=== PATIENT | female | born 1940 | race Caucasian/White ===

== ENCOUNTER → 2016-08-01 | Outpatient (CLI) | payer MEDICARE, BC | END | disposition home or self-care (01) | LOC: LABWHC1 08:01 | PROVIDERS: ATTEND Internal Medicine Endocrinology, Diabetes & Metabolism | DX: C73 Malignant neoplasm of thyroid gland (principal); R53.83 Other fatigue | CPT/HCPCS: 36415; 82533; 84443 ==

== ENCOUNTER → 2016-11-04 | Outpatient (CLI) | payer MEDICARE, BC | END | disposition home or self-care (01) | LOC: LABWHC1 13:14 | PROVIDERS: ATTEND Internal Medicine Endocrinology, Diabetes & Metabolism | DX: C73 Malignant neoplasm of thyroid gland (principal) | CPT/HCPCS: 36415; 84432; 84443; 86800 ==

== ENCOUNTER → 2016-12-16 | Outpatient (CLI) | payer MEDICARE, BC ==
--- NOTE | 2016-12-16 23:31 | MR ---
EXAMINATION TYPE: MR shoulder LT wo con DATE OF EXAM: 12/16/2016 6:09 PM COMPARISON: NONE HISTORY: Left shoulder pain x 3 years, no trauma TECHNIQUE: Multiplanar, multisequence imaging of the left shoulder is performed without contrast. FINDINGS: Biceps tendon is intact. Subscapularis tendon is intact. There are foci of increased fluid signal at the greater tuberosity of the humerus. There is linear defect related to reconstructive surgery at th e greater tuberosity. There is narrowing at the glenohumeral joint with spur formation. There is spur ring at the inferior glenoid labrum. The anterior and posterior labrum appear intact. There is no bel dence of a fracture. There is some thinning of the supraspinatus tendon with increased signal. IMPRESSION: Osteoarthritis in the glenohumeral joint. Previous surgery. Degenerative cysts in the greater tuberos ity. There is a full-thickness tear of the supraspinatus tendon without any significant retraction.
== END | disposition home or self-care (01) ==
LOC: RADMRIMAIN 17:30
PROVIDERS: ATTEND Family Medicine
DX: M19.012 Primary osteoarthritis, left shoulder (principal); M75.122 Complete rotator cuff tear or rupture of left shoulder, not specified as traumatic; Z98.890 Other specified postprocedural states

== ENCOUNTER 2017-01-21 17:11 | Emergency (ER) | payer MEDICARE, BC ==
[2017-01-21 17:23] VITALS: TEMP 99
--- NOTE | 2017-01-21 18:02 | ED ---
General Adult HPI - General Chief complaint: Recheck/Abnormal Lab/Rx Stated complaint: poss shingles-DrDennis Sent Time Seen by Provider: 01/21/17 17:31 Source: patient, RN notes reviewed Mode of arrival: ambulatory Limitations: no limitations - History of Present Illness Initial comments: 76-year-old presented emergency department with chief complaint of possible singles in his mouth. Patient states that her primary care physician diagnosed her with she was a month ago she had some pain, tingling and felt that her lip was swollen. Patient states it was on both sides of her mouth, tongue and her upper and lower lips. Patient states she's had zoster back shot. Patient states she never had any open lesions or sores. Patient states that she started feeling better after starting steroids in antibiotics was states that it got worse today so her doctor told her to come emergency department to be checked out. Patient states that she does feel run down does not feel well generalized. She denies any chest pain, shortness of breath, headache, dizziness, blurred vision, focal weakness, nausea vomiting. - Related Data Home Medications Medication Instructions Recorded Confirmed HYDROcodone/APAP 7.5-325MG [[place] 1 tab PO Q6HR PRN 06/13/14 01/21/17 7.5-325] Lisinopril [Zestril] 5 mg PO HS 06/13/14 01/21/17 Verapamil HCl [Verapamil ER] 240 mg PO QAM 06/13/14 01/21/17 PARoxetine [Paxil] 20 mg PO HS 01/18/15 01/21/17 Aspirin 81 mg PO DAILY 02/21/16 01/21/17 Atorvastatin [Lipitor] 40 mg PO DAILY 02/21/16 01/21/17 ALPRAZolam [Xanax] 0.25 mg PO DAILY PRN 01/21/17 01/21/17 Levothyroxine Sodium [Synthroid] 100 mcg PO DAILY 01/21/17 01/21/17 Omeprazole [PriLOSEC] 20 mg PO DAILY 01/21/17 01/21/17 methylPREDNISolone Dose Pack See Taper PO DAILY 01/21/17 01/21/17 [Medrol Dose Pack] valACYclovir HCL [Valtrex] 1,000 mg PO Q12H 01/21/17 01/21/17 Allergies Allergy/AdvReac Type Severity Reaction Status Date / Time Sulfa (Sulfonamide Allergy Unknown Verified 01/21/17 17:50 Antibiotics) Review of Systems ROS Statement: Those systems with pertinent positive or pertinent negative responses have been documented in the HPI. ROS Other: All systems not noted in ROS Statement are negative. Past Medical History Past Medical History: Cancer, GERD/Reflux, Hyperlipidemia, Hypertension, Osteoarthritis (OA), Pneumonia, Thyroid Disorder Additional Past Medical History / Comment(s): HX THYROID CA with surgery, HEART MURMUR, SPINAL STENOSIS, post op pneumonia, iron deficiency anemia. History of Any Multi-Drug Resistant Organisms: None Reported Past Surgical History: Appendectomy, Back Surgery, Bladder Surgery, Hysterectomy , Joint Replacement, Orthopedic Surgery Additional Past Surgical History / Comment(s): CERVICAL SURGERY. TOTAL LT KNEE AND RT HIP. , SAVANNA ROTATOR CUFF REPAIR, THYROIDECTOMY. EXC SAVANNA CATARACTS. Bladder suspension, EGDs with bx's/colonoscopy Past Anesthesia/Blood Transfusion Reactions: Motion Sickness, Postoperative Nausea & Vomiting (PONV) Additional Past Anesthesia/Blood Transfusion Reaction / Comment(s): DEVELOPED PNEUMONIA AFTER KNEE REPLACED. SOME NAUSEA PO, NO VOMITING. Past Psychological History: Anxiety, Depression Smoking Status: Former smoker Past Alcohol Use History: Occasional Past Drug Use History: None Reported - Past Family History Father Family Medical History: Cancer Additional Family Medical History / Comment(s): Father had prostate cancer. He at the age of 92 yrs. Mother Family Medical History: No Reported History Additional Family Medical History / Comment(s): Mother is 98yrs old. She has eyesight problems. General Exam Limitations: no limitations General appearance: alert, in no apparent distress Head exam: Present: atraumatic, normocephalic, normal inspection Eye exam: Present: normal appearance, PERRL, EOMI. Absent: scleral icterus, conjunctival injection, periorbital swelling ENT exam: Present: mucous membranes moist. Absent: normal exam, normal oropharynx (small macular on the palate no open lesions or sores no swelling noted) Neck exam: Present: normal inspection. Absent: tenderness, meningismus, lymphadenopathy Respiratory exam: Present: normal lung sounds bilaterally. Absent: respiratory distress, wheezes, rales, rhonchi, stridor Cardiovascular Exam: Present: regular rate, normal rhythm, normal heart sounds. Absent: systolic murmur, diastolic murmur, rubs, gallop, clicks Neurological exam: Present: alert, oriented X3, CN II-XII intact, reflexes normal. Absent: motor sensory deficit Skin exam: Present: warm, dry, intact, normal color. Absent: rash Course Vital Signs 01/21/17 17:21 Temperature 99.0 F Pulse Rate 82 Respiratory 20 Rate Blood Pressure 128/59 O2 Sat by Pulse 96 Oximetry Medical Decision Making - Medical Decision Making 76-year-old female presented for evaluation of abnormal feeling of her mouth. Patient's laboratory does not reveal any abnormality's. Patient did have one macular sore on the palate of her mouth. There is no open lesions or sores. This is less likely to be herpes zoster. The rash her feeling has been bilateral. Patient is likely has some sort of viral illness. Patiently discharges time return parameters were discussed. - Lab Data Result diagrams: 01/21/17 18:15 01/21/17 18:15 Lab Results 01/21/17 01/21/17 Range/Units 18:15 18:15 WBC 15.7 H (3.8-10.6) k/uL RBC 4.61 (3.80-5.40) m/uL Hgb 13.3 (11.4-16.0) gm/dL Hct 39.0 (34.0-46.0) % MCV 84.6 (80.0-100.0) fL MCH 28.9 (25.0-35.0) pg MCHC 34.1 (31.0-37.0) g/dL RDW 14.1 (11.5-15.5) % Plt Count 346 (150-450) k/uL Neutrophils % 86 % Lymphocytes % 11 % Monocytes % 3 % Eosinophils % 0 % Basophils % 0 % Neutrophils # 13.4 H (1.3-7.7) k/uL Lymphocytes # 1.6 (1.0-4.8) k/uL Monocytes # 0.5 (0-1.0) k/uL Eosinophils # 0.0 (0-0.7) k/uL Basophils # 0.0 (0-0.2) k/uL Sodium 140 (137-145) mmol/L Potassium 4.2 (3.5-5.1) mmol/L Chloride 101 (98-107) mmol/L Carbon Dioxide 26 (22-30) mmol/L Anion Gap 13 mmol/L BUN 21 H (7-17) mg/dL Creatinine 0.90 (0.52-1.04) mg/dL Est GFR (MDRD) Af Amer >60 (>60 ml/min/1.73 sqM) Est GFR (MDRD) Non-Af >60 (>60 ml/min/1.73 sqM) Glucose 136 H (74-99) mg/dL Calcium 9.7 (8.4-10.2) mg/dL Total Bilirubin 0.5 (0.2-1.3) mg/dL AST 15 (14-36) U/L ALT 29 (9-52) U/L Alkaline Phosphatase 92 (38-126) U/L C-Reactive Protein <5.0 (<10.0) mg/L Total Protein 6.9 (6.3-8.2) g/dL Albumin 4.4 (3.5-5.0) g/dL Disposition Clinical Impression: Viral illness, Mouth problem Disposition: HOME SELF-CARE Condition: Stable Instructions: Viral Syndrome (ED) Additional Instructions: Please return to the Emergency Department if symptoms worsen or any other concerns. Referrals: Juana Borrero MD [Primary Care Provider] - 1-2 days Time of Disposition: 19:27
[2017-01-21 18:35] LABS: Basophils % (A) 0 %; CHCM 33.3; Eosinophils % (A) 0 %; HDW 2.52; HGB 13.3 gm/dL (11.4-16.0); Luc # (Auto) 0.07; Luc % (Auto) 0; Lymphocytes # (A) 1.6 k/uL (1.0-4.8); Lymphocytes % (A) 11 %; MCH 28.9 pg (25.0-35.0); MCHC 34.1 g/dL (31.0-37.0); MCV 84.6 fL (80.0-100.0); Mean Platelet Volume 7.4; Monocytes # (A) 0.5 k/uL (0-1.0); Monocytes % (A) 3 %; Neutrophils # (A) 13.4 k/uL (1.3-7.7); Neutrophils % (A) 86 %; RBC 4.61 m/uL (3.80-5.40); RDW 14.1 % (11.5-15.5); WBC 15.7 k/uL (3.8-10.6)
[2017-01-21 18:53] LABS: ALT 29 U/L (9-52); AST 15 U/L (14-36); Alkaline Phosphatase 92 U/L (38-126); Anion Gap 13 mmol/L; Blood Urea Nitrogen 21 mg/dL (7-17); C Reactive Protein <5.0 mg/L (<10.0); Calcium 9.7 mg/dL (8.4-10.2); Carbon Dioxide 26 mmol/L (22-30); Chloride 101 mmol/L (98-107); Glucose 136 mg/dL (74-99); Non-African American GFR(MDRD) >60 (>60 ml/min/1.73 sqM); Potassium 4.2 mmol/L (3.5-5.1); Sodium 140 mmol/L (137-145); Total Bilirubin 0.5 mg/dL (0.2-1.3); Total Protein 6.9 g/dL (6.3-8.2)
[2017-01-21 19:41] VITALS: BP 129/60; PULSE 71; RESP 18
== END 2017-01-21 19:41 | disposition home or self-care (01) ==
LOC: EC 17:11
DX: B34.9 Viral infection, unspecified (principal); K21.9 Gastro-esophageal reflux disease without esophagitis; E78.5 Hyperlipidemia, unspecified; I10 Essential (primary) hypertension; M19.90 Unspecified osteoarthritis, unspecified site; E07.9 Disorder of thyroid, unspecified; F32.9 Major depressive disorder, single episode, unspecified; F41.9 Anxiety disorder, unspecified; Z87.891 Personal history of nicotine dependence; Z79.82 Long term (current) use of aspirin; Z79.52 Long term (current) use of systemic steroids; Z79.899 Other long term (current) drug therapy; Z88.2 Allergy status to sulfonamides
CPT/HCPCS: 36415; 80053; 85025; 86140; 86787; 99283

== ENCOUNTER 2017-01-26 13:57 | Inpatient (IN) | payer MEDICARE, BC ==
[2017-01-26] MEDS ORDERED: SODIUM CHLORIDE 0.9% 500 ML IV STA (14:21)
[2017-01-26] MEDS ORDERED: ACETAMINOPHEN TAB 500 MG TAB PO STA (14:21)
[2017-01-26] MEDS ORDERED: LORazepam 2 MG/ML SYRINGE IV STA (14:23)
[2017-01-26 14:25] LABS: Glucose,Whole Blood 118 mg/dL (75-99)
[2017-01-26 14:31] LABS: Basophils % (A) 0 %; CHCM 33.3; Eosinophils # (A) 0.1 k/uL (0-0.7); Eosinophils % (A) 1 %; HCT 39.7 % (34.0-46.0); HGB 13.4 gm/dL (11.4-16.0); Luc # (Auto) 0.07; Luc % (Auto) 0; Lymphocytes # (A) 1.8 k/uL (1.0-4.8); Lymphocytes % (A) 11 %; MCH 28.5 pg (25.0-35.0); MCHC 33.7 g/dL (31.0-37.0); MCV 84.7 fL (80.0-100.0); Monocytes # (A) 0.4 k/uL (0-1.0); Monocytes % (A) 3 %; Neutrophils # (A) 14.2 k/uL (1.3-7.7); Neutrophils % (A) 86 %; RBC 4.68 m/uL (3.80-5.40); RDW 14.7 % (11.5-15.5); WBC 16.6 k/uL (3.8-10.6); WBC (Perox) 16.43
--- NOTE | 2017-01-26 14:33 | ED ---
General Adult HPI - General Chief complaint: Shortness of Breath Stated complaint: shaky/SOB/weakness/headache Time Seen by Provider: 01/26/17 14:05 Source: patient, RN notes reviewed Mode of arrival: wheelchair Limitations: no limitations - History of Present Illness Initial comments: This is a 76 year female who presents emergency department been treated recently for a viral infection she is on Valtrex Neurontin and prednisone. Patient comes in today because at 11:00 she started feeling shaky inside her body and then felt very weak throughout her whole body and at times felt short of breath and had palpitations at different times. Patient denies any chest pain. Patient states he has a mild headache but she has had headaches in the past of similar quality. Patient states she's been evaluated for these headaches in the past and no one can ever find anything. Patient denies any abdominal pain patient denies nausea vomiting or diarrhea. Patient denies any new medications in the last few days so her prednisone and Valtrex Neurontin are new within the last 10 days. Patient denies any [id number] medications. Patient states she had some yogurt for lunch which is normal. Patient denies any rashes lesions or erythematous areas. Patient denies any dysuria hematuria urinary frequency - Related Data Home Medications Medication Instructions Recorded Confirmed HYDROcodone/APAP 7.5-325MG [[place] 1 tab PO Q6HR PRN 06/13/14 01/26/17 7.5-325] Lisinopril [Zestril] 5 mg PO HS 06/13/14 01/26/17 Verapamil HCl [Verapamil ER] 240 mg PO QAM 06/13/14 01/26/17 Aspirin 81 mg PO DAILY 02/21/16 01/26/17 Atorvastatin [Lipitor] 40 mg PO DAILY 02/21/16 01/26/17 ALPRAZolam [Xanax] 0.25 mg PO DAILY PRN 01/21/17 01/26/17 Levothyroxine Sodium [Synthroid] 100 mcg PO DAILY 01/21/17 01/26/17 Omeprazole [PriLOSEC] 20 mg PO DAILY 01/21/17 01/26/17 valACYclovir HCL [Valtrex] 1,000 mg PO Q8H 01/21/17 01/26/17 Gabapentin [Neurontin] 300 mg PO TID 01/26/17 01/26/17 PARoxetine HCL [Paxil] 40 mg PO HS 01/26/17 01/26/17 predniSONE See Taper PO DAILY 01/26/17 01/26/17 Allergies Allergy/AdvReac Type Severity Reaction Status Date / Time Sulfa (Sulfonamide Allergy Unknown Verified 01/26/17 14:43 Antibiotics) Review of Systems ROS Statement: Those systems with pertinent positive or pertinent negative responses have been documented in the HPI. ROS Other: All systems not noted in ROS Statement are negative. Past Medical History Past Medical History: Cancer, GERD/Reflux, Hyperlipidemia, Hypertension, Osteoarthritis (OA), Pneumonia, Thyroid Disorder Additional Past Medical History / Comment(s): HX THYROID CA with surgery, HEART MURMUR, SPINAL STENOSIS, post op pneumonia, iron deficiency anemia. History of Any Multi-Drug Resistant Organisms: None Reported Past Surgical History: Appendectomy, Back Surgery, Bladder Surgery, Hysterectomy , Joint Replacement, Orthopedic Surgery Additional Past Surgical History / Comment(s): CERVICAL SURGERY. TOTAL LT KNEE AND RT HIP. , SAVANNA ROTATOR CUFF REPAIR, THYROIDECTOMY. EXC SAVANNA CATARACTS. Bladder suspension, EGDs with bx's/colonoscopy Past Anesthesia/Blood Transfusion Reactions: Motion Sickness, Postoperative Nausea & Vomiting (PONV) Additional Past Anesthesia/Blood Transfusion Reaction / Comment(s): DEVELOPED PNEUMONIA AFTER KNEE REPLACED. SOME NAUSEA PO, NO VOMITING. Past Psychological History: Anxiety, Depression Smoking Status: Former smoker Past Alcohol Use History: Occasional Past Drug Use History: None Reported - Past Family History Father Family Medical History: Cancer Additional Family Medical History / Comment(s): Father had prostate cancer. He at the age of 92 yrs. Mother Family Medical History: No Reported History Additional Family Medical History / Comment(s): Mother is 98yrs old. She has eyesight problems. General Exam - General Exam Comments Initial Comments: GENERAL: Patient is well-developed and well-nourished. Patient is nontoxic and well- hydrated and is in mild distress. ENT: Neck is soft and supple. No significant lymphadenopathy is noted. Oropharynx is clear. Moist mucous membranes. Neck has full range of motion without eliciting any pain. EYES: The sclera were anicteric and conjunctiva were pink and moist. Extraocular movements were intact and pupils were equal round and reactive to light. Eyelids were unremarkable. PULMONARY: Unlabored respirations. Good breath sounds bilaterally. No audible rales rhonchi or wheezing was noted. CARDIOVASCULAR: There is a regular rate and rhythm without any murmurs gallops or rubs. ABDOMEN: Soft and nontender with normal bowel sounds. No palpable organomegaly was noted. There is no palpable pulsatile mass. SKIN: Skin is clear with no lesions or rashes and otherwise unremarkable. NEUROLOGIC: Patient is alert and oriented x3. Cranial nerves II through XII are grossly intact. Motor and sensory are also intact. Normal speech, volume and content. Symmetrical smile. MUSCULOSKELETAL: Normal extremities with adequate strength and full range of motion. No lower extremity swelling or edema. No calf tenderness. LYMPHATICS: No significant lymphadenopathy is noted PSYCHIATRIC: Normal psychiatric evaluation. Normal interpersonal interactions appears functionally intact in deals appropriately with others. No signs of depression. Mildly anxious Limitations: no limitations Course Vital Signs 01/26/17 01/26/17 01/26/17 14:04 14:26 15:03 Temperature 98.1 F Pulse Rate 72 65 Respiratory 20 18 16 Rate Blood Pressure 123/57 157/65 O2 Sat by Pulse 97 98 Oximetry 01/26/17 16:15 Temperature Pulse Rate 76 Respiratory 18 Rate Blood Pressure 158/68 O2 Sat by Pulse 96 Oximetry Medical Decision Making - Medical Decision Making EKG shows a normal sinus rhythm at 72 bpm FL interval is 174 QRS is 84 QT interval 380 QTC is 416. Patient's EKG shows no ST segment elevation or depression or T wave abnormalities are noted - Lab Data Result diagrams: 01/26/17 14:15 01/26/17 14:15 Lab Results 01/26/17 01/26/17 01/26/17 Range/Units 14:15 14:15 14:15 WBC 16.6 H (3.8-10.6) k/uL RBC 4.68 (3.80-5.40) m/uL Hgb 13.4 (11.4-16.0) gm/dL Hct 39.7 (34.0-46.0) % MCV 84.7 (80.0-100.0) fL MCH 28.5 (25.0-35.0) pg MCHC 33.7 (31.0-37.0) g/dL RDW 14.7 (11.5-15.5) % Plt Count 367 (150-450) k/uL Neutrophils % 86 % Lymphocytes % 11 % Monocytes % 3 % Eosinophils % 1 % Basophils % 0 % Neutrophils # 14.2 H (1.3-7.7) k/uL Lymphocytes # 1.8 (1.0-4.8) k/uL Monocytes # 0.4 (0-1.0) k/uL Eosinophils # 0.1 (0-0.7) k/uL Basophils # 0.0 (0-0.2) k/uL PT 9.5 (9.0-12.0) sec INR 0.9 (<1.1) APTT 22.1 (22.0-30.0) sec D-Dimer 0.24 (<0.60) mg/L FEU Sodium 139 (137-145) mmol/L Potassium 4.4 (3.5-5.1) mmol/L Chloride 100 (98-107) mmol/L Carbon Dioxide 27 (22-30) mmol/L Anion Gap 12 mmol/L BUN 22 H (7-17) mg/dL Creatinine 0.82 (0.52-1.04) mg/dL Est GFR (MDRD) Af Amer >60 (>60 ml/min/1.73 sqM) Est GFR (MDRD) Non-Af >60 (>60 ml/min/1.73 sqM) Glucose 116 H (74-99) mg/dL POC Glucose (mg/dL) (75-99) mg/dL POC Glu Craniologist ID Calcium 9.3 (8.4-10.2) mg/dL Magnesium 2.1 (1.6-2.3) mg/dL Total Bilirubin 0.8 (0.2-1.3) mg/dL AST 16 (14-36) U/L ALT 18 (9-52) U/L Alkaline Phosphatase 82 (38-126) U/L Total Creatine Kinase (30-135) U/L CK-MB (CK-2) (0.0-2.4) ng/mL CK-MB (CK-2) Rel Index Troponin I (0.000-0.034) ng/mL Total Protein 7.0 (6.3-8.2) g/dL Albumin 4.2 (3.5-5.0) g/dL TSH 0.910 (0.465-4.680) mIU/L Free T4 1.10 (0.78-2.19) ng/dL Urine Color Urine Appearance (Clear) Urine pH (5.0-8.0) Ur Specific [place] (1.001-1.035) Urine Protein (Negative) Urine Glucose (UA) (Negative) Urine Ketones (Negative) Urine Blood (Negative) Urine Nitrite (Negative) Urine Bilirubin (Negative) Urine Urobilinogen (<2.0) mg/dL Ur Leukocyte Esterase (Negative) Urine RBC (0-5) /hpf Urine WBC (0-5) /hpf Ur Squamous Epith Cells (0-4) /hpf Hyaline Casts (0-2) /lpf Urine Mucus (None) /hpf 01/26/17 01/26/17 01/26/17 Range/Units 14:15 14:22 14:40 WBC (3.8-10.6) k/uL RBC (3.80-5.40) m/uL Hgb (11.4-16.0) gm/dL Hct (34.0-46.0) % MCV (80.0-100.0) fL MCH (25.0-35.0) pg MCHC (31.0-37.0) g/dL RDW (11.5-15.5) % Plt Count (150-450) k/uL Neutrophils % % Lymphocytes % % Monocytes % % Eosinophils % % Basophils % % Neutrophils # (1.3-7.7) k/uL Lymphocytes # (1.0-4.8) k/uL Monocytes # (0-1.0) k/uL Eosinophils # (0-0.7) k/uL Basophils # (0-0.2) k/uL PT (9.0-12.0) sec INR (<1.1) APTT (22.0-30.0) sec D-Dimer (<0.60) mg/L FEU Sodium (137-145) mmol/L Potassium (3.5-5.1) mmol/L Chloride (98-107) mmol/L Carbon Dioxide (22-30) mmol/L Anion Gap mmol/L BUN (7-17) mg/dL Creatinine (0.52-1.04) mg/dL Est GFR (MDRD) Af Amer (>60 ml/min/1.73 sqM) Est GFR (MDRD) Non-Af (>60 ml/min/1.73 sqM) Glucose (74-99) mg/dL POC Glucose (mg/dL) 118 H (75-99) mg/dL POC Glu Craniologist ID Emily Jacques Calcium (8.4-10.2) mg/dL Magnesium (1.6-2.3) mg/dL Total Bilirubin (0.2-1.3) mg/dL AST (14-36) U/L ALT (9-52) U/L Alkaline Phosphatase (38-126) U/L Total Creatine Kinase 29 L (30-135) U/L CK-MB (CK-2) 0.3 (0.0-2.4) ng/mL CK-MB (CK-2) Rel Index 1.0 Troponin I <0.012 (0.000-0.034) ng/mL Total Protein (6.3-8.2) g/dL Albumin (3.5-5.0) g/dL TSH (0.465-4.680) mIU/L Free T4 (0.78-2.19) ng/dL Urine Color Yellow Urine Appearance Clear (Clear) Urine pH 6.0 (5.0-8.0) Ur Specific [place] 1.013 (1.001-1.035) Urine Protein Negative (Negative) Urine Glucose (UA) Negative (Negative) Urine Ketones Negative (Negative) Urine Blood Negative (Negative) Urine Nitrite Negative (Negative) Urine Bilirubin Negative (Negative) Urine Urobilinogen <2.0 (<2.0) mg/dL Ur Leukocyte Esterase Trace H (Negative) Urine RBC <1 (0-5) /hpf Urine WBC <1 (0-5) /hpf Ur Squamous Epith Cells <1 (0-4) /hpf Hyaline Casts 4 H (0-2) /lpf Urine Mucus Rare H (None) /hpf Disposition Clinical Impression: Dyspnea, Tremors of nervous system, Facial twitching Disposition: ADMITTED IP TO THIS [facility] Referrals: Juana Borrero MD [Primary Care Provider] - 1-2 days Time of Disposition: 16:18
[2017-01-26 14:44] LABS: Partial Thromboplastin Time 22.1 sec (22.0-30.0)
[2017-01-26 14:47] LABS: ALT 18 U/L (9-52); AST 16 U/L (14-36); Alkaline Phosphatase 82 U/L (38-126); Anion Gap 12 mmol/L; Blood Urea Nitrogen 22 mg/dL (7-17); Calcium 9.3 mg/dL (8.4-10.2); Carbon Dioxide 27 mmol/L (22-30); Chloride 100 mmol/L (98-107); Glucose 116 mg/dL (74-99); Magnesium 2.1 mg/dL (1.6-2.3); Non-African American GFR(MDRD) >60 (>60 ml/min/1.73 sqM); Potassium 4.4 mmol/L (3.5-5.1); Sodium 139 mmol/L (137-145); Total Bilirubin 0.8 mg/dL (0.2-1.3)
[2017-01-26 14:48] LABS: INR 0.9 (<1.1); Prothrombin Time 9.5 sec (9.0-12.0)
[2017-01-26 14:49] LABS: Creatine Kinase 29 U/L (30-135)
--- NOTE | 2017-01-26 14:57 | XR ---
EXAMINATION TYPE: XR chest 2V DATE OF EXAM: 01/26/2017 COMPARISON: 02/24/2016 HISTORY: Shortness of breath TECHNIQUE: Frontal and lateral views of the chest are obtained. FINDINGS: Scattered senescent parenchymal changes noted. Hyperinflation compatible with COPD. No evidence for infiltrate. No evidence for atelectasis. Heart size is stable. Mediastinal structures are stable and grossly unremarkable. No evidence for hilar prominence. Degenerative changes dorsal spine. IMPRESSION: 1. No evidence for acute pulmonary disease.
[2017-01-26 15:02] LABS: Creatine Kinase MB 0.3 ng/mL (0.0-2.4); Troponin I <0.012 ng/mL (0.000-0.034)
[2017-01-26 15:05] LABS: Appearance,Urine Clear (Clear); Bilirubin,Urine Negative (Negative); Glucose,Urine (UA) Negative (Negative); Ketones,Urine Negative (Negative); Leukocyte Esterase,Urine Trace (Negative); Mucus,Urine Rare /hpf; Nitrite,Urine Negative (Negative); Particle Count 1488; Protein,Urine Negative (Negative); RBC,Urine <1 /hpf (0-5); Specific Gravity,Urine 1.013 (1.001-1.035); Squamous Epithelial Cell,Urine <1 /hpf (0-4); UA Billing (MACRO vs. MICRO) MICRO; Urobilinogen,Urine <2.0 mg/dL (<2.0); WBC,Urine <1 /hpf (0-5)
[2017-01-26] MEDS ORDERED: diphenhydrAMINE 50 MG/ML 1 ML VIAL IVP STA (16:02)
[2017-01-26] MEDS ORDERED: SODIUM CHLORIDE 0.9% 1,000 ML IV ONE (16:20)
[2017-01-26] MEDS ORDERED: ALPRAZolam 0.25 MG TAB PO PRN (18:00)
[2017-01-26] MEDS: valACYclovir HCL 1,000 MG TABLET PO SCH (19:27)
[2017-01-26] MEDS: HYDROcodone/APAP 7.5-325MG 1 EACH TAB PO PRN (19:30)
--- NOTE | 2017-01-26 19:40 | P.CNNES ---
History of Present Illness Consult date: 01/26/17 Reason for Consult: Patient with oral numbness and headaches with tremors. History of Present Illness: This patient is a 76-year-old right-handed white female who apparently a week ago was seen by her primary care physician Dr. Borrero for symptoms of numbness involving her mouth and tongue as well as the lip area. Her primary care physician felt this was likely a viral syndrome and started her on treatment which included prednisone, Valtrex, and Neurontin. She has been taking this medication since the onset of symptoms last week. There has been some improvement but still she complains of burning sensation around the lip area bilaterally. She states that her to stop on is also still burning in nature. The patient went to see her physician again due to these symptoms and was told to continue on her treatment. Today the symptoms did not seem to improve and she decided to come to the emergency room for further evaluation. She was seen in the ER at [facility] by Dr. Ballard. In the ER she complained of having tremors however these were not visual tremors. On further questioning she states she feels tremors are inside and not visible. She states these are in her tremors and she attributes some of this to anxiety and nervousness. She does have a history of underlying anxiety disorder for which she is taking Paxil. Patient states that she does have a history of thyroid disorder which is followed by her creative project manager. She states her last check of her thyroid function was all within normal limits. The patient denies any previous history of TIA or stroke. She did describe some in her tremors but was not specific whether any of the tremors involve one side of the body or not. She states it's her entire body when she does experience these symptoms. She states that when she stands to ambulate she becomes more tremulous. She does have history of thyroid cancer for which she underwent surgery. As noted she follows with her creative project manager. She is otherwise been doing fine until this recent episode of burning sensation involving the lips and tongue area. She did check her mouth and this was also checked by her primary care physician whether she may have signs of shingles. There were no lesions. There is no evidence of any cold sores in her mouth. She has not had any recent dental work done. In the ER she also complained of headache. The headaches are nuisance headaches as she has been suffering with headaches for years. On examination today she is noted to have bilateral occipital tenderness on palpation suggesting occipital neuritis. The patient is now admitted and neurology has been consulted for further evaluation and recommendations. Review of Systems Constitutional: Denies chills, Denies fever Eyes: denies blurred vision, denies pain Ears, nose, mouth and throat: Denies headache, Denies sore throat Cardiovascular: Denies chest pain, Denies shortness of breath Respiratory: Denies cough Gastrointestinal: Denies abdominal pain, Denies diarrhea, Denies nausea, Denies vomiting Genitourinary: Denies dysuria, Denies hematuria Musculoskeletal: Denies myalgias Integumentary: Denies pruritus, Denies rash Neurological: Reports burning pain, Reports headaches, Reports sensory deficit, Reports tingling, Denies numbness, Denies weakness Psychiatric: Denies anxiety, Denies depression Endocrine: Denies fatigue, Denies weight change Past Medical History Past Medical History: Cancer, GERD/Reflux, Hyperlipidemia, Hypertension, Osteoarthritis (OA), Pneumonia, Thyroid Disorder Additional Past Medical History / Comment(s): HX THYROID CA with surgery, HEART MURMUR, SPINAL STENOSIS, post op pneumonia, iron deficiency anemia. History of Any Multi-Drug Resistant Organisms: None Reported Past Surgical History: Appendectomy, Back Surgery, Bladder Surgery, Hysterectomy , Joint Replacement, Orthopedic Surgery Additional Past Surgical History / Comment(s): CERVICAL SURGERY. TOTAL LT KNEE AND RT HIP. , SAVANNA ROTATOR CUFF REPAIR, THYROIDECTOMY. EXC SAVANNA CATARACTS. Bladder suspension, EGDs with bx's/colonoscopy Past Anesthesia/Blood Transfusion Reactions: Motion Sickness, Postoperative Nausea & Vomiting (PONV) Additional Past Anesthesia/Blood Transfusion Reaction / Comment(s): DEVELOPED PNEUMONIA AFTER KNEE REPLACED. SOME NAUSEA PO, NO VOMITING. Past Psychological History: Anxiety, Depression Additional Psychological History / Comment(s): Pt states her 99 yr old mother lives with her. Pt is independent. She uses no assistive device. She drives. Smoking Status: Former smoker Past Alcohol Use History: Occasional Past Drug Use History: None Reported - Past Family History Father Family Medical History: Cancer Additional Family Medical History / Comment(s): Father had prostate cancer. He at the age of 92 yrs. Mother Family Medical History: No Reported History Additional Family Medical History / Comment(s): Mother is 99yrs old. She has eyesight problems. Medications and Allergies Home Medications Medication Instructions Recorded Confirmed Type HYDROcodone/APAP 7.5-325MG [[place] 1 tab PO Q6HR PRN 06/13/14 01/26/17 History 7.5-325] Lisinopril [Zestril] 5 mg PO HS 06/13/14 01/26/17 History Verapamil HCl [Verapamil ER] 240 mg PO QAM 06/13/14 01/26/17 History Aspirin 81 mg PO DAILY 02/21/16 01/26/17 History Atorvastatin [Lipitor] 40 mg PO DAILY 02/21/16 01/26/17 History ALPRAZolam [Xanax] 0.25 mg PO DAILY PRN 01/21/17 01/26/17 History Levothyroxine Sodium [Synthroid] 100 mcg PO DAILY 01/21/17 01/26/17 History Omeprazole [PriLOSEC] 20 mg PO DAILY 01/21/17 01/26/17 History valACYclovir HCL [Valtrex] 1,000 mg PO Q8H 01/21/17 01/26/17 History Gabapentin [Neurontin] 300 mg PO TID 01/26/17 01/26/17 History PARoxetine HCL [Paxil] 40 mg PO HS 01/26/17 01/26/17 History predniSONE See Taper PO DAILY 01/26/17 01/26/17 History Allergies Allergy/AdvReac Type Severity Reaction Status Date / Time Sulfa (Sulfonamide Allergy Unknown Verified 01/26/17 14:43 Antibiotics) Physical Examination - Vital Signs Vital Signs: Vital Signs Temp Pulse Pulse Resp BP BP Pulse Ox 01/26/17 17:01 98.7 F 69 16 162/87 95 01/26/17 16:30 96 01/26/17 16:15 97.9 F 76 18 158/68 96 01/26/17 15:03 65 16 157/65 98 01/26/17 14:26 18 01/26/17 14:04 98.1 F 72 20 123/57 97 Intake and Output 01/26/17 01/26/17 01/26/17 06:59 14:59 22:59 Intake Total 236 Balance 236 Intake: Oral 236 Other: Weight 73.482 kg 74.1 kg Patient Weight 01/27/17 06:59 Weight 74.1 kg - Constitutional General appearance: average body habitus, cooperative - EENT EENT: PERRL, mucous membranes moist - Respiratory Respiratory: lungs clear, normal breath sounds - Cardiovascular Cardiovascular: regular rate, normal S1, normal S2 Extremities: no peripheral edema bilaterally - Gastrointestinal Gastrointestinal: normoactive bowel sounds - Integumentary Integumentary: normal - Neurologic Cranial nerve examination: PERRL, EOMI, VFF, V1/V2/V3 grossly intact, face symmetric, tongue midline, intact gag reflex, intact corneal reflex, normal palatal elevation Speech examination: intact Sensorimotor examination: intact Detailed motor examination: grossly full strength in all extremities Motor examination - right side: 45: biceps, triceps, wrist flexion, wrist extension, director corporate communications, hip flexors, knee extensors, dorsiflexion, toe extension (EHL) , plantarflexion Motor examination - left side: 45: biceps, triceps, wrist flexion, wrist extension, director corporate communications, hip flexors, knee extensors, dorsiflexion, toe extension (EHL) , plantarflexion Detailed sensory examination: intact Reflex and gait examination: intact Reflexes: 1+: ankle, bicep, knee, tricep - Musculoskeletal Musculoskeletal: no pain - Psychiatric Psychiatric: mood/affect appropriate, cooperative Results - Laboratory Findings CBC and BMP: 01/26/17 14:15 01/26/17 14:15 Abnormal Lab Findings: Abnormal Labs 01/26/17 01/26/17 01/26/17 14:15 14:15 14:15 WBC 16.6 H Neutrophils # 14.2 H BUN 22 H Glucose 116 H POC Glucose (mg/dL) Total Creatine Kinase 29 L Ur Leukocyte Esterase Hyaline Casts Urine Mucus 01/26/17 01/26/17 14:22 14:40 WBC Neutrophils # BUN Glucose POC Glucose (mg/dL) 118 H Total Creatine Kinase Ur Leukocyte Esterase Trace H Hyaline Casts 4 H Urine Mucus Rare H Assessment and Plan (1) Vertebrobasilar ischemia Status: Acute Code(s): G45.0 - VERTEBRO-BASILAR ARTERY SYNDROME (2) Occipital neuritis Status: Acute Code(s): M54.81 - OCCIPITAL NEURALGIA (3) Benign essential tremor Status: Acute Code(s): G25.0 - ESSENTIAL TREMOR (4) Viral syndrome Status: Acute Code(s): B34.9 - VIRAL INFECTION, UNSPECIFIED Plan: This patient is a 76-year-old female who was admitted to Hospital for symptoms of burning sensation involving the oral cavity lips and tongue area. Symptoms began over a week ago for which she had seen her primary care physician Dr. Borrero. She was told that she likely had a viral syndrome and was started on treatment with Valtrex, Neurontin, and prednisone. She has been taking these medications for over a week with only slight improvement. She was admitted to the hospital due to worsening symptoms and also symptoms of tremors. Patient describes these errors in her tremors which are not visible at all times. She feels very shaky and tremulous when ambulating. She denies any history of dizziness or vertigo at this time. Her neurological examination is nonfocal. Examination of the oral cavity fails to reveal any evidence of ulceration or cold sores. At this time we have recommended that she be evaluated for possibility of brainstem ischemia. We will obtain a MRI of the brain for further evaluation to rule out brainstem ischemia. She may continue on her current medications for treatment of viral syndrome. She does have evidence on examination today of bilateral occipital neuritis. We will obtain a anesthesia consultation for bilateral occipital nerve block procedure. At this time there is no evidence of viral syndrome at this time however she may complete her current course of therapy. We will continue close neurological follow-up of this patient during this admission. Her overall prognosis at this time remains guarded. Time with Patient: Greater than 30
[2017-01-26] MEDS: PARoxetine 20 MG TAB PO SCH (20:48)
[2017-01-26] MEDS: GABAPENTIN 300 MG CAP PO SCH (20:48)
[2017-01-26] MEDS ORDERED: LISINOPRIL 5 MG TAB PO SCH (21:00)
[2017-01-27] MEDS: HYDROcodone/APAP 7.5-325MG 1 EACH TAB PO PRN ×3 (01:24→21:10)
[2017-01-27] MEDS: valACYclovir HCL 1,000 MG TABLET PO SCH ×3 (02:52→18:46)
[2017-01-27] MEDS: LEVOTHYROXINE 100 MCG TAB PO SCH (06:23)
[2017-01-27] MEDS: PANTOPRAZOLE 40 MG TABLET PO SCH (08:27)
[2017-01-27] MEDS: GABAPENTIN 300 MG CAP PO SCH (08:29)
[2017-01-27] MEDS: ATORVASTATIN 40 MG TAB PO SCH (08:29)
[2017-01-27] MEDS: ASPIRIN 81 MG CHEW PO SCH (08:29)
[2017-01-27] MEDS: VERAPAMIL SR 240 MG TABLET.ER PO SCH (08:29)
[2017-01-27] MEDS: predniSONE 10 MG TAB PO SCH (08:31)
--- NOTE | 2017-01-27 13:45 | P.HPIM ---
History of Present Illness H&P Date: 01/27/17 Chief Complaint: Bilateral lips following with burning sensation 1 week This is a 76-year-old female, patient of Dr. Perdomo. She has known past medical history of hypertension, hyperlipidemia, and thyroid cancer with thyroidectomy. Patient presents to the emergency room with complaints of upper and lower lip swelling with burning sensation also some tongue swelling and discomfort of her mouth. She initially was seen by her primary care physician and was thought of had a viral syndrome was started on prednisone, Valtrex and Neurontin. Patient reports she was taken his medication symptoms worsened she went back to see Dr. Perdomo and the Neurontin dose was increased to 300 mg 3 times a day. Patient reports also having kind of a jittery sensation in her belly and throughout her body. Since symptoms were not improving she came into the emergency room for further evaluation and treatment. She reports the initial symptoms had started about a week ago. She has noted some improvement in her lip swelling. She denies any fevers chills or sweats. Denies any shortness of breath. Denies any chest pain. Denies a nausea or vomiting. Denies any bowel movement changes or urinary symptoms. Denies any vision changes. Denies any balance changes. She does admit to having headaches. She was admitted to the observation unit. Neurology service was consulted. Chest x -ray was negative EKG had shown normal sinus rhythm. White count was elevated at 16.6 but she has been on prednisone. There are concerns about a possible brainstem infarct therefore an MRI of the brain and EEG were also ordered by neurology. There is evidence of occipital neuritis and neurology had ordered pain service consult for epidural injection. Pain service not available until Friday due to the holiday. Patient has been on lisinopril for several years for her hypertension. This may be a contributing factor to patient's symptoms with possible angioedema. The lisinopril will be discontinued. Neurontin doses been decreased 100 mg 3 times a day. Review of Systems Please refer to HPI otherwise unremarkable Past Medical History Past Medical History: Cancer, GERD/Reflux, Hyperlipidemia, Hypertension, Osteoarthritis (OA), Pneumonia, Thyroid Disorder Additional Past Medical History / Comment(s): HX THYROID CA with surgery, HEART MURMUR, SPINAL STENOSIS, post op pneumonia, iron deficiency anemia. History of Any Multi-Drug Resistant Organisms: None Reported Past Surgical History: Appendectomy, Back Surgery, Bladder Surgery, Hysterectomy , Joint Replacement, Orthopedic Surgery Additional Past Surgical History / Comment(s): CERVICAL SURGERY. TOTAL LT KNEE AND RT HIP. , SAVANNA ROTATOR CUFF REPAIR, THYROIDECTOMY. EXC SAVANNA CATARACTS. Bladder suspension, EGDs with bx's/colonoscopy Past Anesthesia/Blood Transfusion Reactions: Motion Sickness, Postoperative Nausea & Vomiting (PONV) Additional Past Anesthesia/Blood Transfusion Reaction / Comment(s): DEVELOPED PNEUMONIA AFTER KNEE REPLACED. SOME NAUSEA PO, NO VOMITING. Past Psychological History: Anxiety, Depression Additional Psychological History / Comment(s): Pt states her 99 yr old mother lives with her. Pt is independent. She uses no assistive device. She drives. Smoking Status: Former smoker Past Alcohol Use History: Occasional Past Drug Use History: None Reported - Past Family History Father Family Medical History: Cancer Additional Family Medical History / Comment(s): Father had prostate cancer. He at the age of 92 yrs. Mother Family Medical History: No Reported History Additional Family Medical History / Comment(s): Mother is 99yrs old. She has eyesight problems. Medications and Allergies Home Medications Medication Instructions Recorded Confirmed Type HYDROcodone/APAP 7.5-325MG [[place] 1 tab PO Q6HR PRN 06/13/14 01/26/17 History 7.5-325] Lisinopril [Zestril] 5 mg PO HS 06/13/14 01/26/17 History Verapamil HCl [Verapamil ER] 240 mg PO QAM 06/13/14 01/26/17 History Aspirin 81 mg PO DAILY 02/21/16 01/26/17 History Atorvastatin [Lipitor] 40 mg PO DAILY 02/21/16 01/26/17 History ALPRAZolam [Xanax] 0.25 mg PO DAILY PRN 01/21/17 01/26/17 History Levothyroxine Sodium [Synthroid] 100 mcg PO DAILY 01/21/17 01/26/17 History Omeprazole [PriLOSEC] 20 mg PO DAILY 01/21/17 01/26/17 History valACYclovir HCL [Valtrex] 1,000 mg PO Q8H 01/21/17 01/26/17 History Gabapentin [Neurontin] 300 mg PO TID 01/26/17 01/26/17 History PARoxetine HCL [Paxil] 40 mg PO HS 01/26/17 01/26/17 History predniSONE See Taper PO DAILY 01/26/17 01/26/17 History Allergies Allergy/AdvReac Type Severity Reaction Status Date / Time Sulfa (Sulfonamide Allergy Unknown Verified 01/26/17 14:43 Antibiotics) Physical Exam Vitals: Vital Signs Temp Pulse Pulse Resp BP BP Pulse Ox 01/27/17 11:50 98.1 F 69 16 179/75 95 01/27/17 07:21 97.9 F 65 16 152/60 94 L 01/27/17 03:36 60 16 01/27/17 03:06 97.9 F 60 16 133/62 97 01/26/17 23:34 18 01/26/17 20:00 98 F 69 18 136/60 96 01/26/17 19:57 69 16 01/26/17 17:01 98.7 F 69 16 162/87 95 01/26/17 16:30 96 01/26/17 16:15 97.9 F 76 18 158/68 96 01/26/17 15:03 65 16 157/65 98 01/26/17 14:26 18 01/26/17 14:04 98.1 F 72 20 123/57 97 Intake and Output 01/26/17 01/27/17 01/27/17 22:59 06:59 14:59 Intake Total 1086 900 350 Balance 1086 900 350 Intake: Intake, IV Titration 300 600 Amount Sodium Chloride 0.9% 1, 300 600 000 ml @ 75 mls/hr IV . [id number] Rx#:[id number] Oral 786 300 350 Other: Voiding Method Toilet Toilet Toilet # Voids 2 3 Weight 74.1 kg HEENT no lip swelling or tongue swelling at this time. Head normocephalic Neck supple Lungs clear to auscultation bilaterally no wheezing or crackles Heart regular rate and rhythm S1-S2, no rub or gallop Abdomen is soft nontender nondistended positive bowel sounds no hepatosplenomegaly Extremities no edema Neuro alert and orientated to 3 Results CBC & Chem 7: 01/26/17 14:15 01/26/17 14:15 Labs: Abnormal Lab Results - Last 24 Hours (Table) 01/26/17 01/26/17 01/26/17 Range/Units 14:15 14:15 14:15 WBC 16.6 H (3.8-10.6) k/uL Neutrophils # 14.2 H (1.3-7.7) k/uL BUN 22 H (7-17) mg/dL Glucose 116 H (74-99) mg/dL POC Glucose (mg/dL) (75-99) mg/dL Total Creatine Kinase 29 L (30-135) U/L Ur Leukocyte Esterase (Negative) Hyaline Casts (0-2) /lpf Urine Mucus (None) /hpf 01/26/17 01/26/17 Range/Units 14:22 14:40 WBC (3.8-10.6) k/uL Neutrophils # (1.3-7.7) k/uL BUN (7-17) mg/dL Glucose (74-99) mg/dL POC Glucose (mg/dL) 118 H (75-99) mg/dL Total Creatine Kinase (30-135) U/L Ur Leukocyte Esterase Trace H (Negative) Hyaline Casts 4 H (0-2) /lpf Urine Mucus Rare H (None) /hpf Thrombosis Risk Factor Assmnt - DVT/VTE Prophylaxis DVT/VTE Prophylaxis: Pharmacologic Prophylaxis ordered - Choose All That Apply Each Factor Represents 1 point: Age 41-60 years, Obesity (BMI >25) Each Risk Factor Represents 3 Points: Age 75 years or older Thrombosis Risk Factor Assessment Total Risk Factor Score: 5 Thrombosis Risk Factor Assessment Level: High Risk Assessment and Plan Plan: 1. Lip and tongue swelling with burning sensation. Possibly an angioedema from CARSON inhibitor. The lisinopril will be discontinued. Continue to monitor. Neurology was consulted. MRI of the brain is ordered been ordered to rule out brainstem ischemia. Await EEG results. 2. Occipital neuritis: Pain service was consulted. Pain service is not available until Friday due to January 28 holiday 3. Tremor sensation on the inside of her body. Possibly related to the high dose of Neurontin was increased in the short time span. We'll taper down the Neurontin to 100 mg 3 times a day. Continue to monitor 4. Possible viral syndrome: Currently on prednisone, the dose of Neurontin was decreased, and Valtrex. Case discussed with neurology. Continue Valtrex until dosages complete. 5. History of essential hypertension: Blood pressures are slightly elevated plus the lisinopril will be discontinued. We will add the Norvasc 2.5 mg daily 6. Leukocytosis likely steroid related continue to monitor 7. Hyperlipidemia continue Lipitor. Check fasting lipid profile in the morning 8. History of thyroid cancer status post thyroidectomy. Continue the Synthroid. Thyroid levels within normal range 9. GI prophylaxis Protonix and DVT prophylaxis subcu heparin Time with Patient: Greater than 30 (Greater than 50% of the total time spent in counseling and coordination of care.I performed an examination of the patient and discussed their management with the physician Childcare Attendant. I have reviewed the Physician Childcare Attendant's notes and agree with the documented findings and plan of care)
--- NOTE | 2017-01-27 16:11 | MR ---
EXAMINATION TYPE: MR brain wo con DATE OF EXAM: 01/27/2017 COMPARISON: 08/24/2015 HISTORY: Perioral numbness, facial twitching T1-weighted sagittal, T2, FLAIR, and diffusion axial, and T2 coronal coronal views of the brain are s ubmitted. There is no evidence of acute ischemia. The ventricles, basal cisterns, and sulci overlying the conv exities are consistent with mild degenerative change. There are numerous areas of abnormal signal scattered throughout the white matter bilaterally. Findin gs are nonspecific. More focal area of abnormal signal within the right parietal lobe posteriorly is suggestive of an area of remote ischemia.. Craniocervical junction maintained. 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 No cerebellopontine angle mass. IMPRESSION: 1. No acute intracranial process. 2. Diffuse nonspecific white matter findings. Remote microvascular ischemia favored. 3. Area of encephalomalacia involving the right parietal lobe stable suggestive of remote ischemia.
--- NOTE | 2017-01-27 16:48 | P.PN ---
Subjective This patient is 76-year-old female who was admitted yesterday for evaluation of perioral numbness and burning sensation involving her lips and tongue area. Patient states symptoms have been progressing over 1 week. Patient was seen by her primary care physician Dr. Borrero who felt she had some form of a viral syndrome. She was started on a combination of Valtrex, prednisone, and Neurontin with very little improvement in her symptoms. She was recommended to undergo MRI of the brain for further evaluation. MRI is to be scheduled later today. Patient's medications have been adjusted as there may be some concern for medication effect producing these symptoms. Patient was also found to have evidence of possible occipital neuritis producing recurrent headaches for the last several months. She was recommended to undergo a occipital nerve block procedure through the anesthesia Department. The pain service is not available until Friday due to the holiday. She may have this seizure done as outpatient. Where waiting for the results of her MRI of the brain. She has been taking lisinopril for several years for treatment of her hypertension. It was felt this may be contributing to possible angioedema in the lip region. Her dose of Neurontin was also produced a lower dose of 100 mg 3 times a day. We will have to see if this adjustments makes improvement in her overall symptoms of burning sensation in the lips tongue and oral cavity. As noted we have recommended the MRI to rule out brainstem ischemia in this patient as well. Patient underwent MRI of the brain today. The MRI fails to reveal any evidence of acute stroke. Specifically no evidence of brainstem ischemia. Diffuse nonspecific white matter changes were noted. Remote area of encephalomalacia was noted in the right parietal lobe. Her neurological examination today is nonfocal. Patient is to schedule for occipital nerve block procedure in the outpatient setting. She may follow-up in the outpatient neurology clinic as needed. We will continue close neurological follow-up with the patient during this admission. Objective - Vital Signs Vital signs: Vital Signs Temp 98.1 F 01/27/17 11:50 Pulse 69 01/27/17 11:50 Resp 16 01/27/17 11:50 BP 179/75 01/27/17 11:50 Pulse Ox 95 01/27/17 11:50 Intake & Output 01/26/17 01/27/17 01/27/17 18:59 06:59 18:59 Intake Total 236 1750 350 Balance 236 1750 350 Weight 74.1 kg Intake: Intake, IV Titration 900 Amount Sodium Chloride 0.9% 1, 900 000 ml @ 75 mls/hr IV . [id number] ONE Rx#:[id number] Oral 236 850 350 Other: Voiding Method Toilet Toilet # Voids 3 - Exam Physical examination: PHYSICAL EXAMINATION: Patient is resting comfortably in bed. VITAL SIGNS: Blood pressure is [179/75]. Heart rate is [69]. Respiration is [16] . Temperature is [98.1]. HEENT: Head is atraumatic, neck is supple, there were no carotid bruits. CHEST: Lungs are clear to auscultation and percussion. CARDIAC: S1, S2 normal rate and rhythm. There is no murmur. ABDOMEN: Soft and nontender. Bowel sounds are present. EXTREMITIES: There is no pedal edema. Peripheral pulses are present. Neurological examination: Patient has a nonfocal neurological examination today. - Labs CBC & Chem 7: 01/26/17 14:15 01/26/17 14:15 Labs: Abnormal Lab Results - Last 24 Hours (Table) 01/26/17 01/26/17 01/26/17 Range/Units 14:15 14:15 14:15 WBC 16.6 H (3.8-10.6) k/uL Neutrophils # 14.2 H (1.3-7.7) k/uL BUN 22 H (7-17) mg/dL Glucose 116 H (74-99) mg/dL POC Glucose (mg/dL) (75-99) mg/dL Total Creatine Kinase 29 L (30-135) U/L Ur Leukocyte Esterase (Negative) Hyaline Casts (0-2) /lpf Urine Mucus (None) /hpf 01/26/17 01/26/17 Range/Units 14:22 14:40 WBC (3.8-10.6) k/uL Neutrophils # (1.3-7.7) k/uL BUN (7-17) mg/dL Glucose (74-99) mg/dL POC Glucose (mg/dL) 118 H (75-99) mg/dL Total Creatine Kinase (30-135) U/L Ur Leukocyte Esterase Trace H (Negative) Hyaline Casts 4 H (0-2) /lpf Urine Mucus Rare H (None) /hpf Assessment and Plan (1) Vertebrobasilar ischemia Status: Acute Code(s): G45.0 - VERTEBRO-BASILAR ARTERY SYNDROME (2) Occipital neuritis Status: Acute Code(s): M54.81 - OCCIPITAL NEURALGIA (3) Benign essential tremor Status: Acute Code(s): G25.0 - ESSENTIAL TREMOR (4) Viral syndrome Status: Acute Code(s): B34.9 - VIRAL INFECTION, UNSPECIFIED Plan: This patient is a 76-year-old female who was admitted to Hospital for symptoms of burning sensation involving the oral cavity lips and tongue area. Symptoms began over a week ago for which she had seen her primary care physician Dr. Borrero. She was told that she likely had a viral syndrome and was started on treatment with Valtrex, Neurontin, and prednisone. She has been taking these medications for over a week with only slight improvement. She was admitted to the hospital due to worsening symptoms and also symptoms of tremors. Patient describes these errors in her tremors which are not visible at all times. She feels very shaky and tremulous when ambulating. She denies any history of dizziness or vertigo at this time. Her neurological examination is nonfocal. Examination of the oral cavity fails to reveal any evidence of ulceration or cold sores. At this time we have recommended that she be evaluated for possibility of brainstem ischemia. We will obtain a MRI of the brain for further evaluation to rule out brainstem ischemia. She may continue on her current medications for treatment of viral syndrome. She does have evidence on examination today of bilateral occipital neuritis. We will obtain a anesthesia consultation for bilateral occipital nerve block procedure. Apparently this procedure cannot be done until Friday. This may be arranged for her in the outpatient setting. Patient was able to complete MRI of the brain today which was reviewed and is as noted above. There is no evidence for brain stem ischemia or brainstem stroke. Patient may be considered for discharge home tomorrow. At this time there is no evidence of viral syndrome at this time however she may complete her current course of therapy. She may follow-up in the outpatient neurology clinic as needed. We will continue close neurological follow-up of this patient during this admission. Her overall prognosis at this time remains guarded.
--- NOTE | 2017-01-27 17:43 | P.PCN ---
Date of Procedure: 01/27/17 Preoperative Diagnosis: This patient is a 76-year-old female being evaluated for burning sensation involving the lips and tongue and inner mouth area. Patient has been symptomatic for 2 weeks. Patient being considered for viral syndrome versus brainstem ischemia. Postoperative Diagnosis: Procedure(s) Performed: Routine EEG Implants: Indications for Procedure: This patient is a 76-year-old female being evaluated for perioral burning sensation and numbness also involving her tongue and inner oral cavity. Symptoms have been present for the past 2 weeks. Patient being evaluated for possible brainstem ischemia. Operative Findings: Description of Procedure: A routine 21 channel awake digital EEG recording was accomplished utilizing the 10-20 international system with bipolar and referential montages. the background activity in the most alert resting state consists of a low to medium amplitude fairly well-developed and well sustained 8 Hz activity over the posterior regions. This posterior rhythm attenuates to eye opening. There was a small amount of low amplitude 18-20 hertz beta activity seen maximally over the anterior head regions. Muscle and movement artifact was observed on a few occasions during the tracing. Hyperventilation was not performed. Photic stimulation at flash frequencies of 2-30 hertz produced a good symmetrical occipital driving response. No epileptiform discharges were seen. Impression: This EEG is within normal limits for the patient's age. The EEG failed to reveal any focal, lateralized, or epileptiform abnormalities. Clinical correlation is recommended. Amanda Henry M.D.
[2017-01-27] MEDS: GABAPENTIN 100 MG CAP PO SCH ×3 (17:47→21:49)
[2017-01-27] MEDS: amLODIPine 2.5 MG TAB PO SCH (17:50)
[2017-01-27] MEDS: PARoxetine 20 MG TAB PO SCH (21:04)
[2017-01-27] MEDS: HEPARIN SODIUM,PORCINE 5,000 UNIT/ML 1 ML VIAL SQ SCH (21:04)
[2017-01-27] MEDS: ZOLPIDEM 10 MG TAB PO PRN (21:49)
[2017-01-28 05:06] LABS: Basophils % (A) 0 %; CH 27.7; CHCM 32.5; Eosinophils # (A) 0.1 k/uL (0-0.7); Eosinophils % (A) 1 %; HCT 35.4 % (34.0-46.0); HDW 2.42; HGB 11.6 gm/dL (11.4-16.0); Luc # (Auto) 0.17; Luc % (Auto) 1; Lymphocytes # (A) 3.1 k/uL (1.0-4.8); Lymphocytes % (A) 23 %; MCHC 32.7 g/dL (31.0-37.0); MCV 85.7 fL (80.0-100.0); Mean Platelet Volume 7.3; Monocytes # (A) 0.7 k/uL (0-1.0); Monocytes % (A) 5 %; Neutrophils # (A) 9.3 k/uL (1.3-7.7); Neutrophils % (A) 70 %; RBC 4.13 m/uL (3.80-5.40); RDW 14.5 % (11.5-15.5); WBC 13.3 k/uL (3.8-10.6); WBC (Perox) 13.87
[2017-01-28 05:23] LABS: ALT 24 U/L (9-52); AST 11 U/L (14-36); Alkaline Phosphatase 78 U/L (38-126); Anion Gap 8 mmol/L; Blood Urea Nitrogen 17 mg/dL (7-17); Carbon Dioxide 30 mmol/L (22-30); Chloride 100 mmol/L (98-107); Cholesterol 156 mg/dL (<200); Glucose 102 mg/dL (74-99); HDL Cholesterol 80 mg/dL (40-60); Non-African American GFR(MDRD) >60 (>60 ml/min/1.73 sqM); Potassium 4.3 mmol/L (3.5-5.1); Sodium 138 mmol/L (137-145); Total Bilirubin 0.3 mg/dL (0.2-1.3); Total Protein 5.6 g/dL (6.3-8.2); Triglycerides 98 mg/dL (<150)
[2017-01-28] MEDS: LEVOTHYROXINE 100 MCG TAB PO SCH (05:59)
[2017-01-28] MEDS: PANTOPRAZOLE 40 MG TABLET PO SCH (05:59)
[2017-01-28] MEDS: HEPARIN SODIUM,PORCINE 5,000 UNIT/ML 1 ML VIAL SQ SCH ×2 (08:17→21:14)
[2017-01-28] MEDS: predniSONE 10 MG TAB PO SCH (08:19)
[2017-01-28] MEDS: ASPIRIN 81 MG CHEW PO SCH (08:19)
[2017-01-28] MEDS: GABAPENTIN 100 MG CAP PO SCH (08:19)
[2017-01-28] MEDS: ATORVASTATIN 40 MG TAB PO SCH (08:19)
[2017-01-28] MEDS: VERAPAMIL SR 240 MG TABLET.ER PO SCH (08:19)
[2017-01-28] MEDS: amLODIPine 2.5 MG TAB PO SCH (08:19)
[2017-01-28] MEDS ORDERED: ALPRAZolam 0.25 MG TAB PO PRN (13:58)
[2017-01-28] MEDS ORDERED: clonazePAM 0.5 MG TAB PO SCH (14:00)
--- NOTE | 2017-01-28 14:07 | P.PN ---
Subjective Principal diagnosis: Angioedema Patient is a 76-year-old female who presented to [facility] with swelling and burning sensation of both upper and lower lips and her tongue. Patient is maintained on lisinopril. Most likely diagnosis is angioedema lisinopril was discontinued yesterday As outpatient patient was maintained on oral steroids oral Valtrex and oral Neurontin Neurontin and prednisone are being weaned off Valtrex was discontinued Objective - Vital Signs Vital signs: Vital Signs Temp 97.5 F L 01/28/17 08:00 Pulse 76 01/28/17 13:48 Resp 18 01/28/17 08:00 BP 143/58 01/28/17 13:48 Pulse Ox 93 L 01/28/17 13:48 Intake & Output 01/27/17 01/28/17 01/28/17 18:59 06:59 18:59 Intake Total 350 800 900 Balance 350 800 900 Intake: Oral 350 800 900 Other: Voiding Method Toilet Toilet Toilet # Voids 2 - Exam In general patient is alert and oriented 3 in no apparent distress HEENT head normocephalic and atraumatic Neck is supple no JVD no goiter no lymphadenopathy Chest exam reveals a few scattered crackles in both bases no wheezing Cardiac exam reveals regular heart sounds no gallops no murmurs Abdomen is soft nontender no organomegaly with normal bowel sounds Extremity exam reveals no edema no cyanosis or clubbing - Labs CBC & Chem 7: 01/28/17 04:51 01/28/17 04:51 Labs: Abnormal Lab Results - Last 24 Hours (Table) 01/28/17 01/28/17 Range/Units 04:51 04:51 WBC 13.3 H (3.8-10.6) k/uL Neutrophils # 9.3 H (1.3-7.7) k/uL Glucose 102 H (74-99) mg/dL AST 11 L (14-36) U/L Total Protein 5.6 L (6.3-8.2) g/dL Albumin 3.3 L (3.5-5.0) g/dL HDL Cholesterol 80 H (40-60) mg/dL Assessment and Plan Plan: 1. Lip and tongue swelling with burning sensation. Possibly an angioedema from CARSON inhibitor. The lisinopril will be discontinued. Continue to monitor. Neurology was consulted. MRI of the brain is ordered been ordered to rule out brainstem ischemia. Await EEG results. 2. Occipital neuritis: Pain service was consulted. Pain service is not available until Friday due to January 28 holiday 3. Tremor sensation on the inside of her body. Possibly related to the high dose of Neurontin was increased in the short time span. We'll taper down the Neurontin to 100 mg 3 times a day. Continue to monitor 4. Possible viral syndrome: Currently on prednisone, the dose of Neurontin was decreased, and Valtrex. Case discussed with neurology. Continue Valtrex until dosages complete. 5. History of essential hypertension: Blood pressures are slightly elevated plus the lisinopril will be discontinued. We will add the Norvasc 2.5 mg daily 6. Leukocytosis likely steroid related continue to monitor 7. Hyperlipidemia continue Lipitor. Check fasting lipid profile in the morning 8. History of thyroid cancer status post thyroidectomy. Continue the Synthroid. Thyroid levels within normal range
--- NOTE | 2017-01-28 17:52 | P.PN ---
Subjective This patient is 76-year-old female who was admitted yesterday for evaluation of perioral numbness and burning sensation involving her lips and tongue area. Patient states symptoms have been progressing over 1 week. Patient was seen by her primary care physician Dr. Borrero who felt she had some form of a viral syndrome. She was started on a combination of Valtrex, prednisone, and Neurontin with very little improvement in her symptoms. She was recommended to undergo MRI of the brain for further evaluation. MRI is to be scheduled later today. Patient's medications have been adjusted as there may be some concern for medication effect producing these symptoms. Patient was also found to have evidence of possible occipital neuritis producing recurrent headaches for the last several months. She was recommended to undergo a occipital nerve block procedure through the anesthesia Department. The pain service is not available until Friday due to the holiday. She may have this seizure done as outpatient. Where waiting for the results of her MRI of the brain. She has been taking lisinopril for several years for treatment of her hypertension. It was felt this may be contributing to possible angioedema in the lip region. Her dose of Neurontin was also produced a lower dose of 100 mg 3 times a day. We will have to see if this adjustments makes improvement in her overall symptoms of burning sensation in the lips tongue and oral cavity. As noted we have recommended the MRI to rule out brainstem ischemia in this patient as well. Patient underwent MRI of the brain today. The MRI fails to reveal any evidence of acute stroke. Specifically no evidence of brainstem ischemia. Diffuse nonspecific white matter changes were noted. Remote area of encephalomalacia was noted in the right parietal lobe. Her neurological examination today is nonfocal. Patient is to schedule for occipital nerve block procedure in the outpatient setting. She may be considered for discharge home tomorrow. She may undergo nerve block procedure if she is still wishing to proceed while an inpatient. Patient states she had been feeling better this morning but again this afternoon is noted recurrence of numbness of the tongue. She also feels her lips are somewhat swollen. We reviewed all of her test results with the patient once again today in detail. She may follow-up in the outpatient neurology clinic as needed. We will continue close neurological follow-up with the patient during this admission. We will await further recommendations from Dr. Ho regarding discharge plan for tomorrow. Objective - Vital Signs Vital signs: Vital Signs Temp 98.4 F 01/28/17 16:00 Pulse 71 01/28/17 16:00 Resp 18 01/28/17 16:00 BP 138/63 01/28/17 16:00 Pulse Ox 96 01/28/17 16:00 Intake & Output 01/27/17 01/28/17 01/28/17 18:59 06:59 18:59 Intake Total 350 800 900 Balance 350 800 900 Intake: Oral 350 800 900 Other: Voiding Method Toilet Toilet Toilet # Voids 2 - Exam Physical examination: PHYSICAL EXAMINATION: Patient is resting comfortably in bed. VITAL SIGNS: Blood pressure is [179/75]. Heart rate is [69]. Respiration is [16] . Temperature is [98.1]. HEENT: Head is atraumatic, neck is supple, there were no carotid bruits. CHEST: Lungs are clear to auscultation and percussion. CARDIAC: S1, S2 normal rate and rhythm. There is no murmur. ABDOMEN: Soft and nontender. Bowel sounds are present. EXTREMITIES: There is no pedal edema. Peripheral pulses are present. Neurological examination: Patient has a nonfocal neurological examination today. - Labs CBC & Chem 7: 01/28/17 04:51 01/28/17 04:51 Labs: Abnormal Lab Results - Last 24 Hours (Table) 01/28/17 01/28/17 Range/Units 04:51 04:51 WBC 13.3 H (3.8-10.6) k/uL Neutrophils # 9.3 H (1.3-7.7) k/uL Glucose 102 H (74-99) mg/dL AST 11 L (14-36) U/L Total Protein 5.6 L (6.3-8.2) g/dL Albumin 3.3 L (3.5-5.0) g/dL HDL Cholesterol 80 H (40-60) mg/dL Assessment and Plan (1) Vertebrobasilar ischemia Status: Acute Code(s): G45.0 - VERTEBRO-BASILAR ARTERY SYNDROME (2) Occipital neuritis Status: Acute Code(s): M54.81 - OCCIPITAL NEURALGIA (3) Benign essential tremor Status: Acute Code(s): G25.0 - ESSENTIAL TREMOR (4) Viral syndrome Status: Acute Code(s): B34.9 - VIRAL INFECTION, UNSPECIFIED
[2017-01-28] MEDS: HYDROcodone/APAP 7.5-325MG 1 EACH TAB PO PRN (21:09)
[2017-01-28] MEDS: PARoxetine 20 MG TAB PO SCH (21:10)
[2017-01-28] MEDS: ZOLPIDEM 10 MG TAB PO PRN (21:10)
[2017-01-29 06:22] LABS: Basophils % (A) 0 %; CH 27.9; Eosinophils # (A) 0.1 k/uL (0-0.7); Eosinophils % (A) 1 %; HCT 33.6 % (34.0-46.0); HDW 2.39; HGB 11.4 gm/dL (11.4-16.0); Luc % (Auto) 1; Lymphocytes # (A) 3.2 k/uL (1.0-4.8); Lymphocytes % (A) 22 %; MCH 28.7 pg (25.0-35.0); MCHC 33.8 g/dL (31.0-37.0); Mean Platelet Volume 7.1; Monocytes # (A) 0.9 k/uL (0-1.0); Monocytes % (A) 6 %; Neutrophils # (A) 10.6 k/uL (1.3-7.7); Neutrophils % (A) 71 %; RBC 3.95 m/uL (3.80-5.40); RDW 14.6 % (11.5-15.5)
[2017-01-29 06:31] LABS: ALT 17 U/L (9-52); AST 12 U/L (14-36); Alkaline Phosphatase 77 U/L (38-126); Anion Gap 8 mmol/L; Blood Urea Nitrogen 21 mg/dL (7-17); Calcium 8.8 mg/dL (8.4-10.2); Carbon Dioxide 30 mmol/L (22-30); Chloride 99 mmol/L (98-107); Glucose 96 mg/dL (74-99); Non-African American GFR(MDRD) >60 (>60 ml/min/1.73 sqM); Sodium 137 mmol/L (137-145); Total Bilirubin 0.5 mg/dL (0.2-1.3)
[2017-01-29] MEDS: ASPIRIN 81 MG CHEW PO SCH (08:08)
[2017-01-29] MEDS: ATORVASTATIN 40 MG TAB PO SCH (08:08)
[2017-01-29] MEDS: PANTOPRAZOLE 40 MG TABLET PO SCH (08:08)
[2017-01-29] MEDS: VERAPAMIL SR 180 MG TABLET.ER PO SCH (08:08)
[2017-01-29] MEDS: LEVOTHYROXINE 100 MCG TAB PO SCH (08:08)
[2017-01-29] MEDS: HEPARIN SODIUM,PORCINE 5,000 UNIT/ML 1 ML VIAL SQ SCH ×2 (08:10→20:38)
[2017-01-29] MEDS ORDERED: predniSONE 10 MG TAB PO SCH (09:00)
--- NOTE | 2017-01-29 10:46 | P.CON ---
Consult Note - . Consult date: 01/29/17 Assessment/Plan:: Patient seen and examined, chart reviewed including medical/surgical/social/ family histories and allergies. Ms. King is a 76-year-old female who presented to the hospital with facial twitching, oral numbness, and other neurologic facial symptoms. Medical and neurology services are working up this condition to determine cause, including MRI studies and EEG. Patient has also had headaches for many years and is complaining of pain in her neck and the back of her head. Neurology service recommended consultation for occipital nerve block. Upon examination, patient does have tenderness over the occipital ridges bilaterally and would likely benefit from ONB. That said, she wishes to defer procedures at this time until the acute neurologic issues resolve. I requested nursing staff to give contact information for the pain clinic and she will be seen as an outpatient for further evaluation if she wishes. Thank you very much for this consultation; please call back with any further questions.
[2017-01-29] MEDS: HYDROcodone/APAP 7.5-325MG 1 EACH TAB PO PRN (12:03)
[2017-01-29] MEDS: ALPRAZolam 0.25 MG TAB PO SCH ×2 (15:29→20:38)
--- NOTE | 2017-01-29 17:06 | P.PN ---
Subjective Principal diagnosis: Angioedema Patient is a 76-year-old female who presented to [facility] with swelling and burning sensation of both upper and lower lips and her tongue. Patient is maintained on lisinopril. Most likely diagnosis is angioedema lisinopril was discontinued yesterday As outpatient patient was maintained on oral steroids oral Valtrex and oral Neurontin Neurontin and prednisone are being weaned off Valtrex was discontinued Objective - Vital Signs Vital signs: Vital Signs Temp 98.1 F 01/29/17 15:31 Pulse 67 01/29/17 15:31 Resp 17 01/29/17 15:31 BP 127/70 01/29/17 15:31 Pulse Ox 92 L 01/29/17 15:31 Intake & Output 01/28/17 01/29/17 01/29/17 18:59 06:59 18:59 Intake Total 1140 476 Balance 1140 476 Weight 74.1 kg Intake: Oral 1140 476 Other: Voiding Method Toilet Toilet Toilet # Voids 2 - Exam In general patient is alert and oriented 3 in no apparent distress HEENT head normocephalic and atraumatic Neck is supple no JVD no goiter no lymphadenopathy Chest exam reveals a few scattered crackles in both bases no wheezing Cardiac exam reveals regular heart sounds no gallops no murmurs Abdomen is soft nontender no organomegaly with normal bowel sounds Extremity exam reveals no edema no cyanosis or clubbing - Labs CBC & Chem 7: 01/29/17 05:50 01/29/17 05:50 Labs: Abnormal Lab Results - Last 24 Hours (Table) 01/29/17 01/29/17 Range/Units 05:50 05:50 WBC 15.0 H (3.8-10.6) k/uL Hct 33.6 L (34.0-46.0) % Neutrophils # 10.6 H (1.3-7.7) k/uL BUN 21 H (7-17) mg/dL AST 12 L (14-36) U/L Total Protein 6.0 L (6.3-8.2) g/dL Albumin 3.4 L (3.5-5.0) g/dL Assessment and Plan Plan: 1. Lip and tongue swelling with burning sensation. Possibly an angioedema from CARSON inhibitor. The lisinopril will be discontinued. Continue to monitor. Neurology was consulted. MRI of the brain is ordered been ordered to rule out brainstem ischemia. Await EEG results. 2. Occipital neuritis: Pain service was consulted. Pain service is not available until Friday due to January 28 holiday 3. Tremor sensation on the inside of her body. Possibly related to the high dose of Neurontin was increased in the short time span. We'll taper down the Neurontin to 100 mg 3 times a day. Continue to monitor 4. Possible viral syndrome: Currently on prednisone, the dose of Neurontin was decreased, and Valtrex. Case discussed with neurology. Completed course of Valtrex. Still having significant symptoms patient is convinced that she has an infection, I have discussed case with patient in length today at this time will consult infectious disease. 5. History of essential hypertension: Blood pressures are slightly elevated plus the lisinopril will be discontinued. We will add the Norvasc 2.5 mg daily 6. Leukocytosis likely steroid related continue to monitor 7. Hyperlipidemia continue Lipitor. Check fasting lipid profile in the morning 8. History of thyroid cancer status post thyroidectomy. Continue the Synthroid. Thyroid levels within normal range
[2017-01-29] MEDS: HYDROmorphone 1 MG/ML 1 ML SYRINGE IVP PRN ×2 (17:53→22:10)
[2017-01-29] MEDS: PARoxetine 20 MG TAB PO SCH (20:38)
[2017-01-29 21:01] VITALS: RESP 18
[2017-01-29] MEDS: ZOLPIDEM 10 MG TAB PO PRN (22:10)
--- NOTE | 2017-01-29 22:45 | P.CONS ---
History of Present Illness - Reason for Consult Consult date: 01/29/17 - Chief Complaint Tingling oral cavity - History of Present Illness 76 year old female who is relatively healthy relates that she's been having difficulties for over a week. She woke with some numbness tingling to her tongue as well as to the lower lip area. She related that it felt like her tongue was thick and intubated for her mouth. She fortunately had no difficulty with her speech. She had difficulty with chewing or swallowing. She no difficulty with keeping food or drink within her oral cavity when she was eating. She no difficulty with phonation or swallowing. She had no difficulty with weakness to the tongue or oral cavity. She had no droop to either side of her face. But has had some difficulties with headaches which are not unusual but worse than usual. She was quite anxious. She was seen by her primary care physician Dr. Perdomo. There is concerns as a viral event specifically varicella-zoster. She was placed on Valtrex and steroids. After several days she did not improve and apparently doses were increased. She continued to have worsening over the next several days. Because she had increasing burning sensation to the lower lip and the tongue and the ongoing symptoms she presented to the emergency center. She was admitted because there was concerns that she was complaining of feeling tremors also. Neurology consultation was requested and has been completed. She has had headaches and there was consult for occipital nerve block but she has refused at this time. ID consult was requested for evaluation of potential viral infection. Patient distinctly denies fevers, chills or rigors. The symptoms are limited to the lower lip and oral cavity. Especially the tongue. She still has some tingling numbness and feeling of a thick tongue. Review of Systems HEENT:Denies acute visual change. Denies sinus or mouth discomforts. Denies neck stiffness or pain. Denies significant oral cavity pain. Denies difficulty on swallowing. Lungs: Denies significant shortness of breath, cough, sputum production, or hemoptysis. Cardiovascular: Denies significant shortness of breath, chest pain, chest wall pain, orthopnea, dyspnea on exertion, syncope Gastrointestinal:Denies nausea, vomiting, diarrhea, constipation, hematemesis, melena, hematochezia. No no significant change of bowel habit noticed. Musculoskeletal: denies significant myalgias or arthralgias. No new joint swelling. Denies new back pain. Skin: Denies new rash or lesions. No new ulcers or wounds are related.. Neuro: As per the HPI Psychiatric:Denies anxiety or depression. Endocrine: Denies significant fatigue, denies significant weight loss or weight gain. Past Medical History Past Medical History: Cancer, GERD/Reflux, Hyperlipidemia, Hypertension, Osteoarthritis (OA), Pneumonia, Thyroid Disorder Additional Past Medical History / Comment(s): HX THYROID CA with surgery, HEART MURMUR, SPINAL STENOSIS, post op pneumonia, iron deficiency anemia. History of Any Multi-Drug Resistant Organisms: None Reported Past Surgical History: Appendectomy, Back Surgery, Bladder Surgery, Hysterectomy , Joint Replacement, Orthopedic Surgery Additional Past Surgical History / Comment(s): CERVICAL SURGERY. TOTAL LT KNEE AND RT HIP. , SAVANNA ROTATOR CUFF REPAIR, THYROIDECTOMY. EXC SAVANNA CATARACTS. Bladder suspension, EGDs with bx's/colonoscopy Past Anesthesia/Blood Transfusion Reactions: Motion Sickness, Postoperative Nausea & Vomiting (PONV) Additional Past Anesthesia/Blood Transfusion Reaction / Comm: DEVELOPED PNEUMONIA AFTER KNEE REPLACED. SOME NAUSEA PO, NO VOMITING. Past Psychological History: Anxiety, Depression Additional Psychological History / Comment(s): Pt states her 99 yr old mother lives with her. Pt is independent. She uses no assistive device. 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 No international travel. Goes to [place] to visit her children. No ill contacts Smoking Status: Former smoker Past Alcohol Use History: Occasional Past Drug Use History: None Reported - Past Family History Father Family Medical History: Cancer Additional Family Medical History / Comment(s): Father had prostate cancer. He at the age of 92 yrs. Mother Family Medical History: No Reported History Additional Family Medical History / Comment(s): Mother is 99yrs old. She has eyesight problems. Medications and Allergies Home Medications and Allergies Comment(s): Current Medications Hydrocodone Bitart/Acetaminophen ([place] 7.5-325) 1 each PO Q6HR PRN PRN Reason: Pain Last Admin: 01/29/17 12:03 Dose: 1 each Alprazolam (Xanax) 0.25 mg PO TID [facility] Last Admin: 01/29/17 20:38 Dose: 0.25 mg Aspirin (Aspirin) 81 mg PO DAILY [facility] Last Admin: 01/29/17 08:08 Dose: 81 mg Atorvastatin Calcium (Lipitor) 40 mg PO DAILY [facility] Last Admin: 01/29/17 08:08 Dose: 40 mg Heparin Sodium (Porcine) (Heparin) 5,000 unit SQ Q12HR [facility] Last Admin: 01/29/17 20:38 Dose: 5,000 unit Hydromorphone HCl (Dilaudid) 0.5 mg IVP Q4HR PRN PRN Reason: Pain Last Admin: 01/29/17 22:10 Dose: 0.5 mg Levothyroxine Sodium (Synthroid) 100 mcg PO DAILY@0630 [facility] Last Admin: 01/29/17 08:08 Dose: 100 mcg Pantoprazole Sodium (Protonix) 40 mg PO AC-BRKFST [facility] Last Admin: 01/29/17 08:08 Dose: 40 mg Paroxetine HCl (Paxil) 40 mg PO HS [facility] Last Admin: 01/29/17 20:38 Dose: 40 mg Verapamil HCl (Isoptin Sr) 360 mg PO DAILY [facility] Last Admin: 01/29/17 08:08 Dose: 360 mg Zolpidem Tartrate (Ambien) 10 mg PO HS PRN PRN Reason: Insomnia Last Admin: 01/29/17 22:10 Dose: 10 mg Home Medications Medication Instructions Recorded Confirmed Type HYDROcodone/APAP 7.5-325MG [[place] 1 tab PO Q6HR PRN 06/13/14 01/26/17 History 7.5-325] Lisinopril [Zestril] 5 mg PO HS 06/13/14 01/26/17 History Verapamil HCl [Verapamil ER] 240 mg PO QAM 06/13/14 01/26/17 History Aspirin 81 mg PO DAILY 02/21/16 01/26/17 History Atorvastatin [Lipitor] 40 mg PO DAILY 02/21/16 01/26/17 History ALPRAZolam [Xanax] 0.25 mg PO DAILY PRN 01/21/17 01/26/17 History Levothyroxine Sodium [Synthroid] 100 mcg PO DAILY 01/21/17 01/26/17 History Omeprazole [PriLOSEC] 20 mg PO DAILY 01/21/17 01/26/17 History valACYclovir HCL [Valtrex] 1,000 mg PO Q8H 01/21/17 01/26/17 History Gabapentin [Neurontin] 300 mg PO TID 01/26/17 01/26/17 History PARoxetine HCL [Paxil] 40 mg PO HS 01/26/17 01/26/17 History predniSONE See Taper PO DAILY 01/26/17 01/26/17 History Allergies Allergy/AdvReac Type Severity Reaction Status Date / Time Sulfa (Sulfonamide Allergy Unknown Verified 01/26/17 14:43 Antibiotics) Physical Exam Vitals: Vital Signs Temp Pulse Resp BP Pulse Ox 01/29/17 20:00 97.9 F 59 L 18 128/66 97 01/29/17 15:31 98.1 F 67 17 127/70 92 L 01/29/17 08:00 97.6 F 88 18 135/85 95 01/29/17 04:00 16 01/29/17 00:00 70 16 Intake and Output 01/29/17 01/29/17 01/29/17 06:59 14:59 22:59 Intake Total 476 520 Balance 476 520 Intake: Oral 476 520 Other: Voiding Method Toilet Toilet Toilet # Voids 2 Weight 74.1 kg HEENT: Anicteric conjunctiva are pink and moist nasal mucosa grossly intact without significant lesions, there is no thrush. Neck: The neck is supple without significant lymphadenopathy or thyromegaly. Lungs: Good bilateral air entry without significant crackles or wheezing. There is no significant bronchial sounds. There is no egophony or dullness. Heart: Regular rate and rhythm with an audible S1-S2, no S3 no S4. There is no significant murmur click or rub, PMI was nondisplaced. Abdomen: Positive bowel sounds soft and nontender without palpable masses or organomegaly. There was no guarding or rebound. Extremities: The upper extremities have excellent pulses they are symmetric, no significant petechiae or telangiectasia. No splinter hemorrhages were noted. The lower extremities are free from significant edema. The peripheral pulses were 2+ and symmetric. Neuro: Awake alert oriented to person place and time. There are no acute new gross focal sensory motor deficits. There is no facial droop. The tongue is midline. The tongue has full range of motion. There are no fasciculations to the tongue. Phonation is complete and clear. No difficulty swallowing liquids. No evidence of any lesions within the oral cavity. No evidence of the lesions on the lips. Facial musculature is strong and symmetric Results CBC & Chem 7: 01/29/17 05:50 01/29/17 05:50 Labs: Abnormal Lab Results - Last 24 Hours (Table) 01/29/17 01/29/17 Range/Units 05:50 05:50 WBC 15.0 H (3.8-10.6) k/uL Hct 33.6 L (34.0-46.0) % Neutrophils # 10.6 H (1.3-7.7) k/uL BUN 21 H (7-17) mg/dL AST 12 L (14-36) U/L Total Protein 6.0 L (6.3-8.2) g/dL Albumin 3.4 L (3.5-5.0) g/dL Laboratory Results WBC 15.0 k/uL (3.8-10.6) H 01/29/17 05:50 RBC 3.95 m/uL (3.80-5.40) 01/29/17 05:50 Hgb 11.4 gm/dL (11.4-16.0) 01/29/17 05:50 Hct 33.6 % (34.0-46.0) L 01/29/17 05:50 MCV 85.0 fL (80.0-100.0) 01/29/17 05:50 MCH 28.7 pg (25.0-35.0) 01/29/17 05:50 MCHC 33.8 g/dL (31.0-37.0) 01/29/17 05:50 RDW 14.6 % (11.5-15.5) 01/29/17 05:50 Plt Count 289 k/uL (150-450) 01/29/17 05:50 Neutrophils % 71 % 01/29/17 05:50 Lymphocytes % 22 % 01/29/17 05:50 Monocytes % 6 % 01/29/17 05:50 Eosinophils % 1 % 01/29/17 05:50 Basophils % 0 % 01/29/17 05:50 Neutrophils # 10.6 k/uL (1.3-7.7) H 01/29/17 05:50 Lymphocytes # 3.2 k/uL (1.0-4.8) 01/29/17 05:50 Monocytes # 0.9 k/uL (0-1.0) 01/29/17 05:50 Eosinophils # 0.1 k/uL (0-0.7) 01/29/17 05:50 Basophils # 0.0 k/uL (0-0.2) 01/29/17 05:50 PT 9.5 sec (9.0-12.0) 01/26/17 14:15 INR 0.9 (<1.1) 01/26/17 14:15 APTT 22.1 sec (22.0-30.0) 01/26/17 14:15 D-Dimer 0.24 mg/L FEU (<0.60) 01/26/17 14:15 Sodium 137 mmol/L (137-145) 01/29/17 05:50 Potassium 4.0 mmol/L (3.5-5.1) 01/29/17 05:50 Chloride 99 mmol/L (98-107) 01/29/17 05:50 Carbon Dioxide 30 mmol/L (22-30) 01/29/17 05:50 Anion Gap 8 mmol/L 01/29/17 05:50 BUN 21 mg/dL (7-17) H 01/29/17 05:50 Creatinine 0.76 mg/dL (0.52-1.04) 01/29/17 05:50 Est GFR (MDRD) Af Amer >60 (>60 ml/min/1.73 sqM) 01/29/17 05:50 Est GFR (MDRD) Non-Af >60 (>60 ml/min/1.73 sqM) 01/29/17 05:50 Glucose 96 mg/dL (74-99) 01/29/17 05:50 POC Glucose (mg/dL) 118 mg/dL (75-99) H 01/26/17 14:22 POC Glu Classifying Machine Operator ID Emily Jacques 01/26/17 14:22 Calcium 8.8 mg/dL (8.4-10.2) 01/29/17 05:50 Magnesium 2.1 mg/dL (1.6-2.3) 01/26/17 14:15 Total Bilirubin 0.5 mg/dL (0.2-1.3) 01/29/17 05:50 AST 12 U/L (14-36) L 01/29/17 05:50 ALT 17 U/L (9-52) 01/29/17 05:50 Alkaline Phosphatase 77 U/L (38-126) 01/29/17 05:50 Total Creatine Kinase 29 U/L (30-135) L 01/26/17 14:15 CK-MB (CK-2) 0.3 ng/mL (0.0-2.4) 01/26/17 14:15 CK-MB (CK-2) Rel Index 1.0 01/26/17 14:15 Troponin I <0.012 ng/mL (0.000-0.034) 01/26/17 14:15 Total Protein 6.0 g/dL (6.3-8.2) L 01/29/17 05:50 Albumin 3.4 g/dL (3.5-5.0) L 01/29/17 05:50 Triglycerides 98 mg/dL (<150) 01/28/17 04:51 Cholesterol 156 mg/dL (<200) 01/28/17 04:51 LDL Cholesterol, Calc 56 mg/dL (0-99) 01/28/17 04:51 HDL Cholesterol 80 mg/dL (40-60) H 01/28/17 04:51 TSH 0.910 mIU/L (0.465-4.680) 01/26/17 14:15 Free T4 1.10 ng/dL (0.78-2.19) 01/26/17 14:15 Urine Color Yellow 01/26/17 14:40 Urine Appearance Clear (Clear) 01/26/17 14:40 Urine pH 6.0 (5.0-8.0) 01/26/17 14:40 Ur Specific [place] 1.013 (1.001-1.035) 01/26/17 14:40 Urine Protein Negative (Negative) 01/26/17 14:40 Urine Glucose (UA) Negative (Negative) 01/26/17 14:40 Urine Ketones Negative (Negative) 01/26/17 14:40 Urine Blood Negative (Negative) 01/26/17 14:40 Urine Nitrite Negative (Negative) 01/26/17 14:40 Urine Bilirubin Negative (Negative) 01/26/17 14:40 Urine Urobilinogen <2.0 mg/dL (<2.0) 01/26/17 14:40 Ur Leukocyte Esterase Trace (Negative) H 01/26/17 14:40 Urine RBC <1 /hpf (0-5) 01/26/17 14:40 Urine WBC <1 /hpf (0-5) 01/26/17 14:40 Ur Squamous Epith Cells <1 /hpf (0-4) 01/26/17 14:40 Hyaline Casts 4 /lpf (0-2) H 01/26/17 14:40 Urine Mucus Rare /hpf (None) H 01/26/17 14:40 Assessment and Plan (1) Cervico-occipital neuralgia Status: Acute (2) Numbness around mouth Narrative/Plan: 76-year-old woman presents to hospital with a several-day history of difficulties with her mouth and tongue. Developing tingling discomfort and sensations of thickened tongue. She had concerns and was seen by her primary care physician. Is treated with Valtrex as well as steroids. Etiology of this syndrome is not clear. Potential viral infection is of concern. HSV-1, HSV-2 and varicella antibodies will be obtained. Nish-Pitts and CMV will also be evaluated. It is potential that the symptoms have been worsened by the steroid therapy. This should be discontinued. She's had 7 days of Valtrex that should also be completed. Patient has been seen by neurology. She has had MRI performed. No evidence of any stroke or malignancy. Should be ready for discharge to home with follow-up in the outpatient setting. The leukocytosis is related to the steroid therapy. In is related concern that some of the symptoms she is having are directly related to the steroid therapy. Status: Acute
[2017-01-30] MEDS: HYDROcodone/APAP 7.5-325MG 1 EACH TAB PO PRN ×2 (02:55→08:40)
[2017-01-30] MEDS: HYDROmorphone 1 MG/ML 1 ML SYRINGE IVP PRN (04:01)
[2017-01-30] MEDS: LEVOTHYROXINE 100 MCG TAB PO SCH (06:37)
[2017-01-30 06:52] LABS: Basophils # (A) 0.1 k/uL (0-0.2); Basophils % (A) 0 %; CH 27.8; CHCM 32.2; Eosinophils # (A) 0.2 k/uL (0-0.7); Eosinophils % (A) 1 %; HCT 38.2 % (34.0-46.0); HDW 2.39; HGB 12.7 gm/dL (11.4-16.0); Luc # (Auto) 0.17; Luc % (Auto) 1; Lymphocytes # (A) 3.7 k/uL (1.0-4.8); Lymphocytes % (A) 24 %; MCH 28.7 pg (25.0-35.0); MCHC 33.2 g/dL (31.0-37.0); MCV 86.7 fL (80.0-100.0); Mean Platelet Volume 7.2; Monocytes # (A) 0.8 k/uL (0-1.0); Monocytes % (A) 5 %; Neutrophils # (A) 10.4 k/uL (1.3-7.7); Neutrophils % (A) 68 %; RBC 4.41 m/uL (3.80-5.40); RDW 14.7 % (11.5-15.5); WBC 15.3 k/uL (3.8-10.6); WBC (Perox) 15.56
[2017-01-30 07:07] LABS: ALT 16 U/L (9-52); AST 12 U/L (14-36); Alkaline Phosphatase 80 U/L (38-126); Anion Gap 7 mmol/L; Blood Urea Nitrogen 21 mg/dL (7-17); Calcium 9.1 mg/dL (8.4-10.2); Carbon Dioxide 36 mmol/L (22-30); Chloride 94 mmol/L (98-107); Glucose 92 mg/dL (74-99); Non-African American GFR(MDRD) 57 (>60 ml/min/1.73 sqM); Potassium 4.6 mmol/L (3.5-5.1); Sodium 137 mmol/L (137-145); Total Bilirubin 0.5 mg/dL (0.2-1.3); Total Protein 6.3 g/dL (6.3-8.2)
[2017-01-30 08:01] VITALS: BP 127/65; PULSE 62; TEMP 97.7
[2017-01-30] MEDS: ALPRAZolam 0.25 MG TAB PO SCH (08:32)
[2017-01-30] MEDS: PANTOPRAZOLE 40 MG TABLET PO SCH (08:32)
[2017-01-30] MEDS: HEPARIN SODIUM,PORCINE 5,000 UNIT/ML 1 ML VIAL SQ SCH (08:32)
[2017-01-30] MEDS: VERAPAMIL SR 180 MG TABLET.ER PO SCH (08:32)
[2017-01-30] MEDS: ATORVASTATIN 40 MG TAB PO SCH (08:32)
[2017-01-30] MEDS: ASPIRIN 81 MG CHEW PO SCH (08:35)
--- NOTE | 2017-01-30 10:06 | P.DS ---
Providers Date of admission: 01/30/17 08:25 Expected date of discharge: 01/30/17 Attending physician: Emily Ho Consults: 01/26/17 16:25 Consult Physician Urgent Consulting Provider: Danisha Henry Consult Reason/Comments: Facial twitching, tremors Do you want consulting provider notified?: Yes 01/27/17 08:00 Consult Anesthesia Routine Consulting Provider: Anesthesia,Services Consult Reason/Comments: Bilateral occipital nerve blocks. 01/29/17 13:53 Consult Physician Routine Consulting Provider: Juanito Mirza Consult Reason/Comments: feeling of tongue sweeling Do you want consulting provider notified?: Yes Primary care physician: Juana Borrero [facility] Course: Discharge diagnosis 1. Lip and tongue swelling with burning sensation. Possibly an angioedema from CARSON inhibitor. The lisinopril will be discontinued. Continue to monitor. Neurology was consulted. MRI of the brain is ordered been ordered to rule out brainstem ischemia. Await EEG results. 2. Occipital neuritis: Pain service was consulted. Pain service is not available until Friday due to January 28 holiday 3. Tremor sensation on the inside of her body. Possibly related to the high dose of Neurontin was increased in the short time span. We'll taper down the Neurontin to 100 mg 3 times a day. Continue to monitor 4. Possible viral syndrome: Currently on prednisone, the dose of Neurontin was decreased, and Valtrex. Case discussed with neurology. Completed course of Valtrex. Still having significant symptoms patient is convinced that she has an infection, I have discussed case with patient in length today at this time will consult infectious disease. 5. History of essential hypertension: Blood pressures are slightly elevated plus the lisinopril will be discontinued. We will add the Norvasc 2.5 mg daily 6. Leukocytosis likely steroid related continue to monitor 7. Hyperlipidemia continue Lipitor. 8. History of thyroid cancer status post thyroidectomy. Continue the Synthroid. Thyroid levels within normal range 9. Headache 10. Generalized anxiety disorder Hospital course This is a 76-year-old female, patient of Dr. Perdomo. She has known past medical history of hypertension, hyperlipidemia, and thyroid cancer with thyroidectomy. Patient presents to the emergency room with complaints of upper and lower lip swelling with burning sensation also some tongue swelling and discomfort of her mouth. She initially was seen by her primary care physician and was thought of had a viral syndrome was started on prednisone, Valtrex and Neurontin. Patient reports she was taken his medication symptoms worsened she went back to see Dr. Perdomo and the Neurontin dose was increased to 300 mg 3 times a day. Patient reports also having kind of a jittery sensation in her belly and throughout her body. Since symptoms were not improving she came into the emergency room for further evaluation and treatment. She reports the initial symptoms had started about a week ago. She has noted some improvement in her lip swelling. She denies any fevers chills or sweats. Denies any shortness of breath. Denies any chest pain. Denies a nausea or vomiting. Denies any bowel movement changes or urinary symptoms. Denies any vision changes. Denies any balance changes. She does admit to having headaches. She was admitted to the observation unit. Neurology service was consulted. Chest x -ray was negative EKG had shown normal sinus rhythm. White count was elevated at 16.6 but she has been on prednisone. There are concerns about a possible brainstem infarct therefore an MRI of the brain and EEG were also ordered by neurology. There is evidence of occipital neuritis and neurology had ordered pain service consult for epidural injection. Pain service not available until Friday due to the holiday. Patient has been on lisinopril for several years for her hypertension. This may be a contributing factor to patient's symptoms with possible angioedema. The lisinopril will be discontinued. Neurontin doses been decreased 100 mg 3 times a day. MRI of the brain showed no evidence of any infarcts. Showed no acute intracranial process. There was diffuse nonspecific white matter changes. Remote microvascular ischemia favored. Area of encephalomalacia involving the right parietal lobe stable suggestive of remote ischemia. Patient evaluated by neurology. Patient still concerned that her symptoms might of been viral. Therefore, infectious disease was consulted. Infectious disease did order lab tests for CMV, Nish-Pitts virus, herpes simplex, varicella-zoster. These results can be followed outpatient. Prednisone was discontinued. It was felt that her medications such as the prednisone may have been consuming [place] patient's symptoms. Her tongue swelling has improved. And patient is eager for discharge. Again most likely her symptoms were medication related possibly angioedema from the lisinopril. However underlying virus is a possibility. Awaiting those blood work results. Patient will follow-up with her PCP to go over those results. No evidence of stroke. Her Valtrex was completed during this admission. The Neurontin was discontinued as well as prednisone. Patient also evaluated by pain service regarding her headaches. She was found have occipital neuritis and they recommended a nerve block. Patient wants to do this outpatient. She'll continue with the [place] as needed for pain control. She will also be given a prescription for Xanax 3 times a day as needed for her anxiety disorder. Patient is medically stable for discharge. She'll follow-up with her PCP in 1 week. Follow-up with pain service outpatient in 2 weeks. Patient medical stable for discharge. Please refer to chart for any further details. Patient Condition at Discharge: Stable Plan - Discharge Summary New Discharge Prescriptions: New ALPRAZolam [Xanax] 0.25 mg PO TID PRN #30 tab PRN Reason: Anxiety Verapamil Sr [Isoptin Sr] 360 mg PO DAILY #30 tab Continue Atorvastatin [Lipitor] 40 mg PO DAILY Aspirin 81 mg PO DAILY Omeprazole [PriLOSEC] 20 mg PO DAILY Levothyroxine Sodium [Synthroid] 100 mcg PO DAILY PARoxetine HCL [Paxil] 40 mg PO HS Gabapentin [Neurontin] 300 mg PO TID HYDROcodone/APAP 7.5-325MG [[place] 7.5-325] 1 tab PO Q6HR PRN #30 PRN Reason: Pain Discontinued Verapamil HCl [Verapamil ER] 240 mg PO QAM Lisinopril [Zestril] 5 mg PO HS ALPRAZolam [Xanax] 0.25 mg PO DAILY PRN PRN Reason: Anxiety valACYclovir HCL [Valtrex] 1,000 mg PO Q8H predniSONE See Taper PO DAILY Discharge Medication List Aspirin 81 mg PO DAILY 02/21/16 [History] Atorvastatin [Lipitor] 40 mg PO DAILY 02/21/16 [History] Levothyroxine Sodium [Synthroid] 100 mcg PO DAILY 01/21/17 [History] Omeprazole [PriLOSEC] 20 mg PO DAILY 01/21/17 [History] Gabapentin [Neurontin] 300 mg PO TID 01/26/17 [History] PARoxetine HCL [Paxil] 40 mg PO HS 01/26/17 [History] ALPRAZolam [Xanax] 0.25 mg PO TID PRN #30 tab 01/30/17 [Rx] HYDROcodone/APAP 7.5-325MG [[place] 7.5-325] 1 tab PO Q6HR PRN #30 01/30/17 [Rx] Verapamil Sr [Isoptin Sr] 360 mg PO DAILY #30 tab 01/30/17 [Rx] Follow up Appointment(s)/Referral(s): Irvin Veras MD [STAFF PHYSICIAN] - 2 Weeks (Please call the office to set up outpatient appointment for nerve block) Juana Borrero MD [Primary Care Provider] - 1 Week Activity/Diet/Wound Care/Special Instructions: Diet: regular Activity: as tolerated Discharge Disposition: HOME SELF-CARE
[2017-01-30] MEDS ORDERED: BUTA/APAP/CAF/COD 50-325-40-30 CAP PO STA (10:57)
[2017-01-30 12:27] LABS: HSV I IgG Interp POSITIVE (NEGATIVE); HSV II IgG Interp NEGATIVE (NEGATIVE); Varicella zoster IgG Interp POSITIVE (NEGATIVE); Varicella zoster IgG Result 4.1 AI
[2017-01-31 06:22] LABS: EBV - EA (IgG) 41.8 U/mL (<9.0); EBV - EBNA (IgG) 91.7 U/mL (<18.0); EBV - VCA IgM <10.0 U/mL (<36.0)
== END 2017-01-30 11:51 | disposition home or self-care (01) | DRG 916 ==
LOC: EC 13:57 → 3OBS 16:20 → OBSVTOIN 01-30 08:25
PROVIDERS: ADMIT Internal Medicine; ATTEND Internal Medicine
DX: T78.3XXA Angioneurotic edema, initial encounter (principal); G93.89 Other specified disorders of brain; G45.0 Vertebro-basilar artery syndrome; I10 Essential (primary) hypertension; M54.81 Occipital neuralgia; T46.4X5A Adverse effect of angiotensin-converting-enzyme inhibitors, initial encounter; D72.829 Elevated white blood cell count, unspecified; M48.00 Spinal stenosis, site unspecified; T38.0X5A Adverse effect of glucocorticoids and synthetic analogues, initial encounter; B34.9 Viral infection, unspecified; F32.9 Major depressive disorder, single episode, unspecified; G25.0 Essential tremor; E78.5 Hyperlipidemia, unspecified; F41.1 Generalized anxiety disorder; K21.9 Gastro-esophageal reflux disease without esophagitis; Z85.850 Personal history of malignant neoplasm of thyroid; Z90.710 Acquired absence of both cervix and uterus; Z87.891 Personal history of nicotine dependence; Z79.82 Long term (current) use of aspirin; Z79.899 Other long term (current) drug therapy
CPT/HCPCS: 36415; 70551; 71020; 80053; 80061; 81001; 82550; 82553; 83735; 84439; 84443; 84484; 85025; 85379; 85610; 85730; 86644; 86645; 86663; 86664; 86665; 86695; 86696; 86787; 93005; 95816

== ENCOUNTER 2017-02-05 17:52 | Inpatient (IN) | payer MEDICARE, BC ==
[2017-02-05] MEDS ORDERED: SODIUM CHLORIDE 0.9% 1,000 ML IV STA (18:40)
[2017-02-05] MEDS ORDERED: SODIUM CHLORIDE 0.9% 500 ML IV STA ×2 (18:40→19:29)
--- NOTE | 2017-02-05 18:43 | ED ---
General Adult HPI - General Chief complaint: Syncope Stated complaint: Nausea/Dizziness Time Seen by Provider: 02/05/17 18:31 Source: EMS Mode of arrival: EMS Limitations: no limitations - History of Present Illness Initial comments: This 76-year-old white female presents after having a spell where she apparently felt very dizzy and then possibly passed out. She cannot remember the exact event but apparently fell to the ground. She denies any actual injuries. She apparently got very sweaty and had some nausea. She had some shortness of breath as well but denies any known fever or chest pain. She denies any previous similar incidents. She apparently was just a hospital last week with possible viral syndrome. She has been doing well since discharge until today. She does complain of some mild chronic neck pain as well as some mild pain into her occipital region which may be chronic as well. She does complain of having 5-6 episodes of diarrhea today. No other complaints or modifying factors. - Related Data Home Medications Medication Instructions Recorded Confirmed Atorvastatin [Lipitor] 40 mg PO DAILY 02/21/16 02/05/17 Levothyroxine Sodium [Synthroid] 100 mcg PO DAILY 01/21/17 02/05/17 Omeprazole [PriLOSEC] 20 mg PO HS 01/21/17 02/05/17 PARoxetine HCL [Paxil] 40 mg PO HS 01/26/17 02/05/17 ALPRAZolam [Xanax] 0.25 mg PO TID PRN 02/05/17 02/05/17 Aspirin EC [Ecotrin Low Dose] 81 mg PO DAILY 02/05/17 02/05/17 Verapamil Sr [Isoptin Sr] 240 mg PO DAILY 02/05/17 02/05/17 Previous Rx's Medication Instructions Recorded HYDROcodone/APAP 7.5-325MG [[place] 1 tab PO Q6HR PRN #30 01/30/17 7.5-325] Allergies Allergy/AdvReac Type Severity Reaction Status Date / Time Sulfa (Sulfonamide Allergy Unknown Verified 02/05/17 19:34 Antibiotics) Childhood Review of Systems ROS Statement: Those systems with pertinent positive or pertinent negative responses have been documented in the HPI. ROS Other: All systems not noted in ROS Statement are negative. Past Medical History Past Medical History: Cancer, GERD/Reflux, Hyperlipidemia, Hypertension, Osteoarthritis (OA), Pneumonia, Thyroid Disorder Additional Past Medical History / Comment(s): HX THYROID CA with surgery, HEART MURMUR, SPINAL STENOSIS, post op pneumonia, iron deficiency anemia. History of Any Multi-Drug Resistant Organisms: None Reported Past Surgical History: Appendectomy, Back Surgery, Bladder Surgery, Hysterectomy , Joint Replacement, Orthopedic Surgery Additional Past Surgical History / Comment(s): CERVICAL SURGERY. TOTAL LT KNEE AND RT HIP. , SAVANNA ROTATOR CUFF REPAIR, THYROIDECTOMY. EXC SAVANNA CATARACTS. Bladder suspension, EGDs with bx's/colonoscopy Past Anesthesia/Blood Transfusion Reactions: Motion Sickness, Postoperative Nausea & Vomiting (PONV) Additional Past Anesthesia/Blood Transfusion Reaction / Comment(s): DEVELOPED PNEUMONIA AFTER KNEE REPLACED. SOME NAUSEA PO, NO VOMITING. Past Psychological History: Anxiety, Depression Smoking Status: Former smoker Past Alcohol Use History: Occasional Past Drug Use History: None Reported - Past Family History Father Family Medical History: Cancer Additional Family Medical History / Comment(s): Father had prostate cancer. He at the age of 92 yrs. Mother Family Medical History: No Reported History Additional Family Medical History / Comment(s): Mother is 99yrs old. She has eyesight problems. General Exam - General Exam Comments Initial Comments: GENERAL: The patient is well nourished and well hydrated. VITAL SIGNS: Heart rate, blood pressure, respiratory rate reviewed as recorded in nurse's notes. EYES: Pupils are round and reactive. Extraocular movements are intact. No conjunctival / lid redness or swelling. ENT: No external evidence of injury, swelling, or ecchymosis. Airway is patent. Throat is clear. NECK: Nontender. No swelling or evidence of injury. No subcutaneous emphysema. Trachea is midline. No thyroid mass. HEART: Regular rate and rhythm. Good peripheral pulses. LUNGS/CHEST: Breath sounds clear and equal bilaterally. No rales, rhonchi, or wheezes. No ecchymosis, subcutaneous emphysema, or tenderness. ABDOMEN: Abdomen soft without tenderness. No palpable masses or organomegaly. No peritoneal signs. No abdominal wall swelling or ecchymosis. EXTREMITIES: No extremity tenderness. Normal muscle tone and function. No thoracolumbar tenderness. NEUROLOGIC: Sensation is grossly intact. Cranial nerve exam reveals face is symmetrical, tongue is midline, speech is clear. SKIN: No abrasions or ecchymosis is noted. No induration or masses noted. PSYCHIATRIC: Alert and oriented. Appropriate behavior and judgment. Limitations: no limitations Course Vital Signs 02/05/17 02/05/17 02/05/17 17:54 18:55 19:32 Temperature 98.6 F 98.1 F Pulse Rate 90 79 74 Respiratory 18 20 18 Rate Blood Pressure 111/51 106/54 119/57 Blood Pressure [Right Arm Sitting] Blood Pressure [Right Arm Standing] Blood Pressure [Right Arm Supine] O2 Sat by Pulse 96 97 96 Oximetry 02/05/17 19:45 Temperature Pulse Rate Respiratory Rate Blood Pressure Blood Pressure 127/60 [Right Arm Sitting] Blood Pressure 125/57 [Right Arm Standing] Blood Pressure 123/57 [Right Arm Supine] O2 Sat by Pulse Oximetry Medical Decision Making - Medical Decision Making The patient was seen and examined. All diagnostics were reviewed. An IV is established and she is placed on cardiac cath technologist. No ectopy is identified. The EKG shows a normal sinus rhythm at a rate of 91. No acute ST-T wave changes are identified. The [place] interval is 186, QRS duration is 86, and the QTc interval is 425. She is hydrated. Her white blood cell count is significantly elevated and her CO2 is decreased. The possibility of infection and dehydration certainly is possible. The exact cause of the diarrhea is not definitively determined. The chest x-ray does not show any evidence of acute processes. Due to her headache and neck pain and falls a computed tomography scan of her head and neck was done and this is negative for acute processes. The urine does show evidence of a urinary tract infection. It is felt as though she would benefit from admission to the hospital for further treatment. She started on Rocephin. Case will be discussed with medicine shortly. The patient is requesting Dr. Mirza to consult as well as he saw her this past week and did some viral testing with unknown results and also because she has an acute infection again. - Lab Data Result diagrams: 02/05/17 18:13 02/05/17 18:13 Lab Results 02/05/17 02/05/17 02/05/17 Range/Units 18:13 18:13 18:13 WBC 22.5 H (3.8-10.6) k/uL RBC 4.50 (3.80-5.40) m/uL Hgb 13.0 (11.4-16.0) gm/dL Hct 38.2 (34.0-46.0) % MCV 85.0 (80.0-100.0) fL MCH 28.9 (25.0-35.0) pg MCHC 34.0 (31.0-37.0) g/dL RDW 15.2 (11.5-15.5) % Plt Count 335 (150-450) k/uL Neutrophils % 89 % Lymphocytes % 5 % Monocytes % 5 % Eosinophils % 1 % Basophils % 0 % Neutrophils # 20.0 H (1.3-7.7) k/uL Lymphocytes # 1.2 (1.0-4.8) k/uL Monocytes # 1.1 H (0-1.0) k/uL Eosinophils # 0.1 (0-0.7) k/uL Basophils # 0.0 (0-0.2) k/uL PT (9.0-12.0) sec INR (<1.1) APTT (22.0-30.0) sec Sodium 139 (137-145) mmol/L Potassium 3.5 (3.5-5.1) mmol/L Chloride 105 (98-107) mmol/L Carbon Dioxide 18 L (22-30) mmol/L Anion Gap 16 mmol/L BUN 18 H (7-17) mg/dL Creatinine 1.03 (0.52-1.04) mg/dL Est GFR (MDRD) Af Amer >60 (>60 ml/min/1.73 sqM) Est GFR (MDRD) Non-Af 52 (>60 ml/min/1.73 sqM) Glucose 124 H (74-99) mg/dL Calcium 9.4 (8.4-10.2) mg/dL Magnesium 2.5 H (1.6-2.3) mg/dL Total Bilirubin 0.6 (0.2-1.3) mg/dL AST 28 (14-36) U/L ALT 24 (9-52) U/L Alkaline Phosphatase 100 (38-126) U/L Total Creatine Kinase 45 (30-135) U/L CK-MB (CK-2) 0.3 (0.0-2.4) ng/mL CK-MB (CK-2) Rel Index 0.7 Troponin I <0.012 (0.000-0.034) ng/mL Total Protein 6.4 (6.3-8.2) g/dL Albumin 3.7 (3.5-5.0) g/dL Urine Color Urine Appearance (Clear) Urine pH (5.0-8.0) Ur Specific [place] (1.001-1.035) Urine Protein (Negative) Urine Glucose (UA) (Negative) Urine Ketones (Negative) Urine Blood (Negative) Urine Nitrite (Negative) Urine Bilirubin (Negative) Urine Urobilinogen (<2.0) mg/dL Ur Leukocyte Esterase (Negative) Urine RBC (0-5) /hpf Urine WBC (0-5) /hpf Ur Squamous Epith Cells (0-4) /hpf Amorphous Sediment (None) /hpf Urine Bacteria (None) /hpf Hyaline Casts (0-2) /lpf Urine Mucus (None) /hpf 02/05/17 02/05/17 Range/Units 18:13 19:24 WBC (3.8-10.6) k/uL RBC (3.80-5.40) m/uL Hgb (11.4-16.0) gm/dL Hct (34.0-46.0) % MCV (80.0-100.0) fL MCH (25.0-35.0) pg MCHC (31.0-37.0) g/dL RDW (11.5-15.5) % Plt Count (150-450) k/uL Neutrophils % % Lymphocytes % % Monocytes % % Eosinophils % % Basophils % % Neutrophils # (1.3-7.7) k/uL Lymphocytes # (1.0-4.8) k/uL Monocytes # (0-1.0) k/uL Eosinophils # (0-0.7) k/uL Basophils # (0-0.2) k/uL PT 9.9 (9.0-12.0) sec INR 1.0 (<1.1) APTT 23.3 (22.0-30.0) sec Sodium (137-145) mmol/L Potassium (3.5-5.1) mmol/L Chloride (98-107) mmol/L Carbon Dioxide (22-30) mmol/L Anion Gap mmol/L BUN (7-17) mg/dL Creatinine (0.52-1.04) mg/dL Est GFR (MDRD) Af Amer (>60 ml/min/1.73 sqM) Est GFR (MDRD) Non-Af (>60 ml/min/1.73 sqM) Glucose (74-99) mg/dL Calcium (8.4-10.2) mg/dL Magnesium (1.6-2.3) mg/dL Total Bilirubin (0.2-1.3) mg/dL AST (14-36) U/L ALT (9-52) U/L Alkaline Phosphatase (38-126) U/L Total Creatine Kinase (30-135) U/L CK-MB (CK-2) (0.0-2.4) ng/mL CK-MB (CK-2) Rel Index Troponin I (0.000-0.034) ng/mL Total Protein (6.3-8.2) g/dL Albumin (3.5-5.0) g/dL Urine Color Dark Brown Urine Appearance Cloudy H (Clear) Urine pH 5.5 (5.0-8.0) Ur Specific [place] 1.015 (1.001-1.035) Urine Protein 1+ H (Negative) Urine Glucose (UA) Negative (Negative) Urine Ketones Negative (Negative) Urine Blood Negative (Negative) Urine Nitrite Negative (Negative) Urine Bilirubin Negative (Negative) Urine Urobilinogen 4.0 (<2.0) mg/dL Ur Leukocyte Esterase Large H (Negative) Urine RBC 2 (0-5) /hpf Urine WBC 40 H (0-5) /hpf Ur Squamous Epith Cells 15 H (0-4) /hpf Amorphous Sediment Rare H (None) /hpf Urine Bacteria Occasional H (None) /hpf Hyaline Casts 153 H (0-2) /lpf Urine Mucus Rare H (None) /hpf Disposition Clinical Impression: Syncope, Weakness, Diarrhea, UTI (urinary tract infection), Leukocytosis, Dehydration, Fall, Headache, Neck pain Disposition: ADMITTED IP TO THIS HOSP Condition: Fair Referrals: Juana Borrero MD [Primary Care Provider] - 1-2 days Time of Disposition: 20:12 Decision Date: 02/05/17 Decision Time: 20:12
[2017-02-05 18:50] LABS: Basophils % (A) 0 %; CH 27.8; CHCM 32.9; Eosinophils # (A) 0.1 k/uL (0-0.7); Eosinophils % (A) 1 %; HCT 38.2 % (34.0-46.0); HDW 2.47; Luc # (Auto) 0.09; Luc % (Auto) 0; Lymphocytes # (A) 1.2 k/uL (1.0-4.8); Lymphocytes % (A) 5 %; MCH 28.9 pg (25.0-35.0); Mean Platelet Volume 7.8; Monocytes # (A) 1.1 k/uL (0-1.0); Monocytes % (A) 5 %; Neutrophils % (A) 89 %; RDW 15.2 % (11.5-15.5); WBC 22.5 k/uL (3.8-10.6); WBC (Perox) 22.89
[2017-02-05 18:59] LABS: Partial Thromboplastin Time 23.3 sec (22.0-30.0); Prothrombin Time 9.9 sec (9.0-12.0)
--- NOTE | 2017-02-05 19:12 | XR ---
EXAMINATION TYPE: XR chest 2V DATE OF EXAM: 02/05/2017 COMPARISON: January 26, 2017 HISTORY: Shortness of breath TECHNIQUE: Frontal and lateral views of the chest are obtained. FINDINGS: Scattered senescent parenchymal changes noted. Hyperinflation compatible with COPD. No evidence for infiltrate. No evidence for atelectasis. Heart size is stable. Mediastinal structures are stable and grossly unremarkable. No evidence for hilar prominence. Degenerative changes dorsal spine. IMPRESSION: 1. No evidence for acute pulmonary disease.
[2017-02-05 19:13] LABS: ALT 24 U/L (9-52); AST 28 U/L (14-36); Alkaline Phosphatase 100 U/L (38-126); Anion Gap 16 mmol/L; Blood Urea Nitrogen 18 mg/dL (7-17); Calcium 9.4 mg/dL (8.4-10.2); Carbon Dioxide 18 mmol/L (22-30); Chloride 105 mmol/L (98-107); Glucose 124 mg/dL (74-99); Magnesium 2.5 mg/dL (1.6-2.3); Non-African American GFR(MDRD) 52 (>60 ml/min/1.73 sqM); Potassium 3.5 mmol/L (3.5-5.1); Sodium 139 mmol/L (137-145); Total Bilirubin 0.6 mg/dL (0.2-1.3); Total Protein 6.4 g/dL (6.3-8.2)
[2017-02-05 19:23] LABS: Creatine Kinase 45 U/L (30-135)
--- NOTE | 2017-02-05 19:26 | CT ---
EXAMINATION TYPE: CT brain paulo hernandez DATE OF EXAM: 02/05/2017 COMPARISON: NONE HISTORY: Dizziness with fall injuries. CT DLP: 1319.[address] of the brain was performed. The ventricles, basal cisterns and sulci overlying the cerebral convexities demonstrate enlargement. There is no evidence for intracranial hemorrhage or sulcal effacement. There is decreased attenuatio n about the periventricular white matter and deep white matter of both cerebral hemispheres, compatib le with chronic small vessel ischemia. No mass effects are seen. If symptoms persist consider MRI. Osseous calvarium is intact. IMPRESSION: 1. Age related atrophic and chronic small vessel ischemic change without acute intracranial process seen at this time. CT Cervical Spine: Unenhanced CT of the cervical spine was performed with bone and soft tissue window settings submitted . Coronal and sagittal reconstruction is obtained. There is normal alignment and prevertebral soft tissues. No evidence for acute cervical fracture . Postoperative change of anterior cervical discectomy and fusion at C4-5 C5-6 and C6-7. Scattered dege nerative disc disease and spondylosis. Biapical scarring. IMPRESSION: 1. No evidence for acute fracture or subluxation of the cervical spine.
[2017-02-05 19:36] LABS: Creatine Kinase MB 0.3 ng/mL (0.0-2.4); Troponin I <0.012 ng/mL (0.000-0.034)
[2017-02-05] MEDS ORDERED: MAG HYDROX/AL HYDROX/SIMETH 30 ML, HYOSCYAMINE ELIXIR 10 ML, CIMETIDINE HCL 300 MG, LID... PO STA ×4 (19:38)
[2017-02-05 19:48] LABS: Amorphous Sediment,Urine Rare /hpf; Appearance,Urine Cloudy (Clear); Bacteria,Urine Occasional /hpf; Bilirubin,Urine Negative (Negative); Glucose,Urine (UA) Negative (Negative); Ketones,Urine Negative (Negative); Leukocyte Esterase,Urine Large (Negative); Mucus,Urine Rare /hpf; Nitrite,Urine Negative (Negative); PH, Urine 5.5 (5.0-8.0); Particle Count 5236; Protein,Urine 1+ (Negative); RBC,Urine 2 /hpf (0-5); Specific Gravity,Urine 1.015 (1.001-1.035); Squamous Epithelial Cell,Urine 15 /hpf (0-4); UA Billing (MACRO vs. MICRO) MICRO; WBC,Urine 40 /hpf (0-5)
[2017-02-05] MEDS ORDERED: ACETAMINOPHEN TAB 325 MG TAB PO PRN (20:14)
[2017-02-05] MEDS ORDERED: LOPERAMIDE 2 MG CAP PO PRN (20:14)
[2017-02-05] MEDS ORDERED: NALOXONE 0.4 MG/ML 1 ML VIAL IV PRN (20:14)
[2017-02-05] MEDS ORDERED: ONDANSETRON 4 MG/2 ML VIAL IVP PRN (20:14)
[2017-02-05] MEDS: PARoxetine 20 MG TAB PO SCH (23:41)
[2017-02-05] MEDS: HYDROcodone/APAP 7.5-325MG 1 EACH TAB PO PRN (23:41)
[2017-02-06 02:20] LABS: Basophils % (A) 0 %; CH 27.4; CHCM 32.3; Eosinophils # (A) 0.1 k/uL (0-0.7); Eosinophils % (A) 1 %; HCT 34.9 % (34.0-46.0); HGB 11.8 gm/dL (11.4-16.0); Luc % (Auto) 1; Lymphocytes # (A) 1.5 k/uL (1.0-4.8); Lymphocytes % (A) 9 %; MCH 28.8 pg (25.0-35.0); MCHC 33.7 g/dL (31.0-37.0); MCV 85.4 fL (80.0-100.0); Mean Platelet Volume 7.5; Monocytes # (A) 0.7 k/uL (0-1.0); Monocytes % (A) 4 %; Neutrophils # (A) 15.7 k/uL (1.3-7.7); Neutrophils % (A) 87 %; RBC 4.09 m/uL (3.80-5.40); RDW 15.2 % (11.5-15.5); WBC 18.1 k/uL (3.8-10.6)
[2017-02-06] MEDS: ALPRAZolam 0.25 MG TAB PO PRN (04:55)
[2017-02-06 05:05] LABS: Basophils % (A) 0 %; CH 27.1; CHCM 30.1; Eosinophils # (A) 0.1 k/uL (0-0.7); Eosinophils % (A) 1 %; HCT 36.5 % (34.0-46.0); HDW 2.32; HGB 11.5 gm/dL (11.4-16.0); Hypochromasia Moderate; Luc # (Auto) 0.12; Luc % (Auto) 1; Lymphocytes # (A) 1.6 k/uL (1.0-4.8); Lymphocytes % (A) 12 %; MCH 28.5 pg (25.0-35.0); MCHC 31.5 g/dL (31.0-37.0); Mean Platelet Volume 7.4; Monocytes # (A) 0.5 k/uL (0-1.0); Monocytes % (A) 4 %; Neutrophils # (A) 11.2 k/uL (1.3-7.7); Neutrophils % (A) 83 %; RBC 4.04 m/uL (3.80-5.40); RDW 15.2 % (11.5-15.5); WBC 13.5 k/uL (3.8-10.6); WBC (Perox) 13.64
[2017-02-06 05:06] LABS: MCV 90.5 fL (80.0-100.0)
[2017-02-06 05:16] LABS: ALT 30 U/L (9-52); AST 18 U/L (14-36); Alkaline Phosphatase 82 U/L (38-126); Anion Gap 9 mmol/L; Blood Urea Nitrogen 14 mg/dL (7-17); Calcium 8.3 mg/dL (8.4-10.2); Carbon Dioxide 24 mmol/L (22-30); Chloride 105 mmol/L (98-107); Glucose 108 mg/dL (74-99); Magnesium 2.2 mg/dL (1.6-2.3); Non-African American GFR(MDRD) 54 (>60 ml/min/1.73 sqM); Phosphorous 4.1 mg/dL (2.5-4.5); Potassium 4.8 mmol/L (3.5-5.1); Sodium 138 mmol/L (137-145); Total Bilirubin 0.4 mg/dL (0.2-1.3); Total Protein 5.3 g/dL (6.3-8.2)
[2017-02-06] MEDS: HYDROcodone/APAP 7.5-325MG 1 EACH TAB PO PRN ×3 (06:13→18:13)
[2017-02-06] MEDS: LEVOTHYROXINE 100 MCG TAB PO SCH (06:14)
[2017-02-06] MEDS: ASPIRIN 81 MG CHEW PO SCH (08:34)
[2017-02-06] MEDS: ATORVASTATIN 40 MG TAB PO SCH (08:49)
[2017-02-06] MEDS: PANTOPRAZOLE 40 MG/10 ML VIAL IV SCH (08:49)
[2017-02-06] MEDS: VERAPAMIL SR 240 MG TABLET.ER PO SCH (08:49)
[2017-02-06] MEDS ORDERED: ENOXAPARIN 30 MG/0.3 ML SYRINGE SQ SCH (09:00)
[2017-02-06] MEDS ORDERED: RX INFO: IV CONTRAST WAS GIVEN 1 EACH MISC MISCELLANE PRN (10:51)
--- NOTE | 2017-02-06 10:51 | P.CONS ---
History of Present Illness - Reason for Consult Consult date: 02/06/17 GI bleed Requesting physician: Emily Ho - History of Present Illness 76-year-old female Dr. Borrero patient with a history of iron deficiency anemia, hypertension, hyperlipidemia presents with weakness, status post fall and abdominal pain with diarrhea. She was recently hospitalized with flulike symptoms numbness tingling around her mouth possibly viral in nature and prescribed antivirals/steroids in outpatient setting. Recent brain MRI no acute process. Over the course of the last few days her symptoms worsened with more lightheadedness weakness and development of multiple episodes of nonbloody diarrhea and crampy menstrual type lower abdominal pain. She lives with her 99- year-old mother and slowly fell in the kitchen waking up on the floor not realizing she fell. C-spine negative for acute fracture. Last night she passed 3 loose bowel movements that were red in nature. Pain is mostly located in the lower abdomen crampy. No history of GI bleeding. White count 22.5 presently 13.5. Hemoglobin 11.5. INR 1.0. BUN 18. Creatinine 1.0. C. diff negative. Stool WBCs few white blood cells seen. Stool culture pending. No fever melena or hematemesis. No documented episodes of hyoptension but patient states her BP in the ER on arrival was less than 100 mmHg. Receiving IV antibiotics for suspected UTI. EGD December 2014 for evaluation of iron deficiency anemia reported mild antral gastritis no evidence of esophagitis or peptic ulcer disease. Colonoscopy May 2014 1 cm ascending colon polyp that was removed. Review of Systems Constitutional: Denies fever, chills, sweats, weight gain, or loss. HEENT: Negative for migraines, blurred vision or loss, earaches, drainage, tinnitus, oral mucosal lesions, dysphagia, or odynophagia. CARDIAC: Hypertension. Hyperlipidemia. Negative for chest pain, arrhythmias, or palpitation. RESPIRATORY: Negative for shortness of breath, hemoptysis, cough, or sputum production. GI: See HPI for pertinent findings. : Negative for hematuria, urgency, frequency, polyuria, or dysuria. GYNc: Denies possibility of . Negative vaginal discharge. MUSCULOSKELETAL: Negative for muscle aches, swelling, arthritis, and arthralgias. NEUROLOGIC: Negative for stroke or TIA. ENDOCRINE: History of thyroid carcinoma. SKIN: Negative for rash or itching. PSYCHIATRIC: History of depression and anxietymale Past Medical History Past Medical History: Cancer, GERD/Reflux, Hyperlipidemia, Hypertension, Osteoarthritis (OA), Pneumonia, Thyroid Disorder Additional Past Medical History / Comment(s): HX THYROID CA with surgery, HEART MURMUR, SPINAL STENOSIS, post op pneumonia, iron deficiency anemia. History of Any Multi-Drug Resistant Organisms: None Reported Past Surgical History: Appendectomy, Back Surgery, Bladder Surgery, Hysterectomy , Joint Replacement, Orthopedic Surgery Additional Past Surgical History / Comment(s): CERVICAL SURGERY. TOTAL LT KNEE AND RT HIP. , SAVANNA ROTATOR CUFF REPAIR, THYROIDECTOMY. EXC SAVANNA CATARACTS. Bladder suspension, EGDs with bx's/colonoscopy Past Anesthesia/Blood Transfusion Reactions: Motion Sickness, Postoperative Nausea & Vomiting (PONV) Additional Past Anesthesia/Blood Transfusion Reaction / Comm: DEVELOPED PNEUMONIA AFTER KNEE REPLACED. SOME NAUSEA PO, NO VOMITING. Past Psychological History: Anxiety, Depression Additional Psychological History / Comment(s): Pt states her 99 yr old mother lives with her. Pt is independent. She uses no assistive device. She drives. 17 years. Worked some [employer] no experience. No international travel. Goes to [place] to visit her children. No ill contacts Smoking Status: Former smoker Past Alcohol Use History: Occasional Past Drug Use History: None Reported - Past Family History Father Family Medical History: Cancer Additional Family Medical History / Comment(s): Father had prostate cancer. He at the age of 92 yrs. Mother Family Medical History: No Reported History Additional Family Medical History / Comment(s): Mother is 99yrs old. She has eyesight problems. Medications and Allergies Home Medications Medication Instructions Recorded Confirmed Type Atorvastatin [Lipitor] 40 mg PO DAILY 02/21/16 02/05/17 History Levothyroxine Sodium [Synthroid] 100 mcg PO DAILY 01/21/17 02/05/17 History Omeprazole [PriLOSEC] 20 mg PO HS 01/21/17 02/05/17 History PARoxetine HCL [Paxil] 40 mg PO HS 01/26/17 02/05/17 History ALPRAZolam [Xanax] 0.25 mg PO TID PRN 02/05/17 02/05/17 History Aspirin EC [Ecotrin Low Dose] 81 mg PO DAILY 02/05/17 02/05/17 History Verapamil Sr [Isoptin Sr] 240 mg PO DAILY 02/05/17 02/05/17 History Allergies Allergy/AdvReac Type Severity Reaction Status Date / Time Sulfa (Sulfonamide Allergy Unknown Verified 02/05/17 19:34 Antibiotics) Childhood Physical Exam Vitals: Vital Signs Temp Pulse Pulse Resp BP BP BP 02/06/17 10:00 68 18 129/56 02/06/17 09:00 67 10 L 126/64 02/06/17 08:00 98.3 F 68 70 18 148/67 02/06/17 07:00 75 30 H 148/67 02/06/17 06:00 69 12 145/80 02/06/17 05:02 69 32 H 02/06/17 04:00 70 18 02/06/17 02:00 70 02/06/17 01:30 66 142/65 02/05/17 22:32 98.5 F 74 18 131/62 02/05/17 21:17 98.6 F 73 18 132/67 02/05/17 20:46 65 18 118/57 02/05/17 19:45 127/60 125/57 02/05/17 19:32 98.1 F 74 18 119/57 02/05/17 18:55 79 20 106/54 02/05/17 17:54 98.6 F 90 18 111/51 BP Pulse Ox 02/06/17 10:00 95 02/06/17 09:00 97 02/06/17 08:00 96 02/06/17 07:00 96 02/06/17 06:00 96 02/06/17 05:02 02/06/17 04:00 02/06/17 02:00 155/67 02/06/17 01:30 02/05/17 22:32 96 02/05/17 21:17 97 02/05/17 20:46 98 02/05/17 19:45 123/57 02/05/17 19:32 96 02/05/17 18:55 97 02/05/17 17:54 96 Intake and Output 02/05/17 02/06/17 02/06/17 22:59 06:59 14:59 Intake Total 220 400 Output Total 300 Balance 220 100 Intake: IV 100 400 Sodium Chloride 0.9% 1, 100 400 000 ml @ 100 mls/hr IV . Q10H STA Rx#:[id number] Oral 120 Output: Urine 300 Other: Voiding Method Toilet # Voids 2 2 1 # Bowel Movements 1 Weight 73.936 kg 74 kg General appearance: The patient is alert, oriented, in no acute distress. HET: Head is normocephalic and atraumatic. Pupils are equal and reactive. Oropharynx is clear without lesions. Neck: Supple without lymphadenopathy. Trachea midline. Heart: S1 S2. Regular rate and rhythm. Lungs: No crackles or wheezes are heard. Abdomen: Soft, tenderness left lower quadrant, nondistended with bowel sounds. No peritoneal signs. No palpable organomegaly or masses. Extremities: Normal skin color and turgor. No cyanosis, rash, ulceration, clubbing, or edema. Radial and pedal pulses are 2/4 bilaterally. Neurological: No focal deficits. Strength and sensation are grossly intact. Results CBC & Chem 7: 02/06/17 04:34 02/06/17 04:34 Labs: Abnormal Lab Results - Last 24 Hours (Table) 02/05/17 02/05/17 02/05/17 Range/Units 18:13 18:13 19:24 WBC 22.5 H (3.8-10.6) k/uL Neutrophils # 20.0 H (1.3-7.7) k/uL Monocytes # 1.1 H (0-1.0) k/uL Carbon Dioxide 18 L (22-30) mmol/L BUN 18 H (7-17) mg/dL Glucose 124 H (74-99) mg/dL Calcium (8.4-10.2) mg/dL Magnesium 2.5 H (1.6-2.3) mg/dL Total Protein (6.3-8.2) g/dL Albumin (3.5-5.0) g/dL Urine Appearance Cloudy H (Clear) Urine Protein 1+ H (Negative) Ur Leukocyte Esterase Large H (Negative) Urine WBC 40 H (0-5) /hpf Ur Squamous Epith Cells 15 H (0-4) /hpf Amorphous Sediment Rare H (None) /hpf Urine Bacteria Occasional H (None) /hpf Hyaline Casts 153 H (0-2) /lpf Urine Mucus Rare H (None) /hpf Stool Occult Blood (Negative) 02/05/17 02/06/17 02/06/17 Range/Units 21:36 02:00 04:34 WBC 18.1 H 13.5 H (3.8-10.6) k/uL Neutrophils # 15.7 H 11.2 H (1.3-7.7) k/uL Monocytes # (0-1.0) k/uL Carbon Dioxide (22-30) mmol/L BUN (7-17) mg/dL Glucose (74-99) mg/dL Calcium (8.4-10.2) mg/dL Magnesium (1.6-2.3) mg/dL Total Protein (6.3-8.2) g/dL Albumin (3.5-5.0) g/dL Urine Appearance (Clear) Urine Protein (Negative) Ur Leukocyte Esterase (Negative) Urine WBC (0-5) /hpf Ur Squamous Epith Cells (0-4) /hpf Amorphous Sediment (None) /hpf Urine Bacteria (None) /hpf Hyaline Casts (0-2) /lpf Urine Mucus (None) /hpf Stool Occult Blood Positive H (Negative) 02/06/17 Range/Units 04:34 WBC (3.8-10.6) k/uL Neutrophils # (1.3-7.7) k/uL Monocytes # (0-1.0) k/uL Carbon Dioxide (22-30) mmol/L BUN (7-17) mg/dL Glucose 108 H (74-99) mg/dL Calcium 8.3 L (8.4-10.2) mg/dL Magnesium (1.6-2.3) mg/dL Total Protein 5.3 L (6.3-8.2) g/dL Albumin 3.1 L (3.5-5.0) g/dL Urine Appearance (Clear) Urine Protein (Negative) Ur Leukocyte Esterase (Negative) Urine WBC (0-5) /hpf Ur Squamous Epith Cells (0-4) /hpf Amorphous Sediment (None) /hpf Urine Bacteria (None) /hpf Hyaline Casts (0-2) /lpf Urine Mucus (None) /hpf Stool Occult Blood (Negative) Microbiology - Last 24 Hours (Table) 02/05/17 21:36 Stool for WBCs - Final Stool 02/05/17 21:36 Stool Culture - Preliminary Stool Assessment and Plan (1) Rectal bleeding Narrative/Plan: Suspect ischemic colitis with reports of lightheadedness and hypotension possible infectious. Status: Acute (2) GI bleed Status: Acute (3) Dehydration Status: Acute (4) Diarrhea Status: Acute (5) Fall Status: Acute (6) Anemia Narrative/Plan: History of iron deficiency anemia suspect component of mild acute blood loss. Status: Acute Plan: 1. Ct abdomen. IV abx. Clear liquid diet and observe. Hold Lovenox. 2. Endoscopic exam not planned at this time but contingent on clinical course. Outpatient colonoscopy was discussed after discharge upon reevaluation in GI office 1-2 weeks patient is agreeable with this plan. 3. Will follow with you. CBC monitoring. Thank you for this kind referral and the opportunity to participate in the care of your patient. This consultation was discussed with Dr. Morin. The impression and plan of care have been directed as dictated.
[2017-02-06 11:00] LABS: Appearance,Urine Clear (Clear); Bilirubin,Urine Negative (Negative); Glucose,Urine (UA) Negative (Negative); Ketones,Urine Negative (Negative); Leukocyte Esterase,Urine Negative (Negative); Nitrite,Urine Negative (Negative); Protein,Urine Negative (Negative); Specific Gravity,Urine 1.004 (1.001-1.035); UA Billing (MACRO vs. MICRO) CHEM; Urobilinogen,Urine <2.0 mg/dL (<2.0)
[2017-02-06] MEDS: IOHEXOL 350 MG/ML 25 ML BOTTLE (ORAL USE) PO PRN ×2 (11:17→12:19)
--- NOTE | 2017-02-06 11:53 | P.HPIM ---
History of Present Illness H&P Date: 02/06/17 Chief Complaint: Diarrhea with abdominal pain and syncopal episode This is a 76-year-old female, a patient of Dr. Perdomo. She has a known past medical history of hypertension, hyperlipidemia and thyroid cancer with thyroidectomy. She was initially in the hospital on January 27 due to a possible viral illness as well as possible angioedema due to CARSON inhibitor. Patient reports that she was doing well on Friday and then Friday she started to have lower abdominal cramping and then the diarrhea started. She had multiple episodes of watery stools. I'm one of the times to the restroom patient felt weak and may have passed out landing on the floor. She reports that she passed out for possibly a second. Did not injure herself. Patient was also having some shortness of breath. Called EMS. Is brought into the hospital for further evaluation and treatment. In the emergency room she had another couple of bouts of diarrhea and then developed blood in the stools. And then was having bowel movements without stool and just blood. She was then brought to the ICU from the fourth floor. Started on IV Protonix. GI consult was placed. Her hemoglobin dropped from 13-11.5. Stool was positive for occult blood C. diff was negative. There was questionable UTI on admission but likely urinalysis was contaminated by the loose stools. And she was initially started on Rocephin. Repeat urinalysis is negative. EKG shows normal sinus rhythm chest x-ray was negative CAT scan of the brain and neck shows no acute changes. White count on admission was elevated at 22.5 and has come down to 13.5. Patient seen by GI service to not planning on any endoscopy at this point likely they felt that patient likely has colitis possibly ischemic versus infectious. They recommended continuing antibiotics for now. Patient denies any chest pain. Denies any nausea or vomiting. Denies any burning with urination. She does report that she still feels that there is some swelling in the bottom lip. But still better than when she was in the hospital on the last mission. Dr. Martins has been consulted for ICU management. We'll also check a echo and carotid. Review of Systems Refer to HPI otherwise unremarkable Past Medical History Past Medical History: Cancer, GERD/Reflux, Hyperlipidemia, Hypertension, Osteoarthritis (OA), Pneumonia, Thyroid Disorder Additional Past Medical History / Comment(s): HX THYROID CA with surgery, HEART MURMUR, SPINAL STENOSIS, post op pneumonia, iron deficiency anemia. History of Any Multi-Drug Resistant Organisms: None Reported Past Surgical History: Appendectomy, Back Surgery, Bladder Surgery, Hysterectomy , Joint Replacement, Orthopedic Surgery Additional Past Surgical History / Comment(s): CERVICAL SURGERY. TOTAL LT KNEE AND RT HIP. , SAVANNA ROTATOR CUFF REPAIR, THYROIDECTOMY. EXC SAVANNA CATARACTS. Bladder suspension, EGDs with bx's/colonoscopy Past Anesthesia/Blood Transfusion Reactions: Motion Sickness, Postoperative Nausea & Vomiting (PONV) Additional Past Anesthesia/Blood Transfusion Reaction / Comment(s): DEVELOPED PNEUMONIA AFTER KNEE REPLACED. SOME NAUSEA PO, NO VOMITING. Past Psychological History: Anxiety, Depression Additional Psychological History / Comment(s): Pt states her 99 yr old mother lives with her. Pt is independent. She uses no assistive device. She drives. 17 years. Worked some [employer] no experience. No international travel. Goes to [place] to visit her children. No ill contacts Smoking Status: Former smoker Past Alcohol Use History: Occasional Past Drug Use History: None Reported - Past Family History Father Family Medical History: Cancer Additional Family Medical History / Comment(s): Father had prostate cancer. He at the age of 92 yrs. Mother Family Medical History: No Reported History Additional Family Medical History / Comment(s): Mother is 99yrs old. She has eyesight problems. Medications and Allergies Home Medications Medication Instructions Recorded Confirmed Type Atorvastatin [Lipitor] 40 mg PO DAILY 02/21/16 02/05/17 History Levothyroxine Sodium [Synthroid] 100 mcg PO DAILY 01/21/17 02/05/17 History Omeprazole [PriLOSEC] 20 mg PO HS 01/21/17 02/05/17 History PARoxetine HCL [Paxil] 40 mg PO HS 01/26/17 02/05/17 History ALPRAZolam [Xanax] 0.25 mg PO TID PRN 02/05/17 02/05/17 History Aspirin EC [Ecotrin Low Dose] 81 mg PO DAILY 02/05/17 02/05/17 History Verapamil Sr [Isoptin Sr] 240 mg PO DAILY 02/05/17 02/05/17 History Allergies Allergy/AdvReac Type Severity Reaction Status Date / Time Sulfa (Sulfonamide Allergy Unknown Verified 02/05/17 19:34 Antibiotics) Childhood Physical Exam Vitals: Vital Signs Temp Pulse Pulse Resp BP BP BP 02/06/17 10:00 68 18 129/56 02/06/17 09:00 67 10 L 126/64 02/06/17 08:00 98.3 F 68 70 18 148/67 02/06/17 07:00 75 30 H 148/67 02/06/17 06:00 69 12 145/80 02/06/17 05:02 69 32 H 02/06/17 04:00 70 18 02/06/17 02:00 70 02/06/17 01:30 66 142/65 02/05/17 22:32 98.5 F 74 18 131/62 02/05/17 21:17 98.6 F 73 18 132/67 02/05/17 20:46 65 18 118/57 02/05/17 19:45 127/60 125/57 02/05/17 19:32 98.1 F 74 18 119/57 02/05/17 18:55 79 20 106/54 02/05/17 17:54 98.6 F 90 18 111/51 BP Pulse Ox 02/06/17 10:00 95 02/06/17 09:00 97 02/06/17 08:00 96 02/06/17 07:00 96 02/06/17 06:00 96 02/06/17 05:02 02/06/17 04:00 02/06/17 02:00 155/67 02/06/17 01:30 02/05/17 22:32 96 02/05/17 21:17 97 02/05/17 20:46 98 02/05/17 19:45 123/57 02/05/17 19:32 96 02/05/17 18:55 97 02/05/17 17:54 96 Intake and Output 02/05/17 02/06/17 02/06/17 22:59 06:59 14:59 Intake Total 220 400 Output Total 300 Balance 220 100 Intake: IV 100 400 Sodium Chloride 0.9% 1, 100 400 000 ml @ 100 mls/hr IV . Q10H STA Rx#:[id number] Oral 120 Output: Urine 300 Other: Voiding Method Toilet # Voids 2 2 1 # Bowel Movements 1 Weight 73.936 kg 74 kg Mouth minimal swelling of the bottom lip Head normocephalic Neck supple Lungs clear to auscultation bilaterally no wheezing or crackles Heart regular rate and rhythm S1-S2, no rub or gallop Abdomen is soft tender in the lower abdominal quadrants. Positive bowel sounds nondistended Extremities no edema Neuro alert and orientated to 3 Results CBC & Chem 7: 02/06/17 04:34 02/06/17 04:34 Labs: Abnormal Lab Results - Last 24 Hours (Table) 02/05/17 02/05/17 02/05/17 Range/Units 18:13 18:13 19:24 WBC 22.5 H (3.8-10.6) k/uL Neutrophils # 20.0 H (1.3-7.7) k/uL Monocytes # 1.1 H (0-1.0) k/uL Carbon Dioxide 18 L (22-30) mmol/L BUN 18 H (7-17) mg/dL Glucose 124 H (74-99) mg/dL Calcium (8.4-10.2) mg/dL Magnesium 2.5 H (1.6-2.3) mg/dL Total Protein (6.3-8.2) g/dL Albumin (3.5-5.0) g/dL Urine Appearance Cloudy H (Clear) Urine Protein 1+ H (Negative) Ur Leukocyte Esterase Large H (Negative) Urine WBC 40 H (0-5) /hpf Ur Squamous Epith Cells 15 H (0-4) /hpf Amorphous Sediment Rare H (None) /hpf Urine Bacteria Occasional H (None) /hpf Hyaline Casts 153 H (0-2) /lpf Urine Mucus Rare H (None) /hpf Stool Occult Blood (Negative) 02/05/17 02/06/17 02/06/17 Range/Units 21:36 02:00 04:34 WBC 18.1 H 13.5 H (3.8-10.6) k/uL Neutrophils # 15.7 H 11.2 H (1.3-7.7) k/uL Monocytes # (0-1.0) k/uL Carbon Dioxide (22-30) mmol/L BUN (7-17) mg/dL Glucose (74-99) mg/dL Calcium (8.4-10.2) mg/dL Magnesium (1.6-2.3) mg/dL Total Protein (6.3-8.2) g/dL Albumin (3.5-5.0) g/dL Urine Appearance (Clear) Urine Protein (Negative) Ur Leukocyte Esterase (Negative) Urine WBC (0-5) /hpf Ur Squamous Epith Cells (0-4) /hpf Amorphous Sediment (None) /hpf Urine Bacteria (None) /hpf Hyaline Casts (0-2) /lpf Urine Mucus (None) /hpf Stool Occult Blood Positive H (Negative) 02/06/17 Range/Units 04:34 WBC (3.8-10.6) k/uL Neutrophils # (1.3-7.7) k/uL Monocytes # (0-1.0) k/uL Carbon Dioxide (22-30) mmol/L BUN (7-17) mg/dL Glucose 108 H (74-99) mg/dL Calcium 8.3 L (8.4-10.2) mg/dL Magnesium (1.6-2.3) mg/dL Total Protein 5.3 L (6.3-8.2) g/dL Albumin 3.1 L (3.5-5.0) g/dL Urine Appearance (Clear) Urine Protein (Negative) Ur Leukocyte Esterase (Negative) Urine WBC (0-5) /hpf Ur Squamous Epith Cells (0-4) /hpf Amorphous Sediment (None) /hpf Urine Bacteria (None) /hpf Hyaline Casts (0-2) /lpf Urine Mucus (None) /hpf Stool Occult Blood (Negative) Microbiology - Last 24 Hours (Table) 02/05/17 21:36 Stool for WBCs - Final Stool 02/05/17 21:36 Stool Culture - Preliminary Stool Thrombosis Risk Factor Assmnt - Choose All That Apply Any of the Below Risk Factors Present?: Yes Each Factor Represents 1 point: Obesity (BMI >25) Other Risk Factors: Yes Each Risk Factor Represents 3 Points: Age 75 years or older Thrombosis Risk Factor Assessment Total Risk Factor Score: 4 Thrombosis Risk Factor Assessment Level: Moderate Risk Assessment and Plan Plan: 1. Syncopal episode likely secondary to dehydration and diarrhea. continue with telemetry monitoring. EKG showed normal sinus rhythm. Also check an echo and carotid Doppler. Computed tomography scan of the brain and neck shows no acute changes 2. Acute lower GI bleed: Evaluated by GI service. They suspect ischemic colitis versus possible infectious colitis. Stool for C. diff negative. Stool for occult blood is positive. And hemoglobin is 11.5. Patient currently on Rocephin. Continue IV fluid hydration. Last colonoscopy was in 2013 with a polyp removed. GI is in for outpatient colonoscopy 3. Dehydration improved with IV fluids 4. Possible UTI on admission ruled out likely urinalysis contaminated by stool. Repeat urinalysis negative 5. Leukocytosis on admission possibly related to colitis. We'll await infectious disease recommendations 6. Recent admission with angioedema due to CARSON inhibitor and possible viral illness. We'll await infectious disease evaluation. They had ordered labs on the last admission. 7. History of thyroid cancer status post thyroidectomy. Continue Synthroid. Thyroid levels normal on last admission 8. Generalized anxiety disorder and use Xanax as needed 9. Hyperlipidemia continue statin 1. Essential hypertension: Continue the verapamil GI prophylaxis Protonix and DVT prophylaxis SCD Time with Patient: Greater than 30 (Greater than 50% of the total time spent in counseling and coordination of care.I performed an examination of the patient and discussed their management with the physician Development Mgr. I have reviewed the Physician Development Mgr's notes and agree with the documented findings and plan of care)
--- NOTE | 2017-02-06 12:56 | US ---
EXAMINATION TYPE: US carotid duplex BILAT DATE OF EXAM: 02/06/2017 COMPARISON: Carotid ultrasound June 06, 2014 CLINICAL HISTORY: syncope. EXAM MEASUREMENTS: RIGHT: Peak Systolic Velocity (PSV) cm/sec ----- Right CCA: 69.0 ----- Right ICA: 77.3 ----- Right ECA: 61.0 ICA/CCA ratio: 1.1 RIGHT: End Diastole cm/sec ----- Right CCA: 19.6 ----- Right ICA: 25.3 ----- Right ECA: 0.0 LEFT: Peak Systolic Velocity (PSV) cm/sec ----- Left CCA: 71.8 ----- Left ICA: 72.4 ----- Left ECA: 69.0 ICA/CCA ratio: 1.0 LEFT: End Diastole cm/sec ----- Left CCA: 21.0 ----- Left ICA: 27.7 ----- Left ECA: 0.0 VERTEBRALS (direction of flow): Right Vertebral: Antegrade Left Vertebral: Antegrade Mild plaque, no significant stenosis seen. Grayscale images show mild eccentric hyperechoic plaque at right carotid bulb. Velocity measurements and ratios are within normal limits in visualized portion of both internal carotid arteries. IMPRESSION: No hemodynamically significant stenosis identified in either internal carotid artery. No significant change from prior study.
--- NOTE | 2017-02-06 15:28 | CT ---
EXAMINATION TYPE: CT abdomen pelvis w con DATE OF EXAM: 02/06/2017 COMPARISON: 12/11/2015 HISTORY: 76-year-old female Diarrhea with rectal bleeding TECHNIQUE: Contiguous axial scanning of the abdomen and pelvis following administration of 100 ml Omn ipaque 300 IV contrast. Delayed images through the kidneys and coronal/sagittal reconstructions perf ormed. CT DLP: 1176 mGycm Automated exposure control for dose reduction was used. FINDINGS: The heart is normal size without pericardial effusion. Strandy atelectasis/scarring at the posterior lung bases without pleural effusion. No focal liver lesion or biliary ductal dilatation. Portal venous system is patent. Gallbladder, adrenal glands, right kidney, spleen, and pancreas within normal limits. Tiny subcentime ter hypodensity anterior lower pole left kidney too small fracture CT characterization, likely cyst. No dilated small bowel or free air. A couple prominent right lower quadrant lymph nodes measuring up to 6 mm are stable from 2016. No mes enteric or retroperitoneal lymphadenopathy seen. Oral contrast has progressed to the mid transverse colon. There is long segment severe edematous wall thickening extending from the distal third transverse col on to the lower descending colon. There is mild surrounding pericolonic fat stranding and some portio ns such as at the splenic flexure show loss of normal haustrations. Bladder is urine distended. Uterus surgically absent. Mild pelvic free fluid is noted. Rectum appears normal. Bones: Right hip total arthroplasty. Mild degenerative changes left hip. Degenerative changes mid to lower lumbar spine. No osseous destructive process. IMPRESSION: 1. SEVERE LONG SEGMENT WALL THICKENING OF THE COLON EXTENDING FROM THE DISTAL THIRD TRANSVERSE COLON DOWN TO THE LOWER DESCENDING COLON. THERE IS MILD SURROUNDING INFLAMMATION. CORRELATE FOR INFECTIOUS OR INFLAMMATORY COLITIS WITH PSEUDOMEMBRANOUS COLITIS INCLUDED IN THE DIFFERENTIAL. 2. SMALL AMOUNT OF PELVIC FREE FLUID LIKELY REACTIVE.
[2017-02-06] MEDS ORDERED: ALBUTEROL NEBULIZED 2.5 MG/3 ML INHALATION PRN (16:09)
--- NOTE | 2017-02-06 16:11 | P.CNPUL ---
History of Present Illness Consult date: 02/06/17 Requesting physician: Emily Ho Reason for consult: COPD Chief complaint: sncopal episode History of present illness: This is a 76-year-old female patient being seen, examined and evaluated today. The patient came into the emergency room after having a syncopal episode. The patient states she had previously been hospitalized a week ago with a viral illness and angioedema due to an CARSON inhibitor. Following her discharge when she came home she started to have abdominal cramping and diarrhea with multiple watery stools. Patient also had some shortness of breath before her syncopal episode. Patient called EMS and was brought in the hospital for further evaluation and treatment. While in the emergency room she had diarrhea with blood in the stools. After being admitted she was noted to have some bright red blood during bowel movement so therefore she was transferred from the fourth floor to the ICU. Her hemoglobin initially was 13 and dropped to 11.5. Stools was positive for occult blood. C. difficile was negative. She was placed on Rocephin. On admission the patient's white count was 22.5 after receiving Rocephin came down to 13.5. GI is also on consult and suggest the patient has colitis possibly ischemic versus infectious. Patient has been afebrile. Patient also had a carotid Doppler which was negative. Echo results are not readily available. Upon examination patient's resting up in bed on room air. She occasionally has shortness of breath with exertion intermittently. Review of Systems 14 point review of systems was completed and is negative unless noted above. Past Medical History Past Medical History: Cancer, GERD/Reflux, Hyperlipidemia, Hypertension, Osteoarthritis (OA), Pneumonia, Thyroid Disorder Additional Past Medical History / Comment(s): HX THYROID CA with surgery, HEART MURMUR, SPINAL STENOSIS, post op pneumonia, iron deficiency anemia. History of Any Multi-Drug Resistant Organisms: None Reported Past Surgical History: Appendectomy, Back Surgery, Bladder Surgery, Hysterectomy , Joint Replacement, Orthopedic Surgery Additional Past Surgical History / Comment(s): CERVICAL SURGERY. TOTAL LT KNEE AND RT HIP. , SAVANNA ROTATOR CUFF REPAIR, THYROIDECTOMY. EXC SAVANNA CATARACTS. Bladder suspension, EGDs with bx's/colonoscopy Past Anesthesia/Blood Transfusion Reactions: Motion Sickness, Postoperative Nausea & Vomiting (PONV) Additional Past Anesthesia/Blood Transfusion Reaction / Comment(s): DEVELOPED PNEUMONIA AFTER KNEE REPLACED. SOME NAUSEA PO, NO VOMITING. Past Psychological History: Anxiety, Depression Additional Psychological History / Comment(s): Pt states her 99 yr old mother lives with her. Pt is independent. She uses no assistive device. 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 No international travel. Goes to [place] to visit her children. No ill contacts Smoking Status: Former smoker Past Alcohol Use History: Occasional Past Drug Use History: None Reported - Past Family History Father Family Medical History: Cancer Additional Family Medical History / Comment(s): Father had prostate cancer. He at the age of 92 yrs. Mother Family Medical History: No Reported History Additional Family Medical History / Comment(s): Mother is 99yrs old. She has eyesight problems. Medications and Allergies Home Medications Medication Instructions Recorded Confirmed Type Atorvastatin [Lipitor] 40 mg PO DAILY 02/21/16 02/05/17 History Levothyroxine Sodium [Synthroid] 100 mcg PO DAILY 01/21/17 02/05/17 History Omeprazole [PriLOSEC] 20 mg PO HS 01/21/17 02/05/17 History PARoxetine HCL [Paxil] 40 mg PO HS 01/26/17 02/05/17 History ALPRAZolam [Xanax] 0.25 mg PO TID PRN 02/05/17 02/05/17 History Aspirin EC [Ecotrin Low Dose] 81 mg PO DAILY 02/05/17 02/05/17 History Verapamil Sr [Isoptin Sr] 240 mg PO DAILY 02/05/17 02/05/17 History Allergies Allergy/AdvReac Type Severity Reaction Status Date / Time Sulfa (Sulfonamide Allergy Unknown Verified 02/05/17 19:34 Antibiotics) Childhood Physical Exam Vitals: Vital Signs Temp Pulse Pulse Resp BP BP BP 02/06/17 14:00 63 21 122/48 02/06/17 13:02 64 23 02/06/17 12:00 98.1 F 65 21 02/06/17 11:00 70 22 129/56 02/06/17 10:00 68 18 129/56 02/06/17 09:00 67 10 L 126/64 02/06/17 08:00 98.3 F 68 70 18 148/67 02/06/17 07:00 75 30 H 148/67 02/06/17 06:00 69 12 145/80 02/06/17 05:02 69 32 H 02/06/17 04:00 70 18 02/06/17 02:00 70 02/06/17 01:30 66 142/65 02/05/17 22:32 98.5 F 74 18 131/62 02/05/17 21:17 98.6 F 73 18 132/67 02/05/17 20:46 65 18 118/57 02/05/17 19:45 127/60 125/57 02/05/17 19:32 98.1 F 74 18 119/57 02/05/17 18:55 79 20 106/54 02/05/17 17:54 98.6 F 90 18 111/51 BP Pulse Ox 02/06/17 14:00 96 02/06/17 13:02 92 L 02/06/17 12:00 95 02/06/17 11:00 96 02/06/17 10:00 95 02/06/17 09:00 97 02/06/17 08:00 96 02/06/17 07:00 96 02/06/17 06:00 96 02/06/17 05:02 02/06/17 04:00 02/06/17 02:00 155/67 02/06/17 01:30 02/05/17 22:32 96 02/05/17 21:17 97 02/05/17 20:46 98 02/05/17 19:45 123/57 02/05/17 19:32 96 02/05/17 18:55 97 02/05/17 17:54 96 Intake and Output 02/05/17 02/06/17 02/06/17 22:59 06:59 14:59 Intake Total 220 800 Output Total 300 Balance 220 500 Intake: IV 100 800 Sodium Chloride 0.9% 1, 100 800 000 ml @ 100 mls/hr IV . Q10H STA Rx#:[id number] Oral 120 Output: Urine 300 Other: Voiding Method Toilet # Voids 2 2 1 # Bowel Movements 1 Weight 73.936 kg 74 kg GENERAL EXAM: Alert, active, comfortable in no apparent distress. HEAD: Normocephalic. EYES: Normal reaction of pupils, equal size. NOSE: Clear with pink turbinates. THROAT: No erythema or exudates. NECK: No masses, no JVD. CHEST: No chest wall deformity. LUNGS: Equal air entry with no crackles, wheeze, rhonchi or dullness. CVS: S1 and S2 normal with no audible mumurs, regular rhythm. ABDOMEN: No hepatosplenomegaly, normal bowel sounds, no guarding or rigidity. EXTREMITIES: No edema noted, pedal pulses palpable. SKIN: No rashes CENTRAL NERVOUS SYSTEM: No focal deficits, tone is normal in all 4 extremities. Results - Laboratory Findings CBC and BMP: 02/06/17 04:34 02/06/17 04:34 PT/INR, D-dimer PT 9.9 sec (9.0-12.0) 02/05/17 18:13 INR 1.0 (<1.1) 02/05/17 18:13 Abnormal lab findings: Abnormal Labs 02/05/17 02/05/17 02/05/17 18:13 18:13 19:24 WBC 22.5 H Neutrophils # 20.0 H Monocytes # 1.1 H Carbon Dioxide 18 L BUN 18 H Glucose 124 H Calcium Magnesium 2.5 H Total Protein Albumin Urine Appearance Cloudy H Urine Protein 1+ H Ur Leukocyte Esterase Large H Urine WBC 40 H Ur Squamous Epith Cells 15 H Amorphous Sediment Rare H Urine Bacteria Occasional H Hyaline Casts 153 H Urine Mucus Rare H Stool Occult Blood 02/05/17 02/06/17 02/06/17 21:36 02:00 04:34 WBC 18.1 H 13.5 H Neutrophils # 15.7 H 11.2 H Monocytes # Carbon Dioxide BUN Glucose Calcium Magnesium Total Protein Albumin Urine Appearance Urine Protein Ur Leukocyte Esterase Urine WBC Ur Squamous Epith Cells Amorphous Sediment Urine Bacteria Hyaline Casts Urine Mucus Stool Occult Blood Positive H 02/06/17 04:34 WBC Neutrophils # Monocytes # Carbon Dioxide BUN Glucose 108 H Calcium 8.3 L Magnesium Total Protein 5.3 L Albumin 3.1 L Urine Appearance Urine Protein Ur Leukocyte Esterase Urine WBC Ur Squamous Epith Cells Amorphous Sediment Urine Bacteria Hyaline Casts Urine Mucus Stool Occult Blood - Diagnostic Findings Chest x-ray: report reviewed, image reviewed Assessment and Plan Plan: Assessment Syncopal episode likely related to dehydration and diarrhea Acute lower GI bleed Acute blood loss anemia Dehydration Leukocytosis on admission possibly related to colitis History of thyroid cancer status post thyroidectomy Generalized anxiety disorder Hyperlipidemia Essential hypertension Plan Medications have been reviewed and will be continued as ordered. Continue to monitor for any further bleeding or drop in hemoglobin. Continue with pulmonary hygiene, coughing and deep breathing exercises, and supportive care. Supplemental oxygen to maintain oxygen saturations of 92% or better as needed. Continue nebulizer treatments when necessary. GI and DVT prophylaxis. GI on consult. We will continue to monitor labs/results and adjust treatment as necessary. Further recommendations pending. I performed an examination of the patient and discussed their management with the nurse practitioner. I have reviewed the nurse practitioner's note and agree with the documented findings and plan of care.
[2017-02-06] MEDS: PARoxetine 20 MG TAB PO SCH (20:47)
[2017-02-06] MEDS: ZOLPIDEM 5 MG TAB PO PRN (22:46)
[2017-02-07 06:46] LABS: Basophils % (A) 0 %; CH 27.6; CHCM 31.3; Eosinophils # (A) 0.1 k/uL (0-0.7); Eosinophils % (A) 1 %; HCT 32.8 % (34.0-46.0); HDW 2.38; HGB 10.7 gm/dL (11.4-16.0); Luc # (Auto) 0.13; Luc % (Auto) 1; Lymphocytes # (A) 1.4 k/uL (1.0-4.8); Lymphocytes % (A) 13 %; MCH 28.9 pg (25.0-35.0); MCHC 32.5 g/dL (31.0-37.0); MCV 88.9 fL (80.0-100.0); Mean Platelet Volume 7.2; Monocytes # (A) 0.5 k/uL (0-1.0); Monocytes % (A) 5 %; Neutrophils # (A) 8.5 k/uL (1.3-7.7); Neutrophils % (A) 80 %; RBC 3.69 m/uL (3.80-5.40); WBC 10.7 k/uL (3.8-10.6); WBC (Perox) 10.46
[2017-02-07 07:03] LABS: ALT 24 U/L (9-52); AST 16 U/L (14-36); Alkaline Phosphatase 77 U/L (38-126); Anion Gap 8 mmol/L; Blood Urea Nitrogen 6 mg/dL (7-17); Calcium 7.9 mg/dL (8.4-10.2); Carbon Dioxide 22 mmol/L (22-30); Chloride 107 mmol/L (98-107); Glucose 76 mg/dL (74-99); Non-African American GFR(MDRD) >60 (>60 ml/min/1.73 sqM); Sodium 137 mmol/L (137-145); Total Bilirubin 0.5 mg/dL (0.2-1.3); Total Protein 5.1 g/dL (6.3-8.2)
[2017-02-07] MEDS: LEVOTHYROXINE 100 MCG TAB PO SCH (07:04)
[2017-02-07] MEDS: ASPIRIN 81 MG CHEW PO SCH ×2 (09:26→09:34)
[2017-02-07] MEDS: ATORVASTATIN 40 MG TAB PO SCH (09:26)
[2017-02-07] MEDS: PANTOPRAZOLE 40 MG/10 ML VIAL IV SCH (09:26)
[2017-02-07] MEDS: VERAPAMIL SR 240 MG TABLET.ER PO SCH (09:26)
[2017-02-07] MEDS: HYDROcodone/APAP 7.5-325MG 1 EACH TAB PO PRN ×2 (09:27→14:01)
--- NOTE | 2017-02-07 09:42 | P.PN ---
Subjective Principal diagnosis: Rectal bleeding 76-year-old female admitted with weakness fall crampy abdominal pain and bloody diarrhea. Computed tomography scan abdomen and pelvis yesterday reported segment of colitis possible infectious possible inflammatory. No further episodes of bloody diarrhea since yesterday afternoon. Minimal abdominal pain. Towering clear liquids requesting advancement. Afebrile. Hemoglobin 10.7. Objective - Vital Signs Vital signs: Vital Signs Temp 98.1 F 02/07/17 09:35 Pulse 78 02/07/17 09:35 Resp 18 02/07/17 09:35 BP 137/65 02/07/17 09:35 Pulse Ox 98 02/07/17 09:35 Intake & Output 02/06/17 02/07/17 02/07/17 18:59 06:59 18:59 Intake Total 1100 937 180 Output Total 300 Balance 800 937 180 Weight 74.4 kg Intake: IV 1100 700 Sodium Chloride 0.9% 1, 1100 700 000 ml @ 100 mls/hr IV . Q10H STA Rx#:[id number] Oral 237 180 Output: Urine 300 Other: Voiding Method Toilet Toilet Toilet # Voids 1 3 # Bowel Movements 1 1 - Exam General appearance: The patient is alert, oriented, in no acute distress. HET: Head is normocephalic and atraumatic. Pupils are equal and reactive. Oropharynx is clear without lesions. Neck: Supple without lymphadenopathy. Trachea midline. Heart: S1 S2. Regular rate and rhythm. Lungs: No crackles or wheezes are heard. Abdomen: Soft, nontender, nondistended with bowel sounds. No peritoneal signs. No palpable organomegaly or masses. Extremities: Normal skin color and turgor. No cyanosis, rash, ulceration, clubbing, or edema. Radial and pedal pulses are 2/4 bilaterally. Neurological: No focal deficits. Strength and sensation are grossly intact. - Labs CBC & Chem 7: 02/07/17 06:08 02/07/17 06:08 Labs: Abnormal Lab Results - Last 24 Hours (Table) 02/07/17 02/07/17 Range/Units 06:08 06:08 WBC 10.7 H (3.8-10.6) k/uL RBC 3.69 L (3.80-5.40) m/uL Hgb 10.7 L (11.4-16.0) gm/dL Hct 32.8 L (34.0-46.0) % Neutrophils # 8.5 H (1.3-7.7) k/uL BUN 6 L (7-17) mg/dL Calcium 7.9 L (8.4-10.2) mg/dL Total Protein 5.1 L (6.3-8.2) g/dL Albumin 2.9 L (3.5-5.0) g/dL Microbiology - Last 24 Hours (Table) 02/06/17 10:46 Urine Culture - Preliminary Urine,Clean Catch 02/05/17 21:36 Stool for WBCs - Final Stool Assessment and Plan (1) Rectal bleeding Narrative/Plan: Suspect ischemic colitis. Status: Acute (2) GI bleed Status: Acute (3) Dehydration Status: Acute (4) Diarrhea Status: Acute (5) Fall Status: Acute (6) Anemia Narrative/Plan: History of iron deficiency anemia suspect component of mild acute blood loss. Status: Acute Plan: 1. Advance to full liquid diet then soft as tolerated. 2. Outpatient colonoscopy advised and discussed. Prefers outpatient colonoscopy. Return to office in 1-2 weeks for reevaluation. Assessment and plan a care discussed with Dr. Morin.
--- NOTE | 2017-02-07 10:13 | P.PN ---
Subjective 02/06/17-This is a 76-year-old female patient being seen, examined and evaluated today. The patient came into the emergency room after having a syncopal episode. The patient states she had previously been hospitalized a week ago with a viral illness and angioedema due to an CARSON inhibitor. Following her discharge when she came home she started to have abdominal cramping and diarrhea with multiple watery stools. Patient also had some shortness of breath before her syncopal episode. Patient called EMS and was brought in the hospital for further evaluation and treatment. While in the emergency room she had diarrhea with blood in the stools. After being admitted she was noted to have some bright red blood during bowel movement so therefore she was transferred from the fourth floor to the ICU. Her hemoglobin initially was 13 and dropped to 11.5. Stools was positive for occult blood. C. difficile was negative. She was placed on Rocephin. On admission the patient's white count was 22.5 after receiving Rocephin came down to 13.5. GI is also on consult and suggest the patient has colitis possibly ischemic versus infectious. Patient has been afebrile. Patient also had a carotid Doppler which was negative. Echo results are not readily available. Upon examination patient's resting up in bed on room air. She occasionally has shortness of breath with exertion intermittently. 02/07/17- patient was downgraded yesterday from the ICU and has remained hemodynamically stable. Minimally abdominal discomfort, however feels more fatigued today. Patient has had no further episodes of bloody diarrhea since yesterday afternoon. Hemoglobin 10.7. Tolerating her clear liquid diet, requesting advancement. Afebrile. Denies any further dizziness or shortness of breath at this time. Currently she is sitting up in bed on room air. No overnight events. Patient states she will have an outpatient colonoscopy. Objective - Vital Signs Vital signs: Vital Signs Temp 98.1 F 02/07/17 09:35 Pulse 78 02/07/17 09:35 Resp 18 02/07/17 09:35 BP 137/65 02/07/17 09:35 Pulse Ox 98 02/07/17 09:35 Intake & Output 02/06/17 02/07/17 02/07/17 18:59 06:59 18:59 Intake Total 1100 937 180 Output Total 300 Balance 800 937 180 Weight 74.4 kg Intake: IV 1100 700 Sodium Chloride 0.9% 1, 1100 700 000 ml @ 100 mls/hr IV . Q10H STA Rx#:[id number] Oral 237 180 Output: Urine 300 Other: Voiding Method Toilet Toilet Toilet # Voids 1 3 # Bowel Movements 1 1 - Exam GENERAL EXAM: Alert, active, comfortable in no apparent distress. HEAD: Normocephalic. EYES: Normal reaction of pupils, equal size. NOSE: Clear with pink turbinates. THROAT: No erythema or exudates. NECK: No masses, no JVD. CHEST: No chest wall deformity. LUNGS: Equal air entry with no crackles, wheeze, rhonchi or dullness. CVS: S1 and S2 normal with no audible mumurs, regular rhythm. ABDOMEN: No hepatosplenomegaly, normal bowel sounds, no guarding or rigidity. EXTREMITIES: No edema noted, pedal pulses palpable. SKIN: No rashes CENTRAL NERVOUS SYSTEM: No focal deficits, tone is normal in all 4 extremities. - Labs CBC & Chem 7: 02/07/17 06:08 02/07/17 06:08 Labs: Abnormal Lab Results - Last 24 Hours (Table) 02/07/17 02/07/17 Range/Units 06:08 06:08 WBC 10.7 H (3.8-10.6) k/uL RBC 3.69 L (3.80-5.40) m/uL Hgb 10.7 L (11.4-16.0) gm/dL Hct 32.8 L (34.0-46.0) % Neutrophils # 8.5 H (1.3-7.7) k/uL BUN 6 L (7-17) mg/dL Calcium 7.9 L (8.4-10.2) mg/dL Total Protein 5.1 L (6.3-8.2) g/dL Albumin 2.9 L (3.5-5.0) g/dL Microbiology - Last 24 Hours (Table) 02/06/17 10:46 Urine Culture - Preliminary Urine,Clean Catch 02/05/17 21:36 Stool for WBCs - Final Stool Assessment and Plan Plan: Assessment Syncopal episode likely related to dehydration and diarrhea Acute lower GI bleed Acute blood loss anemia Dehydration Leukocytosis on admission possibly related to colitis History of thyroid cancer status post thyroidectomy Generalized anxiety disorder Hyperlipidemia Essential hypertension Plan Medications have been reviewed and will be continued as ordered. Continue to monitor for any further bleeding or drop in hemoglobin. Continue with pulmonary hygiene, coughing and deep breathing exercises, and supportive care. Supplemental oxygen to maintain oxygen saturations of 92% or better as needed. Continue nebulizer treatments when necessary. GI and DVT prophylaxis. GI on consult, patient request an outpatient colonoscopy. Diet per GI. We will continue to monitor labs/results and adjust treatment as necessary. Further recommendations pending. I performed an examination of the patient and discussed their management with the nurse practitioner. I have reviewed the nurse practitioner's note and agree with the documented findings and plan of care.
--- NOTE | 2017-02-07 11:30 | ECHOF ---
Referral Reason:syncope MEASUREMENTS -------- HEIGHT: 167.6 cm WEIGHT: 73.9 kg BP: 118/50 RVIDd: 2.8 cm (< 3.3) IVSd: 1.1 cm (0.6 - 1.1) LVIDd: 4.0 cm (3.9 - 5.3) LVPWd: 1.1 cm (0.6 - 1.1) IVSs: 1.4 cm LVIDs: 2.7 cm LVPWs: 1.3 cm LA Diam: 3.3 cm (2.7 - 3.8) LAESV Index (A-L): 27.57 ml/m Ao Diam: 2.6 cm (2.0 - 3.7) AV Cusp: 1.6 cm (1.5 - 2.6) MV EXCURSION: 15.488 mm (> 18.000) MV EF SLOPE: 77 mm/s (70 - 150) EPSS: 0.2 cm MV E Bandar: 1.10 m/s MV DecT: 208 ms MV A Bandar: 1.31 m/s MV E/A Ratio: 0.84 AV maxP.63 mmHg AV meanP.82 mmHg RAP: 5.00 mmHg RVSP: 27.00 mmHg FINDINGS -------- Sinus rhythm. This was a technically good study. The left ventricular size is normal. There is borderline concentric left ventricular hypertrophy. Overall left ventricular systolic function is normal with, an EF between 55 - 60 %. The right ventricle is normal in size. Normal LA size by volume 22+/-6 ml/m2. The right atrium is normal in size. Mobile interatrial septum. There is mild aortic valve sclerosis. Peak/mean gradient across the Aortic Valve is 16.63mmHg / 6.82mmHg. Mild mitral annular calcification present. Mild mitral regurgitation is present. Mild tricuspid regurgitation present. Right ventricular systolic pressure is normal at < 35 mmHg. The pulmonic valve was not well visualized. There is no pulmonic regurgitation present. Normal inferior vena cava with normal inspiratory collapse consistent with estimated right atrial pressure of 5 mmHg. There is no pericardial effusion. CONCLUSIONS -------- 1. Sinus rhythm. 2. Mild mitral regurgitation is present. 3. Mild tricuspid regurgitation present. 4. Right ventricular systolic pressure is normal at < 35 mmHg. 5. The pulmonic valve was not well visualized. 6. There is no pulmonic regurgitation present. 7. Normal inferior vena cava with normal inspiratory collapse consistent with estimated right atrial pressure of 5 mmHg. 8. There is no pericardial effusion. 9. This was a technically good study. 10. There is borderline concentric left ventricular hypertrophy. 11. Overall left ventricular systolic function is normal with, an EF between 55 - 60 %. 12. Normal LA size by volume 22+/-6 ml/m2. 13. Mobile interatrial septum. 14. There is mild aortic valve sclerosis. 15. Peak/mean gradient across the Aortic Valve is 16.63mmHg / 6.82mmHg. 16. Mild mitral annular calcification present. BOARDER HAND: Jennifer Alexis RDCS
--- NOTE | 2017-02-07 13:59 | P.PN ---
Subjective This is a 76-year-old female, a patient of Dr. Perdomo. She has a known past medical history of hypertension, hyperlipidemia and thyroid cancer with thyroidectomy. She was initially in the hospital on January 27 due to a possible viral illness as well as possible angioedema due to CARSON inhibitor. Patient reports that she was doing well on Friday and then Friday she started to have lower abdominal cramping and then the diarrhea started. She had multiple episodes of watery stools. I'm one of the times to the restroom patient felt weak and may have passed out landing on the floor. She reports that she passed out for possibly a second. Did not injure herself. Patient was also having some shortness of breath. Called EMS. Is brought into the hospital for further evaluation and treatment. In the emergency room she had another couple of bouts of diarrhea and then developed blood in the stools. And then was having bowel movements without stool and just blood. She was then brought to the ICU from the fourth floor. Started on IV Protonix. GI consult was placed. Her hemoglobin dropped from 13-11.5. Stool was positive for occult blood C. diff was negative. There was questionable UTI on admission but likely urinalysis was contaminated by the loose stools. And she was initially started on Rocephin. Repeat urinalysis is negative. EKG shows normal sinus rhythm chest x-ray was negative CAT scan of the brain and neck shows no acute changes. White count on admission was elevated at 22.5 and has come down to 13.5. Patient seen by GI service to not planning on any endoscopy at this point likely they felt that patient likely has colitis possibly ischemic versus infectious. They recommended continuing antibiotics for now. Patient denies any chest pain. Denies any nausea or vomiting. Denies any burning with urination. She does report that she still feels that there is some swelling in the bottom lip. But still better than when she was in the hospital on the last mission. Dr. Martins has been consulted for ICU management. We'll also check a echo and carotid. 02/07/2017 patient's computed tomography scan of the abdomen and pelvis did reveal evidence of colitis. Could be possibly ischemic colitis. She is had no further bowel movements or bloody stools since yesterday afternoon. Hemoglobin 10.7. Her aspirin was also placed on hold. Awaiting echo results. Awaiting infectious disease consult. Patient still having some belly discomfort but improved since yesterday Objective - Vital Signs Vital signs: Vital Signs Temp 97.3 F L 02/07/17 12:03 Pulse 79 02/07/17 12:03 Resp 18 02/07/17 12:03 BP 110/57 02/07/17 12:03 Pulse Ox 94 L 02/07/17 13:18 Intake & Output 02/06/17 02/07/17 02/07/17 18:59 06:59 18:59 Intake Total 1100 937 622 Output Total 300 Balance 800 937 622 Weight 74.4 kg Intake: IV 1100 700 Sodium Chloride 0.9% 1, 1100 700 000 ml @ 100 mls/hr IV . Q10H STA Rx#:[id number] Oral 237 622 Output: Urine 300 Other: Voiding Method Toilet Toilet Toilet # Voids 1 3 # Bowel Movements 1 1 - Exam Head normocephalic Neck supple Lungs clear to auscultation bilaterally no wheezing or crackles Heart regular rate and rhythm S1-S2, no rub or gallop Abdomen is soft and lower abdominal tenderness Extremities no edema Neuro alert and orientated to 3 - Labs CBC & Chem 7: 02/07/17 06:08 02/07/17 06:08 Labs: Abnormal Lab Results - Last 24 Hours (Table) 02/07/17 02/07/17 Range/Units 06:08 06:08 WBC 10.7 H (3.8-10.6) k/uL RBC 3.69 L (3.80-5.40) m/uL Hgb 10.7 L (11.4-16.0) gm/dL Hct 32.8 L (34.0-46.0) % Neutrophils # 8.5 H (1.3-7.7) k/uL BUN 6 L (7-17) mg/dL Calcium 7.9 L (8.4-10.2) mg/dL Total Protein 5.1 L (6.3-8.2) g/dL Albumin 2.9 L (3.5-5.0) g/dL Microbiology - Last 24 Hours (Table) 02/06/17 10:46 Urine Culture - Preliminary Urine,Clean Catch Assessment and Plan Plan: 1. Syncopal episode likely secondary to dehydration and diarrhea. continue with telemetry monitoring. EKG showed normal sinus rhythm. Also check an echo and carotid Doppler. Computed tomography scan of the brain and neck shows no acute changes. Carotid Doppler no significant hemodynamic stenosis. Echocardiogram pending 2. Acute lower GI bleed: Evaluated by GI service. They suspect ischemic colitis versus possible infectious colitis. Stool for C. diff negative. Stool for occult blood is positive. And hemoglobin is 11.5. Patient currently on Rocephin. Continue IV fluid hydration. Last colonoscopy was in 2013 with a polyp removed. GI is in for outpatient colonoscopy. Hemoglobin did drop to 10.7. Continue to monitor. Patient has had no further bowel movements since yesterday afternoon. Computed tomography scan of the abdomen and pelvis did reveal colitis. Likely this is ischemic colitis. We'll continue to monitor 3. Dehydration improved with IV fluids 4. Possible UTI on admission ruled out likely urinalysis contaminated by stool. Repeat urinalysis negative 5. Leukocytosis on admission possibly related to colitis. We'll await infectious disease recommendations 6. Recent admission with angioedema due to CARSON inhibitor and possible viral illness. We'll await infectious disease evaluation. They had ordered labs on the last admission. 7. History of thyroid cancer status post thyroidectomy. Continue Synthroid. Thyroid levels normal on last admission 8. Generalized anxiety disorder and use Xanax as needed 9. Hyperlipidemia continue statin 10. Essential hypertension: Continue the verapamil GI prophylaxis Protonix and DVT prophylaxis SCD Anticipate discharge home tomorrow I performed an examination of the patient and discussed their management with the physician Threader. I have reviewed the Physician Threader's notes and agree with the documented findings and plan of care
[2017-02-07] MEDS: metroNIDAZOLE 500 MG TAB PO SCH ×2 (16:45→20:04)
--- NOTE | 2017-02-07 17:08 | CONS ---
DATE OF CONSULTATION: 02/07/2017 REASON FOR CONSULTATION: Colitis. HISTORY OF PRESENT ILLNESS: The patient is a 76-year-old female who was brought into the ER at [facility] on 02/05/2017 after the patient apparently had a dizzy spell and possibly passed out. The patient did not exactly remember the event and what happened, but she fell to the ground. The patient did feel sweaty and had some nausea. The patient also started complaining of some shortness of breath, for which EMS was called and the patient was brought here. At the [facility] ER the patient was evaluated by the ER physician. Initial workup included a chest x-ray and head and cervical spine CT which did not show any acute changes. The patient subsequently was admitted to the hospital for further workup; however, the patient started having diarrhea with blood in the stools. She had about 5 to 6 episodes per day, had some crampy lower abdominal pain. The intensity of the pain was about 5 to 6 out of 10 and no radiation. The patient does not have any high-grade fever during this admission but did have elevated white count of 22.5. It is down to 10.7 as of today. The patient had CT of the abdomen and pelvis that suggested a long segment of the large intestine from mid transverse colon to the descending colon and more involvement of the splenic flexure with concern about possible infectious colitis. She did have stool for C difficile that was negative. Stool cultures are currently pending. Patient is being treated with Rocephin and Imodium. ID was consulted for further recommendations regarding antibiotic therapy. REVIEW OF SYSTEMS: CONSTITUTIONAL: Positive for weakness. No high-grade fever. EYES: No complaint. ENT: No complaint. RESPIRATORY: As per HPI. CARDIOVASCULAR: No complaint. GENITOURINARY: No complaint. GASTROINTESTINAL: As per HPI. MUSCULOSKELETAL: No complaint. INTEGUMENTARY: No complaint. PSYCHOLOGIC: No complaint. ENDOCRINE: No complaint. NEUROLOGIC: No complaint. Her past medical history is significant for: 1. Hypertension. 2. Hyperlipidemia. 3. Osteoarthritis. 4. Hypothyroidism. 5. Pneumonia. 6. Gastroesophageal reflux disease. 7. History of thyroid cancer. PAST SURGICAL HISTORY: 1. Back surgery. 2. Bladder surgery. 3. Hysterectomy. 4. Cervical spine surgery. 5. Left total knee. 6. Right hip replacement. 7. Bilateral rotator cuff repair. 8. Thyroidectomy. 9. Bilateral cataract surgery. SOCIAL HISTORY: Remote history of smoking. Occasionally drinks alcohol. No drug use. FAMILY HISTORY: Father with history of prostate cancer; at the age of 92. ALLERGIES: SULFA. Medications current include: 1. Tylenol. 2. [place]. 3. Ventolin. 4. Xanax. 5. Lipitor. 6. Rocephin 1 gram daily. 7. Synthroid. 8. Narcan. 9. Zofran. 10. Protonix. 11. Paxil. 12. Verapamil. 13. Ambien. On examination, her blood pressure is 138/64 with a pulse of 64, temperature 98.1. She is 96% on room air. No fever has been recorded during this admission. General description is an elderly female lying in the bed in no distress. No tachypnea or accessory muscle of respiration use. HEENT examination shows slight pallor. No scleral icterus. Oral mucous membrane is moist. NECK: Trachea is central. No thyromegaly. LUNGS: Unlabored breathing. Clear to auscultation anteriorly. No wheeze or crackle. HEART: S1, S2. Regular rate and rhythm. No added sound. ABDOMEN: Soft. She is very mildly tender in the lower quadrant area. No guarding. No rigidity. No organomegaly. EXTREMITIES: No edema of the feet. SKIN EXAMINATION: No rash or mass palpable. Neurologically patient is awake, alert, oriented x3. Mood and affect normal. LABS: Hemoglobin is 10.7, white count 10.7 with a BUN of 6, creatinine 0.79. UA has been negative. Stool for occult blood was positive. Stool for C difficile is negative. Stool cultures are currently pending. DIAGNOSTIC IMPRESSION AND PLAN: Patient admitted to hospital with a syncopal episode in a patient who was frequently having diarrhea with bloody stools with evidence of colitis involving the mid transverse colon to descending colon and more involvement in the splenic flexure, likely pointing towards an ischemic colitis, as ( ) showed area of the large intestine. Clinical suspicion is low for an infectious colitis. Stool for C difficile is negative. Stool cultures are so far negative. The patient has no fever. Elevated white count is more likely related to the ischemic colitis. The patient did show some improvement with hydration and the IV Rocephin. PLAN: 1. Discontinue the Imodium. 2. We will continue the patient on Rocephin; however, will add Flagyl. If the patient continues to improve, she will be able to finish therapy with p.o. Ceftin and Flagyl for at least 10 more days. The patient may benefit from further workup, including colonoscopy and vascular studies of the GI tract to prevent future episodes of ischemic colitis. Thank you for this consultation. Will follow this patient along with you. PIOTRD
[2017-02-07] MEDS: PARoxetine 20 MG TAB PO SCH (20:03)
[2017-02-07] MEDS: ZOLPIDEM 5 MG TAB PO PRN (22:25)
[2017-02-08] MEDS: LEVOTHYROXINE 100 MCG TAB PO SCH (06:04)
[2017-02-08 06:25] LABS: Basophils % (A) 0 %; CH 28.1; CHCM 32.8; Eosinophils # (A) 0.2 k/uL (0-0.7); Eosinophils % (A) 3 %; HCT 34.4 % (34.0-46.0); HDW 2.51; HGB 11.3 gm/dL (11.4-16.0); Luc % (Auto) 1; Lymphocytes # (A) 1.3 k/uL (1.0-4.8); Lymphocytes % (A) 17 %; MCH 28.4 pg (25.0-35.0); MCV 86.2 fL (80.0-100.0); Mean Platelet Volume 7.5; Monocytes # (A) 0.4 k/uL (0-1.0); Monocytes % (A) 5 %; Neutrophils # (A) 5.8 k/uL (1.3-7.7); Neutrophils % (A) 74 %; RBC 3.99 m/uL (3.80-5.40); RDW 15.4 % (11.5-15.5); WBC 7.8 k/uL (3.8-10.6)
[2017-02-08 06:37] LABS: ALT 27 U/L (9-52); AST 18 U/L (14-36); Alkaline Phosphatase 79 U/L (38-126); Anion Gap 7 mmol/L; Blood Urea Nitrogen 5 mg/dL (7-17); Calcium 8.4 mg/dL (8.4-10.2); Carbon Dioxide 26 mmol/L (22-30); Chloride 103 mmol/L (98-107); Glucose 80 mg/dL (74-99); Non-African American GFR(MDRD) >60 (>60 ml/min/1.73 sqM); Sodium 136 mmol/L (137-145); Total Bilirubin 0.4 mg/dL (0.2-1.3); Total Protein 5.5 g/dL (6.3-8.2)
[2017-02-08] MEDS: VERAPAMIL SR 240 MG TABLET.ER PO SCH (09:01)
[2017-02-08] MEDS: ATORVASTATIN 40 MG TAB PO SCH (09:01)
[2017-02-08] MEDS: PANTOPRAZOLE 40 MG/10 ML VIAL IV SCH (09:01)
[2017-02-08] MEDS: metroNIDAZOLE 500 MG TAB PO SCH ×3 (09:01→20:29)
--- NOTE | 2017-02-08 09:30 | P.PN ---
Subjective This is a 76-year-old female, a patient of Dr. Perdomo. She has a known past medical history of hypertension, hyperlipidemia and thyroid cancer with thyroidectomy. She was initially in the hospital on January 27 due to a possible viral illness as well as possible angioedema due to CARSON inhibitor. Patient reports that she was doing well on Friday and then Friday she started to have lower abdominal cramping and then the diarrhea started. She had multiple episodes of watery stools. I'm one of the times to the restroom patient felt weak and may have passed out landing on the floor. She reports that she passed out for possibly a second. Did not injure herself. Patient was also having some shortness of breath. Called EMS. Is brought into the hospital for further evaluation and treatment. In the emergency room she had another couple of bouts of diarrhea and then developed blood in the stools. And then was having bowel movements without stool and just blood. She was then brought to the ICU from the fourth floor. Started on IV Protonix. GI consult was placed. Her hemoglobin dropped from 13-11.5. Stool was positive for occult blood C. diff was negative. There was questionable UTI on admission but likely urinalysis was contaminated by the loose stools. And she was initially started on Rocephin. Repeat urinalysis is negative. EKG shows normal sinus rhythm chest x-ray was negative CAT scan of the brain and neck shows no acute changes. White count on admission was elevated at 22.5 and has come down to 13.5. Patient seen by GI service to not planning on any endoscopy at this point likely they felt that patient likely has colitis possibly ischemic versus infectious. They recommended continuing antibiotics for now. Patient denies any chest pain. Denies any nausea or vomiting. Denies any burning with urination. She does report that she still feels that there is some swelling in the bottom lip. But still better than when she was in the hospital on the last mission. Dr. Martins has been consulted for ICU management. We'll also check a echo and carotid. On 02/08/2017 patient is still complaining of abdominal pain she had multiple episodes of diarrhea yesterday she had no bowel movements yet today. Patient is being treated for acute colitis with IV Rocephin and IV Flagyl she was seen by Dr. Styles infectious disease. Objective - Vital Signs Vital signs: Vital Signs Temp 97.5 F L 02/08/17 09:05 Pulse 76 02/08/17 09:05 Resp 18 02/08/17 09:05 BP 119/60 02/08/17 09:05 Pulse Ox 97 02/08/17 09:05 Intake & Output 02/07/17 02/08/17 02/08/17 18:59 06:59 18:59 Intake Total 622 Output Total 250 Balance 622 -250 Weight 74.2 kg Intake: Oral 622 Output: Urine 250 Other: Voiding Method Toilet Toilet Toilet # Voids 1 1 - Exam In general patient is alert and oriented 3 in no apparent distress HEENT head normocephalic and atraumatic Neck is supple no JVD no goiter no lymphadenopathy Chest exam reveals a few scattered crackles no wheezing Cardiac exam reveals regular heart sounds S1 and S2 no gallops no murmurs Abdomen is soft with mild diffuse tenderness no organomegaly with normal bowel sounds Extremity exam reveals no edema no cyanosis or clubbing - Labs CBC & Chem 7: 02/08/17 05:59 02/08/17 05:59 Labs: Abnormal Lab Results - Last 24 Hours (Table) 02/08/17 02/08/17 Range/Units 05:59 05:59 Hgb 11.3 L (11.4-16.0) gm/dL Sodium 136 L (137-145) mmol/L BUN 5 L (7-17) mg/dL Total Protein 5.5 L (6.3-8.2) g/dL Albumin 3.2 L (3.5-5.0) g/dL Microbiology - Last 24 Hours (Table) 02/06/17 15:55 Blood Culture - Preliminary Blood No Growth after 24 hours 02/06/17 10:46 Urine Culture - Final Urine,Clean Catch Assessment and Plan Plan: 1. Syncopal episode likely secondary to dehydration and diarrhea. continue with telemetry monitoring. EKG showed normal sinus rhythm. Also check an echo and carotid Doppler. Computed tomography scan of the brain and neck shows no acute changes. Carotid Doppler no significant hemodynamic stenosis. Echocardiogram pending 2. Acute lower GI bleed: Evaluated by GI service. They suspect ischemic colitis versus possible infectious colitis. Stool for C. diff negative. Stool for occult blood is positive. And hemoglobin is 11.5. Patient currently on Rocephin. Continue IV fluid hydration. Last colonoscopy was in 2013 with a polyp removed. GI is in for outpatient colonoscopy. Hemoglobin did drop to 10.7. Continue to monitor. Patient has had no further bowel movements since yesterday afternoon. Computed tomography scan of the abdomen and pelvis did reveal colitis. Likely this is ischemic colitis. We'll continue to monitor 3. Dehydration improved with IV fluids 4. Possible UTI on admission ruled out likely urinalysis contaminated by stool. Repeat urinalysis negative 5. Leukocytosis on admission possibly related to colitis. We'll await infectious disease recommendations 6. Recent admission with angioedema due to CARSON inhibitor and possible viral illness. We'll await infectious disease evaluation. They had ordered labs on the last admission. 7. History of thyroid cancer status post thyroidectomy. Continue Synthroid. Thyroid levels normal on last admission 8. Generalized anxiety disorder and use Xanax as needed 9. Hyperlipidemia continue statin 10. Essential hypertension: Continue the verapamil GI prophylaxis Protonix and DVT prophylaxis SCD Patient is complaining still of abdominal pain. Continue was current management with IV antibiotic possible discharge to home tomorrow
[2017-02-08 12:09] LABS: Basophils % (A) 0 %; CH 27.9; CHCM 32.2; Eosinophils # (A) 0.2 k/uL (0-0.7); Eosinophils % (A) 2 %; HCT 33.8 % (34.0-46.0); HDW 2.46; HGB 11.1 gm/dL (11.4-16.0); Luc % (Auto) 1; Lymphocytes % (A) 13 %; MCH 28.6 pg (25.0-35.0); MCHC 32.8 g/dL (31.0-37.0); MCV 87.1 fL (80.0-100.0); Mean Platelet Volume 7.2; Monocytes # (A) 0.3 k/uL (0-1.0); Monocytes % (A) 4 %; Neutrophils # (A) 6.2 k/uL (1.3-7.7); Neutrophils % (A) 80 %; RBC 3.88 m/uL (3.80-5.40); RDW 15.1 % (11.5-15.5); WBC 7.7 k/uL (3.8-10.6); WBC (Perox) 8.13
[2017-02-08] MEDS: HYDROcodone/APAP 7.5-325MG 1 EACH TAB PO PRN (13:37)
[2017-02-08] MEDS: PARoxetine 20 MG TAB PO SCH (20:29)
[2017-02-08] MEDS: ALPRAZolam 0.25 MG TAB PO PRN (21:21)
[2017-02-08] MEDS: ZOLPIDEM 5 MG TAB PO PRN (22:18)
[2017-02-09 05:14] VITALS: RESP 18
[2017-02-09] MEDS: LEVOTHYROXINE 100 MCG TAB PO SCH (06:45)
--- NOTE | 2017-02-09 07:02 | P.PN ---
Subjective 76-year-old female admitted with weakness, fall, crampy abdominal pain and bloody diarrhea. Computed tomography scan abdomen and pelvis reported segment of colitis possible infectious possible vs inflammatory. No further episodes of bloody diarrhea. Minimal abdominal pain. Tolerating diet. Hemoglobin 11.3. Was also evaluated by infectious disease and continues to receive antibiotics. C.difficile was negative. History of iron deficiency anemia. Last colonoscopy May 2014, had 1 polyp removed. Last EGD December 2014. Objective - Vital Signs Vital signs: Vital Signs Temp 97.5 F L 02/08/17 09:05 Pulse 76 02/08/17 09:05 Resp 18 02/08/17 09:05 BP 119/60 02/08/17 09:05 Pulse Ox 97 02/08/17 09:05 Intake & Output 02/07/17 02/08/17 02/08/17 18:59 06:59 18:59 Intake Total 622 Output Total 250 Balance 622 -250 Weight 74.2 kg Intake: Oral 622 Output: Urine 250 Other: Voiding Method Toilet Toilet Toilet # Voids 1 1 - Exam General appearance: The patient is alert, oriented, in no acute distress. HET: Head is normocephalic and atraumatic. Pupils are equal and reactive. Oropharynx is clear without lesions. Neck: Supple without lymphadenopathy. Trachea midline. Heart: S1 S2. Lungs: No crackles or wheezes are heard. Abdomen: Soft, nontender, nondistended with bowel sounds. No peritoneal signs. No palpable organomegaly or masses. Extremities: Normal skin color and turgor. No cyanosis, rash, ulceration, clubbing, or edema. Radial and pedal pulses are 2/4 bilaterally. Neurological: No focal deficits. Strength and sensation are grossly intact. - Labs CBC & Chem 7: 02/08/17 11:50 02/08/17 05:59 Labs: Abnormal Lab Results - Last 24 Hours (Table) 02/08/17 02/08/17 Range/Units 05:59 05:59 Hgb 11.3 L (11.4-16.0) gm/dL Sodium 136 L (137-145) mmol/L BUN 5 L (7-17) mg/dL Total Protein 5.5 L (6.3-8.2) g/dL Albumin 3.2 L (3.5-5.0) g/dL Microbiology - Last 24 Hours (Table) 02/06/17 15:55 Blood Culture - Preliminary Blood No Growth after 24 hours 02/06/17 10:46 Urine Culture - Final Urine,Clean Catch Assessment and Plan Plan: Bloody diarrhea likely related to colitis, ischemic vs infectious, resolving. Agree with current management. Will F/U as outpatient and plan colonoscopy.
[2017-02-09 07:35] LABS: Basophils % (A) 0 %; CH 27.9; CHCM 32.3; Eosinophils # (A) 0.2 k/uL (0-0.7); Eosinophils % (A) 3 %; HCT 35.5 % (34.0-46.0); HGB 11.6 gm/dL (11.4-16.0); Luc # (Auto) 0.09; Luc % (Auto) 1; Lymphocytes # (A) 1.2 k/uL (1.0-4.8); Lymphocytes % (A) 18 %; MCH 28.4 pg (25.0-35.0); MCHC 32.7 g/dL (31.0-37.0); Mean Platelet Volume 7.1; Monocytes # (A) 0.5 k/uL (0-1.0); Monocytes % (A) 7 %; Neutrophils # (A) 4.9 k/uL (1.3-7.7); Neutrophils % (A) 71 %; RBC 4.08 m/uL (3.80-5.40); RDW 15.2 % (11.5-15.5); WBC 6.9 k/uL (3.8-10.6); WBC (Perox) 6.95
[2017-02-09 07:48] LABS: ALT 31 U/L (9-52); AST 20 U/L (14-36); Alkaline Phosphatase 82 U/L (38-126); Anion Gap 9 mmol/L; Blood Urea Nitrogen 5 mg/dL (7-17); Calcium 8.6 mg/dL (8.4-10.2); Carbon Dioxide 30 mmol/L (22-30); Chloride 100 mmol/L (98-107); Glucose 88 mg/dL (74-99); Non-African American GFR(MDRD) >60 (>60 ml/min/1.73 sqM); Potassium 3.9 mmol/L (3.5-5.1); Sodium 139 mmol/L (137-145); Total Bilirubin 0.4 mg/dL (0.2-1.3); Total Protein 5.6 g/dL (6.3-8.2)
[2017-02-09] MEDS: PANTOPRAZOLE 40 MG/10 ML VIAL IV SCH (09:16)
[2017-02-09] MEDS: metroNIDAZOLE 500 MG TAB PO SCH (09:16)
[2017-02-09] MEDS: VERAPAMIL SR 240 MG TABLET.ER PO SCH (09:17)
[2017-02-09] MEDS: ATORVASTATIN 40 MG TAB PO SCH (09:17)
[2017-02-09 09:43] VITALS: TEMP 97.7
--- NOTE | 2017-02-09 11:05 | P.DS ---
Providers Date of admission: 02/05/17 20:14 Expected date of discharge: 02/09/17 Attending physician: Emily Ho Consults: 02/05/17 20:15 Consult Physician Routine Consulting Provider: Juanito Mirza Consult Reason/Comments: uti, recent viral infection, diarrhea Do you want consulting provider notified?: Yes 02/06/17 03:14 Consult Physician Routine Consulting Provider: Kyree Morin Consult Reason/Comments: GIB Do you want consulting provider notified?: Yes 02/06/17 10:41 Consult Physician Routine Consulting Provider: Jame Martins Consult Reason/Comments: ICU management Do you want consulting provider notified?: Yes Primary care physician: Juana Borrero [facility] Hospital Course: Diagnoses on discharge: #1 Acute colitis and ischemic versus infectious. Awaiting colonoscopy for definitive diagnosis. Patient will follow-up with Dr. Garcia in 2 weeks for evaluation and arrangement for colonoscopy as outpatient. #2 syncopal episode likely secondary to dehydration and diarrhea #3 acute lower gastrointestinal bleeding. Resolved spontaneously likely related to colitis. Evaluated by gastroenterology during this admission and will have colonoscopy as outpatient for further evaluation. #4 recent admission for angioedema due to BRIGHT inhibitor was numbness and swelling in the lips and tongue patient should avoid Bright inhibitors. #5 history of thyroid cancer status post thyroidectomy maintained on Synthroid continue #6 hypertension well-controlled on current medication continue #7 hyperlipidemia #8 generalized anxiety disorder maintained on Xanax Hospital course: This is a 76-year-old female, a patient of Dr. Perdomo. She has a known past medical history of hypertension, hyperlipidemia and thyroid cancer with thyroidectomy. She was initially in the hospital on January 27 due to a possible viral illness as well as possible angioedema due to BRIGHT inhibitor. Patient reports that she was doing well on Friday and then Friday she started to have lower abdominal cramping and then the diarrhea started. She had multiple episodes of watery stools. I'm one of the times to the restroom patient felt weak and may have passed out landing on the floor. She reports that she passed out for possibly a second. Did not injure herself. Patient was also having some shortness of breath. Called EMS. Is brought into the hospital for further evaluation and treatment. In the emergency room she had another couple of bouts of diarrhea and then developed blood in the stools. And then was having bowel movements without stool and just blood. She was then brought to the ICU from the fourth floor. Started on IV Protonix. GI consult was placed. Her hemoglobin dropped from 13-11.5. Stool was positive for occult blood C. diff was negative. There was questionable UTI on admission but likely urinalysis was contaminated by the loose stools. And she was initially started on Rocephin. Repeat urinalysis is negative. EKG shows normal sinus rhythm chest x-ray was negative CAT scan of the brain and neck shows no acute changes. White count on admission was elevated at 22.5 and has come down to 13.5. Patient seen by GI service to not planning on any endoscopy at this point likely they felt that patient likely has colitis possibly ischemic versus infectious. They recommended continuing antibiotics for now. Patient denies any chest pain. Denies any nausea or vomiting. Denies any burning with urination. She does report that she still feels that there is some swelling in the bottom lip. But still better than when she was in the hospital on the last mission. Dr. Martins has been consulted for ICU management. We'll also check a echo and carotid. Initially patient was admitted to intensive care unit due to active bleeding subsequence E she was transferred to telemetry floor she did not require any red blood cell transfusion. She was seen by gastroenterology and infectious disease was maintained on IV Rocephin and IV Flagyl she improved gradually she was discharged home on 02/09/2017. She will follow-up with her primary care physician within 1 week she will also follow-up with Dr. aGrcia lepidopterist in 2 weeks. Patient Condition at Discharge: Fair Plan - Discharge Summary New Discharge Prescriptions: New Cefuroxime Axetil [Ceftin] 500 mg PO BID #20 tab metroNIDAZOLE [Flagyl] 500 mg PO TID tab Continue Atorvastatin [Lipitor] 40 mg PO DAILY Omeprazole [PriLOSEC] 20 mg PO HS Levothyroxine Sodium [Synthroid] 100 mcg PO DAILY PARoxetine HCL [Paxil] 40 mg PO HS HYDROcodone/APAP 7.5-325MG [[place] 7.5-325] 1 tab PO Q6HR PRN #30 PRN Reason: Pain ALPRAZolam [Xanax] 0.25 mg PO TID PRN PRN Reason: Anxiety/Insomnia Aspirin EC [Ecotrin Low Dose] 81 mg PO DAILY Verapamil Sr [Isoptin Sr] 240 mg PO DAILY Discharge Medication List Atorvastatin [Lipitor] 40 mg PO DAILY 02/21/16 [History] Levothyroxine Sodium [Synthroid] 100 mcg PO DAILY 01/21/17 [History] Omeprazole [PriLOSEC] 20 mg PO HS 01/21/17 [History] PARoxetine HCL [Paxil] 40 mg PO HS 01/26/17 [History] HYDROcodone/APAP 7.5-325MG [[place] 7.5-325] 1 tab PO Q6HR PRN #30 01/30/17 [Rx] ALPRAZolam [Xanax] 0.25 mg PO TID PRN 02/05/17 [History] Aspirin EC [Ecotrin Low Dose] 81 mg PO DAILY 02/05/17 [History] Verapamil Sr [Isoptin Sr] 240 mg PO DAILY 02/05/17 [History] Cefuroxime Axetil [Ceftin] 500 mg PO BID #20 tab 02/09/17 [Rx] metroNIDAZOLE [Flagyl] 500 mg PO TID tab 02/09/17 [Rx] Follow up Appointment(s)/Referral(s): Kyree Morin MD [STAFF PHYSICIAN] - 2 Weeks Jame Martins MD [STAFF PHYSICIAN] - 1 Week Juana Borrero MD [Primary Care Provider] - 1-2 days Ruperto Styles MD [STAFF PHYSICIAN] - 1 Week
[2017-02-09 11:37] VITALS: BP 128/59; PULSE 69
== END 2017-02-09 12:22 | disposition home or self-care (01) | DRG 394 ==
LOC: EC 17:52 → 4MS4W 20:14 → 6ICU 02-06 04:34 → 6SEL 02-06 17:20
PROVIDERS: ADMIT Internal Medicine; ATTEND Internal Medicine
DX: K55.9 Vascular disorder of intestine, unspecified (principal); D62 Acute posthemorrhagic anemia; J44.9 Chronic obstructive pulmonary disease, unspecified; N39.0 Urinary tract infection, site not specified; E86.0 Dehydration; E78.5 Hyperlipidemia, unspecified; E89.0 Postprocedural hypothyroidism; F32.9 Major depressive disorder, single episode, unspecified; F41.1 Generalized anxiety disorder; Z96.641 Presence of right artificial hip joint; K21.9 Gastro-esophageal reflux disease without esophagitis; I10 Essential (primary) hypertension; Z88.2 Allergy status to sulfonamides; Z79.899 Other long term (current) drug therapy; Z80.42 Family history of malignant neoplasm of prostate; Z85.850 Personal history of malignant neoplasm of thyroid; Z87.891 Personal history of nicotine dependence; Z79.82 Long term (current) use of aspirin
CPT/HCPCS: 36415; 70450; 71020; 72125; 74177; 80053; 81001; 81003; 82272; 82550; 82553; 83735; 84100; 84484; 85025; 85610; 85730; 86850; 86900; 86901; 87040; 87045; 87046; 87086; 87324; 89055; 93005; 93306; 93880; 94760; 96361; 96365; 99285

== ENCOUNTER 2017-02-19 10:54 | Day surgery (SDC) | payer MEDICARE, BC ==
[2017-02-19] MEDS ORDERED: LIDOCAINE 1% 20 ML VIAL (10MG/ML) FOR IV START INTRADERMA ONE (12:45)
[2017-02-19] MEDS ORDERED: LACTATED RINGERS 1,000 ML IV ONE (12:45)
[2017-02-19] MEDS ORDERED: LIDOCAINE 1% INJ 10MG/ML (20 ML MDV) ONE (13:04)
[2017-02-19] MEDS ORDERED: PROPOFOL 10 MG/ML 20 ML VIAL IV ONE (13:04)
--- NOTE | 2017-02-19 13:23 | P.PCN ---
Date of Procedure: 02/19/17 Preoperative Diagnosis: Postoperative Diagnosis: Procedure(s) Performed: Brief history: Patient is a pleasant 76-year-old white female, scheduled for an elective upper endoscopy as well as colonoscopy as a part of evaluation of abdominal pain, recent episode of acute bloody diarrhea for which she was hospitalized for 2 days. The rectum bleeding subsided however she continues to have cramping lower abdominal discomfort and some diarrhea. Procedure performed: Esophagogastroduodenoscopy with biopsy Colonoscopy Preoperative diagnosis: Epigastric pain Recent episode of acute bloody diarrhea 3 weeks ago Anesthesia: MAC Procedure: After informed consent was obtained from the patient was brought into the endoscopy unit and IV sedation was administered by anesthesia under continuous monitoring. Initially upper endoscopy was done. The Olympus GF 160 video endoscope was inserted inserted into the mouth and esophagus intubated without any difficulty and was gradually advanced into the stomach and duodenum and carefully examined. The bulb and second part of the duodenum appeared normal. The scope was then withdrawn into the stomach adequately insufflated with air and upon careful examination the antrum had scattered erosions and biopsies were done from this area. The body, cardia and fundus appeared normal. The scope was then withdrawn into the esophagus. The GE junction was located at 40 cm to the incisors. It appeared regular with no erythema erosions or ulcerations. Rest of the esophagus appeared normal. Patient tolerated the procedure well. At this time the patient continued to remain sedation. Initial digital rectal examination was normal. Olympus CF 160 video colonoscope was then inserted into the rectum and gradually advanced to the cecum without any difficulty. Careful examination was performed as the scope was gradually being withdrawn. The prep was excellent. The cecum, ascending colon, transverse colon, descending colon, sigmoid colon and rectum appeared normal. Retroflexion was performed in the rectum andgrade 2 internal hemorrhoidsre noted. Patient tolerated the procedure well. Impression: 1. Upper endoscopy revealed antral erosive gastritis but no evidence of esophagitis or peptic ulcer disease 2. Colonoscopy revealed normal-appearing colon from rectum to cecum with no evidence of colitis or colorectal neoplasia. Small internal hemorrhoids seen. Recommendations: Findings of this examination were discussed with the patient as well as her family. She was advised to follow with the biopsy results. Recent episode of acute bloody diarrhea was most likely infectious colitis versus ischemic colitis but has completely resolved. She was advised to be a high-fiber diet and take fiber supplements on a regular basis. Implants: Indications for Procedure: Operative Findings: Description of Procedure:
[2017-02-19 13:40] VITALS: PULSE 66; RESP 16
[2017-02-19 13:44] VITALS: BP 119/62
== END 2017-02-19 13:58 | disposition home or self-care (01) ==
LOC: ORWHC2ENDO 10:54
PROVIDERS: ATTEND Internal Medicine Gastroenterology
DX: K29.50 Unspecified chronic gastritis without bleeding (principal); K64.8 Other hemorrhoids; K21.9 Gastro-esophageal reflux disease without esophagitis; I10 Essential (primary) hypertension; E78.5 Hyperlipidemia, unspecified; E07.9 Disorder of thyroid, unspecified; F39 Unspecified mood [affective] disorder; Z79.891 Long term (current) use of opiate analgesic; Z79.82 Long term (current) use of aspirin; Z79.2 Long term (current) use of antibiotics; Z79.899 Other long term (current) drug therapy; Z88.2 Allergy status to sulfonamides; Z87.891 Personal history of nicotine dependence; R19.7 Diarrhea, unspecified
CPT/HCPCS: 88305; 88342; 45378; 43239; J2001; J2704

== ENCOUNTER → 2017-03-10 | Outpatient (CLI) | payer MEDICARE, BC | LOC: LABWHC1 12:22 | PROVIDERS: ATTEND Internal Medicine Endocrinology, Diabetes & Metabolism | DX: E89.0 Postprocedural hypothyroidism (principal) | CPT/HCPCS: 36415; 84443 ==

== ENCOUNTER → 2017-05-12 | Outpatient (CLI) | payer MEDICARE, BC ==
--- NOTE | 2017-05-12 15:54 | NM ---
EXAMINATION TYPE: NM hepatobiliary w EF DATE OF EXAM: 05/12/2017 COMPARISON: CT abdomen pelvis dated 02/06/2017 HISTORY: Abdominal pain with concern for chronic cholecystitis. TECHNIQUE: After the intravenous administration of 5.2 mCi Tc 99m Mebrofenin hepatobiliary scintigrap hy is performed. Immediate images post injection. FINDINGS: There is satisfactory initial accumulation of tracer by the liver. The gallbladder is visualized wit hin 6 minutes. The small bowel activity is noted within 34 minutes. At one hour 8 ounces of oral en sure plus is given to mimic CCK and gallbladder ejection fraction is calculated at 0 %, grossly decre ased. There is no scintigraphic evidence of cystic or common bile duct obstruction to suggest acute c holecystitis or chronic cholecystitis. Biliary dyskinesia is present. IMPRESSION: 1. Biliary dyskinesia with severely abnormal ejection fraction of 0%. 2. No evidence of acute or chronic cholecystitis.
== END ==
LOC: RADNMMAIN 12:54
PROVIDERS: ATTEND Surgery
DX: K82.8 Other specified diseases of gallbladder (principal)
CPT/HCPCS: 78226; A9537

== ENCOUNTER 2017-08-19 10:33 | Emergency (ER) | payer MEDICARE, BC ==
[2017-08-19] MEDS ORDERED: AMPICILLIN-SULBACTAM 3 GM in SODIUM CHLORIDE 0.9% 100 ML IVPB STA (11:26)
--- NOTE | 2017-08-19 12:35 | ED ---
General Adult HPI - General Chief complaint: Skin/Abscess/Foreign Body Stated complaint: Cat bite/hand swollen Time Seen by Provider: 08/19/17 11:17 Source: patient Mode of arrival: ambulatory Limitations: no limitations - History of Present Illness Initial comments: This 77-year-old white female relates that she obtained a cat bite 2 days ago. She apparently was brushing her cat when the cat bit her and her right posterior hand. She developed some slight redness yesterday and was seen at her primary care physician's office. They gave her a tetanus prophylaxis and started her on some Augmentin. She states that the redness and pain increased today so she presents for evaluation to the ER. She denies any fevers or chills. There is no lymphangitis. She does complain of some pain with moving her fingers and wrist. No other complaints or modifying factors. - Related Data Home Medications Medication Instructions Recorded Confirmed Atorvastatin [Lipitor] 40 mg PO DAILY 02/21/16 08/19/17 ALPRAZolam [Xanax] 0.25 mg PO TID PRN 02/05/17 08/19/17 Aspirin EC [Ecotrin Low Dose] 81 mg PO HS 02/05/17 08/19/17 Verapamil Sr [Isoptin Sr] 240 mg PO DAILY 02/05/17 08/19/17 Baclofen 10 mg PO DAILY PRN 05/28/17 08/19/17 Levothyroxine Sodium [Synthroid] 75 mcg PO DAILY 05/28/17 08/19/17 Lisinopril [Zestril] 5 mg PO HS 05/28/17 08/19/17 Omeprazole 40 mg PO HS 05/28/17 08/19/17 HYDROcodone/APAP 7.5-325MG [[place] 0.5 - 1 tab PO Q6HR PRN 07/01/17 08/19/17 7.5-325] Amoxic-Pot Clav 875-125Mg 1 tab PO Q12HR 08/19/17 08/19/17 [Augmentin 875-125] Docusate [Colace] 100 mg PO BID PRN 08/19/17 08/19/17 FLUoxetine HCL [PROzac] 40 mg PO HS 08/19/17 08/19/17 Allergies Allergy/AdvReac Type Severity Reaction Status Date / Time Sulfa (Sulfonamide Allergy Unknown Verified 08/19/17 11:14 Antibiotics) Childhood Review of Systems ROS Statement: Those systems with pertinent positive or pertinent negative responses have been documented in the HPI. ROS Other: All systems not noted in ROS Statement are negative. Past Medical History Past Medical History: Cancer, GERD/Reflux, Hyperlipidemia, Hypertension, Osteoarthritis (OA), Pneumonia, Thyroid Disorder Additional Past Medical History / Comment(s): HX OF ABD PAIN, BLOATING, HX THYROID CA, HEART MURMUR, SPINAL STENOSIS, PAST HX iron deficiency anemia. hx migraines, hx ulcer, hx hiatal hernia, History of Any Multi-Drug Resistant Organisms: None Reported Past Surgical History: Appendectomy, Back Surgery, Bladder Surgery, Cholecystectomy, Hysterectomy, Joint Replacement, Orthopedic Surgery Additional Past Surgical History / Comment(s): CERVICAL SURGERY. TOTAL LT KNEE AND RT HIP replacement, SAVANNA ROTATOR CUFF REPAIR, THYROIDECTOMY. EXC SAVANNA CATARACTS. Bladder suspension, Past Anesthesia/Blood Transfusion Reactions: Motion Sickness, Postoperative Nausea & Vomiting (PONV) Additional Past Anesthesia/Blood Transfusion Reaction / Comment(s): DEVELOPED PNEUMONIA AFTER KNEE REPLACED. Past Psychological History: Anxiety Smoking Status: Former smoker Past Alcohol Use History: None Reported Past Drug Use History: None Reported - Past Family History Father Family Medical History: Cancer Additional Family Medical History / Comment(s): Father had prostate cancer. He at the age of 92 yrs. Mother Family Medical History: No Reported History Additional Family Medical History / Comment(s): . General Exam Limitations: no limitations General appearance: alert, in no apparent distress Extremities exam: Present: tenderness (There is tenderness noted to the mid dorsal hand. There is some slight erythema identified. There is no swelling noted. There is 2 small puncture gonzáles noted. There is some pain with range of motion of the index middle and ring fingers as well as the wrist. Overall, strength is intact. There is good capillary refill and radial pulses.) Skin exam: Present: other (There is mild erythema noted to the dorsal aspect of the right hand with 2 puncture gonzáles. No lymphangitis noted. No swelling identified.) Course Vital Signs 08/19/17 10:50 Temperature 98.3 F Pulse Rate 70 Respiratory 20 Rate Blood Pressure 163/77 O2 Sat by Pulse 96 Oximetry Medical Decision Making - Medical Decision Making The patient was seen and examined. She did receive a dose of Unasyn intravenously. It is felt as though she should continue with the Augmentin. She is only been on this for one day. Her symptoms, at this time, appear fairly mild. It is felt as though she is still stable for outpatient treatment but return parameters are discussed. Disposition Clinical Impression: Cat bite, Cellulitis Disposition: HOME SELF-CARE Condition: Good Instructions: Animal Bite (ED), Cellulitis (ED) Additional Instructions: Please follow-up with her doctor on Friday as scheduled but return to the emergency department sooner if symptoms do worsen. Referrals: Juana Borrero MD [Primary Care Provider] - 08/22/17 Time of Disposition: 12:35
[2017-08-19 13:12] VITALS: BP 137/65; PULSE 62; RESP 16; TEMP 97.7
== END 2017-08-19 13:24 | disposition home or self-care (01) ==
LOC: EC 10:33
DX: L03.113 Cellulitis of right upper limb (principal); K21.9 Gastro-esophageal reflux disease without esophagitis; E78.5 Hyperlipidemia, unspecified; I10 Essential (primary) hypertension; Z85.850 Personal history of malignant neoplasm of thyroid; Z87.891 Personal history of nicotine dependence; Z79.82 Long term (current) use of aspirin; Z79.899 Other long term (current) drug therapy; Z88.2 Allergy status to sulfonamides; W55.01XA Bitten by cat, initial encounter
CPT/HCPCS: 99283; 96365; J0295

== ENCOUNTER → 2017-08-27 | Outpatient (CLI) | payer MEDICARE, BC ==
[2017-08-27 16:05] LABS: Basophils % (A) 0 %; Eosinophils # (A) 0.1 k/uL (0-0.7); Eosinophils % (A) 1 %; HCT 35.6 % (34.0-46.0); HGB 11.3 gm/dL (11.4-16.0); Lymphocytes # (A) 1.7 k/uL (1.0-4.8); Lymphocytes % (A) 24 %; MCH 27.9 pg (25.0-35.0); MCHC 31.7 g/dL (31.0-37.0); Mean Platelet Volume 8.1; Monocytes # (A) 0.3 k/uL (0-1.0); Monocytes % (A) 5 %; Neutrophils # (A) 4.9 k/uL (1.3-7.7); Neutrophils % (A) 68 %; Platelet Count 260 k/uL (150-450); RBC 4.05 m/uL (3.80-5.40); RDW 14.8 % (11.5-15.5); WBC 7.2 k/uL (3.8-10.6)
== END | disposition home or self-care (01) ==
LOC: LABWHC1 15:29
PROVIDERS: ATTEND Physician Assistant
DX: D64.9 Anemia, unspecified (principal)
CPT/HCPCS: 36415; 85025

== ENCOUNTER → 2017-10-17 | Outpatient (CLI) | payer MEDICARE, BC | END | disposition home or self-care (01) | LOC: LABWHC1 11:25 | PROVIDERS: ATTEND Internal Medicine Endocrinology, Diabetes & Metabolism | DX: C73 Malignant neoplasm of thyroid gland (principal); E89.0 Postprocedural hypothyroidism | CPT/HCPCS: 36415; 84443 ==

== ENCOUNTER → 2017-12-12 | Outpatient (CLI) | payer MEDICARE, BC ==
--- NOTE | 2017-12-12 11:15 | CT ---
EXAMINATION TYPE: CT sinus wo con DATE OF EXAM: 12/12/2017 COMPARISON: NONE HISTORY: Chronic sinusitis CT DLP: 590.1 mGycm. Automated Exposure Control for Dose Reduction was Utilized. TECHNIQUE: CT scan of the sinuses is performed without contrast, axial images are obtained, coronal r eformatted images are also reviewed. FINDINGS: The paranasal sinuses including the frontal, ethmoid, sphenoid, and maxillary sinuses bila terally are remarkable for extensive inflammatory change in the left maxillary sinus which is somewha t lobular in configuration, difficult to exclude an underlying lying polyp or mucus retention cyst, o nly minimal inflammatory change in the dependent portion of the right maxillary sinus. The ostiomeat al complex is patent bilaterally on the coronal images. The globes are intact bilaterally. IMPRESSION: Findings greatest in the left maxillary sinus as described
== END ==
LOC: RADCTMAIN 09:06
PROVIDERS: ATTEND Otolaryngology
DX: J34.89 Other specified disorders of nose and nasal sinuses (principal); J32.9 Chronic sinusitis, unspecified
CPT/HCPCS: 70486

== ENCOUNTER → 2017-12-17 | Outpatient (CLI) | payer MEDICARE, BC ==
--- NOTE | 2017-12-17 15:24 | US ---
EXAMINATION TYPE: US thyroid st tissue head/neck DATE OF EXAM: 12/17/2017 COMPARISON: 04/03/2016 CLINICAL HISTORY: C73 Malignant neoplasm of thyroid gland. GLAND SIZE: Right Lobe: Surgically absent cm Left Lobe: Surgically absent cm Bilateral neck scanned, no evidence of lymphadenopathy. IMPRESSION: Total thyroidectomy without evidence for residual thyroid tissue or mass.
[2017-12-18 02:13] LABS: Thyroglobulin 1.32 ng/mL (1.60-59.90)
== END | disposition home or self-care (01) ==
LOC: RADUSWWP 14:50
PROVIDERS: ATTEND Internal Medicine Endocrinology, Diabetes & Metabolism
DX: C73 Malignant neoplasm of thyroid gland (principal)
CPT/HCPCS: 36415; 76536; 84432; 84443; 86800

== ENCOUNTER → 2017-12-23 | Outpatient (CLI) | payer MEDICARE, BC ==
[2017-12-23 11:58] LABS: HCT 35.8 % (34.0-46.0); HGB 11.3 gm/dL (11.4-16.0); MCH 27.8 pg (25.0-35.0); MCHC 31.6 g/dL (31.0-37.0); Mean Platelet Volume 7.4; Platelet Count 298 k/uL (150-450); RBC 4.07 m/uL (3.80-5.40); RDW 15.2 % (11.5-15.5); WBC 6.4 k/uL (3.8-10.6)
[2017-12-23 12:07] LABS: Partial Thromboplastin Time 23.2 sec (22.0-30.0); Prothrombin Time 9.5 sec (9.0-12.0)
== END | disposition home or self-care (01) ==
LOC: LABPAT 10:59
PROVIDERS: ATTEND Otolaryngology
DX: Z01.812 Encounter for preprocedural laboratory examination (principal); J01.01 Acute recurrent maxillary sinusitis
CPT/HCPCS: 36415; 85027; 85610; 85730

== ENCOUNTER 2017-12-29 10:33 | Inpatient (IN) | payer MEDICARE, BC ==
[2017-12-24 14:57] VITALS: BMI 28.9
--- NOTE | 2017-12-29 03:21 | HP ---
HISTORY AND PHYSICAL CHIEF COMPLAINT: Recurrent maxillary sinusitis. HISTORY OF PRESENT ILLNESS: This patient is a very pleasant 77-year-old female who was recently seen in my office for evaluation of recurrent episodes of sinus infection. The patient has been treated at least 4 to 5 times with multiple antibiotics for sinus infections in the past 6 to 8 months with no significant improvement. At the time that the patient was seen in my office, clinical examination revealed that she was still having significant thick mucopurulent drainage especially from the left maxillary sinus. A CT scan of the sinuses revealed that the patient had polypoid changes in the left maxillary sinus and it was therefore recommended that she undergo a left Mast-Rafi with left antrostomy under general anesthesia. PAST MEDICAL HISTORY: Past medical history reveals that she has: ALLERGIES: TO SULFA. CURRENT MEDICATIONS: Include Xanax, aspirin, baclofen, Prozac, [place] tablets, Singulair, omeprazole, Synthroid, verapamil and lisinopril. REVIEW OF SYSTEMS: Reveals chronic cardiovascular system is positive for hypertension and ASHD. Respiratory is negative. GASTROINTESTINAL: Positive for GERD, metabolic, endocrine system is positive for hypothyroidism and hypercholesterolemia. MUSCULOSKELETAL SYSTEM: System is positive for osteoarthritis. The remainder of the review of systems is essentially unremarkable. PHYSICAL EXAMINATION: This patient is a pleasant 77-year-old female who was alert and cooperative. HEENT examination: Patient is normocephalic. Tympanic membranes are normal. Middle ear spaces are free of any fluid or infection. Pupils equal, round, react to light and accommodation. Extraocular movements within normal limits. Intranasal examination reveals moderate to severe septal deviation with thick mucopurulent material coming from the left maxillary sinus and draining down the posterior pharyngeal wall. Palpation of the neck, cranial nerves 2 through 12 and the remainder of the head and neck exam are within normal limits CHEST/CARDIOVASCULAR: Both lung sommer are clear to percussion and auscultation. The patient is in regular sinus rhythm S1, S2 are present. No murmurs S3s or S4s. Peripheral pulses are bilaterally symmetrical and within normal limits. ABDOMEN: There is no evidence of any masses, megaly, or tenderness. Abdomen soft. SKIN is unremarkable. MUSCULOSKELETAL and NEUROLOGICAL within normal limits. Pelvic and rectal examination exam is deferred at this time because the patient has this done on a regular basis at her family physician's office. PREVIOUS SURGERIES: Include cataract surgery, cholecystectomy, appendectomy, abdominal hysterectomy, D and C x1. The patient is 3, 3, para 0, miscarriage. She has also had a hip and knee replacement, cervical fusion and bunionectomy. IMPRESSION: Chronic left maxillary sinusitis with polyps. PLAN: The patient is scheduled undergo a Mast-RAFI with left antrostomy under general anesthesia in the a.m. Attention RNs in the pre-surgical area. I have ordered for this patient to receive 1000 mg of Ofirmev and 2 grams of Ancef IV, both to be given once an intravenous line has been established. If the pharmacy department sends the sends any other or a different pre-surgical prophylactic antibiotic to the pre-surgical area for this patient, it should be returned to the pharmacy department and that order should be cancelled. Please make sure that the patient's account is credited appropriately. I have discussed the risks, benefits and alternative therapies for the above-mentioned procedure and for both sedation/analgesia as well as necessary blood product administration, if indicated, as they pertain to this patient. The patient has indicated his or her understanding and acceptance of the risks and procedures discussed. MMODL / IJN: [id number] /
[~2017-12-29 10:33] MED LIST: DEXAMETHASONE SOD PHOSPHATE 10 MG/ML 1 ML VIAL IV ONE; LIDOCAINE 1% 20 ML VIAL (10MG/ML) FOR IV START INTRADERMA PRN; MIDAZOLAM 2 MG/2 ML VIAL IV PRN; SCOPOLAMINE 1.5MG/72HR PATCH TRANSDERM ONE; ceFAZolin IN SWFI 2 GM/20 ML SYRINGE IVP ONE; metroNIDAZOLE-NS PMX 500 MG in SALINE 1 100ML.BAG IVPB ONE
[2017-12-29] MEDS ORDERED: LACTATED RINGERS 1,000 ML IV ONE (11:53)
[2017-12-29] MEDS ORDERED: ACETAMINOPHEN IV (For NPO) 1,000 MG in EMPTY BAG 1 BAG IVPB ONE (12:10)
[2017-12-29] MEDS: ONDANSETRON 4 MG/2 ML VIAL IVP PRN (12:12)
[2017-12-29] MEDS ORDERED: DEXAMETHASONE SOD PHOS (MDV) 100 MG/10 ML VIAL IVP ONE (12:12)
[2017-12-29] MEDS ORDERED: SUCCINYLCHOLINE CHLORIDE 100 MG/5 ML SYR IV ONE (12:37)
[2017-12-29] MEDS ORDERED: fentaNYL (PF) 50 MCG/ML 2 ML AMP ONE (12:37)
[2017-12-29] MEDS ORDERED: PROPOFOL 10 MG/ML 20 ML VIAL IV ONE (12:37)
[2017-12-29] MEDS ORDERED: LIDOCAINE 1% INJ 10MG/ML (20 ML MDV) ONE (12:37)
[2017-12-29] MEDS ORDERED: MIDAZOLAM 2 MG/2 ML VIAL ONE (12:37)
[2017-12-29] MEDS ORDERED: OXYMETAZOLINE 0.05% NASL SPRAY 1 SPRAY BOTTLE NASAL ONE (13:52)
[2017-12-29] MEDS ORDERED: BACITRACIN OINT 1 EACH PACKET TOPICAL ONE (13:53)
[2017-12-29] MEDS: fentaNYL (PF) 50 MCG/ML 2 ML AMP IV PRN ×2 (14:59→15:09)
[2017-12-29] MEDS ORDERED: BACLOFEN 10 MG TAB PO PRN (15:00)
[2017-12-29] MEDS ORDERED: ALPRAZolam 0.25 MG TAB PO PRN (15:00)
[2017-12-29] MEDS ORDERED: DOCUSATE 100 MG CAP PO PRN (15:00)
[2017-12-29] MEDS ORDERED: PANTOPRAZOLE 40 MG TABLET PO ONE (15:00)
[2017-12-29] MEDS ORDERED: HYDROcodone/APAP 7.5-325MG 1 EACH TAB PO PRN (15:00)
[2017-12-29] MEDS: LACTATED RINGERS 1,000 ML IV SCH ×2 (15:56→21:55)
[2017-12-29] MEDS: FLUoxetine HCL 20 MG CAP PO SCH (17:47)
[2017-12-29] MEDS: LEVOTHYROXINE 100 MCG TAB PO SCH (17:47)
[2017-12-29] MEDS: LISINOPRIL 5 MG TAB PO SCH (17:47)
[2017-12-29] MEDS: VERAPAMIL SR 240 MG TABLET.ER PO SCH (17:48)
[2017-12-29] MEDS ORDERED: ATORVASTATIN 40 MG TAB PO SCH (21:00)
[2017-12-29] MEDS ORDERED: MONTELUKAST 10 MG TAB PO SCH (21:00)
--- NOTE | 2017-12-29 21:52 | OP ---
OPERATIVE REPORT DATE OF SERVICE: 12/29/2017. PREOPERATIVE DIAGNOSIS: Chronic left maxillary sinusitis with left maxillary sinus filled with polyps. POSTOPERATIVE DIAGNOSIS: Chronic left maxillary sinusitis with left maxillary sinus filled with polyps. PROCEDURE: Left Mast-Rafi with left intranasal antrostomies. ANESTHESIA: General. SURGEON: Dr. Peterson. COMPLICATIONS: None. ESTIMATED BLOOD LOSS: Less than 25 mL. OPERATIVE PROCEDURE: The patient was placed on the operating table in supine position and after, uneventful induction and endotracheal intubation, satisfactory general anesthesia was obtained. Next, the patient was draped in the usual and customary fashion, following which exposure of the left upper buccal sulcus/canine fossae was obtained with retractors. Next, the mucous membrane was incised approximately a 5 to 7 mm above the gum line using a hot knife to incise the mucous membrane, soft submucosal tissue and down to the mucoperiosteal. Mucoperiosteum was then sharply incised using a #15 scalpel blade. Soft tissues were elevated slightly off of the anterior wall of the left maxillary sinus. Next, the sinus was entered using a 4 mm chisel and mallet in the usual fashion. This opening was subsequently enlarged by using various sizes of bone biting curettes. Immediately it was noted that the sinus was filled with pus and polyps. The sinus was then scraped with various types of angled curettes. The blood, pus, and polypoid material was then suctioned out of the maxillary sinus without any difficulty. Next, attention was directed toward making the antrostomy, and this was done by initially placing a cottonoid in the left naris just below the left inferior turbinate and leaving it in place for approximately 7 minutes. The cottonoid had been saturated with Afrin spray. After 7 minutes, the cottonoid was removed and a curved Jodie clamp was placed in the inferior meatus and punched through the medial wall of the left maxillary sinus, into the sinus itself. This opening was subsequently enlarged using various sizes of bone biting [place]. Next, the sinus itself was dusted with HemaDerm hemostatic powder. Following this, approximately 22 inches of icw-mgwsnoa-ebes iodoform gauze saturated with bacitracin ointment was placed in the maxillary sinus, completely filling the maxillary sinus. The tail of the tape/ending of the iodoform gauze was brought out through the antrostomy and subsequently through the left naris. A generous portion was brought out through the naris, so as to avoid the gauze falling back into the sinus through the antrostomy window. Next, the buccal incision was closed with a single 4-0 chromic suture in a running fashion. Finally, a mustache dressing was applied in the usual and customary fashion, and at this point the procedure was terminated. There were no intraoperative complications. Patient tolerated procedure well and was returned to the recovery room in satisfactory condition. MMGLORIA / CORTNEYN: [id number] /
[2017-12-29] MEDS ORDERED: NALOXONE 0.4 MG/ML 1 ML VIAL IV PRN (21:54)
[2017-12-29] MEDS: ASPIRIN 81 MG PO SCH (21:56)
[2017-12-29] MEDS ORDERED: TEMAZEPAM 30 MG CAP PO PRN (22:00)
[2017-12-29] MEDS ORDERED: HYDROmorphone PCA 5 MG/25 ML SYRINGE IV PRN (22:10)
[2017-12-30] MEDS: LACTATED RINGERS 1,000 ML IV SCH ×3 (05:29→12:07)
[2017-12-30] MEDS: LEVOTHYROXINE 100 MCG TAB PO SCH (06:24)
[2017-12-30] MEDS: ASPIRIN 81 MG PO SCH (08:52)
[2017-12-30] MEDS: VERAPAMIL SR 240 MG TABLET.ER PO SCH (08:52)
[2017-12-30] MEDS: LISINOPRIL 5 MG TAB PO SCH (09:07)
[2017-12-30] MEDS: FLUoxetine HCL 20 MG CAP PO SCH (09:07)
[2017-12-30] MEDS: ONDANSETRON 4 MG/2 ML VIAL IVP PRN (09:27)
[2017-12-30 14:26] VITALS: BP 154/69; PULSE 85; RESP 16; TEMP 98.2
--- NOTE | 2017-12-31 23:57 | DS ---
DISCHARGE SUMMARY DATE OF ADMISSION: 12/29/2017 DATE OF DISCHARGE: 12/30/2017 REASON FOR ADMISSION: Status post left Mast-Selene with left intranasal antrostomy and control of hemorrhaging/pain. OPERATIVE PROCEDURE: Left Mast-selene with left intranasal antrostomy. Date of surgery 12/29/2017. COMPLICATIONS: None. OPERATING SURGEON: Dr. Noel Peterson. HISTORY OF PRESENT ILLNESS: This patient was a 77-year-old female who was originally seen in my office for evaluation of chronic left maxillary sinusitis. A CT scan of the sinuses revealed that the left maxillary sinus was filled with polyps and fluid. It was therefore recommended that the patient undergo a left Mast-Selene with left intranasal antrostomy. Past medical history and review of systems are documented in the history and physical and will not be repeated here. A CT scan of the sinuses revealed left chronic maxillary sinusitis with left intrasinal polyps. The patient's surgery was uneventful and the patient was admitted for control of hemorrhaging and pain postoperatively. HOSPITAL COURSE: The patient's hospital course was uneventful. The patient was placed on IV antibiotic; namely, Ancef 2 grams IV q.8 hours; and she was placed on a NURSE PRACTITIONER ADULT pump to control pain. The left maxillary sinus had been packed with iodoform gauze. Again, the patient's hospital course was uneventful. DISCHARGE STATUS: The patient is discharged at this time in satisfactory condition. The intranasal packing of the 1/4-inch iodoform gauze was removed in the patient's room without incident. The patient was given verbal instructions and also will be given the same instructions in a written form. She will be discharged on the following medications: 1. Ceftin 500 mg p.o. b.i.d. 2. The patient already has [place] 7.25/325 mg tablets at home and therefore does not need any additional pain medication. She has been advised that she can resume normal activities, work, exercise, etc., and a normal diet. She has been cautioned not to blow her nose, but she may sniff back and spit out any mucus. Blowing her nose may cause subcutaneous emphysema on the left side of her face. She is scheduled to be seen in my office for a postoperative visit on 01/06/2018 at 10:30 a.m. The patient is aware of her postoperative appointment. All of her questions were answered in the presence of nurse who was caring for her. The patient is discharged at this time in satisfactory condition and will be given a complete instruction sheet which will detail the conversations that I had with her in her room. SUSAN / JAJA: [id number] /
== END 2017-12-30 15:25 | disposition home or self-care (01) | DRG 136 ==
LOC: OR 10:33 → 3SUR 14:20
PROVIDERS: ADMIT Otolaryngology; ATTEND Otolaryngology
PROC: 09BR8ZZ Excision of Left Maxillary Sinus, Via Natural or Artificial Opening Endoscopic (ICD-10-PCS; principal; 2017-12-29 12:10)
DX: J32.0 Chronic maxillary sinusitis (principal); J33.8 Other polyp of sinus; J34.2 Deviated nasal septum; I25.10 Atherosclerotic heart disease of native coronary artery without angina pectoris; I10 Essential (primary) hypertension; E03.9 Hypothyroidism, unspecified; K21.9 Gastro-esophageal reflux disease without esophagitis; E78.5 Hyperlipidemia, unspecified; Z96.649 Presence of unspecified artificial hip joint; Z96.659 Presence of unspecified artificial knee joint; Z90.49 Acquired absence of other specified parts of digestive tract; Z90.710 Acquired absence of both cervix and uterus; Z98.1 Arthrodesis status; Z88.2 Allergy status to sulfonamides; Z79.82 Long term (current) use of aspirin; Z79.890 Hormone replacement therapy
CPT/HCPCS: 94760; 94762